=== PATIENT | male | born 1955 | race Caucasian/White ===

== ENCOUNTER 2019-05-10 10:08 | Inpatient (IN) | payer OTHER ==
[~2019-05-10] VITALS: Ht 175.3 cm; Wt 83.5 kg
[2019-05-10 12:30] VITALS: BP 146/67
--- NOTE | 2019-05-10 12:31 | HPEPDOC ---
School Speech Language Pathologist Note DATE OF ADMISSION: 05/10/19 SOURCE OF ADMISSION INFORMATION: Patient and [facility] records CHIEF COMPLAINT: stroke HISTORY OF PRESENT ILLNESS: 63M pmh HTN, DM who developed a left facial droop and altered mental status who presented to [facility] on 04/26/19 and admitted for stroke. MRI showed, Acute small infarcts within bilateral thalami, right midbrain, right occipital lobe and left cerebellum. These findings are likely related to embolic disease. CT angio head and neck revealed a right P1 occlusion with bilateral vertebral artery stenosis, outside the tPA window and not a candidate for thrombectomy. He was started on Asa and Plavix to be continued for 90 days, stop date 08/07/19, then to be followed by ASA only. He had severe dysphagia and had a PEG tube placed on 05/06/19 in addition to urinary retention for which he was seen by urology who recommended doxazosin and jane with outpatient follow-up. Repeat CTH on 05/07/19 showed No evidence of acute intracranial hemorrhage, extraaxial fluid or midline shiftRedemonstration of right occipital lobe infarctionOvoid 1 cm bilateral thalamic infarctions, stable. 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 ECHO on 04/28/19 showed LVEF 65-70% unable to comment on regional wall motionno interatrial shunt visualized by bubble study. EEG was also performed on 05/02/19 due to low arousal which was negative for epileptiform activity.Provigil was initiated then later discontinued due to increased agitation requiring Seroquel. He was evaluated by therapy, found to be well below his prior level of function and deemed medically appropriate for discharge to ARU on 05/10/19. REVIEW OF SYSTEMS: The following is a completed review of systems and has been reviewed. Review of systems otherwise unremarkable. PAIN: Patient self reports no pain EYES: +visual deficit EARS, NOSE, & THROAT:+dysphagia CARDIOVASCULAR: Denies chest pain or palpitations PULMONARY: Denies shortness of breath GASTROINTESTINAL: Denies constipation/diarrhea GENITOURINARY: +urinary retention MUSCULOSKELETAL: no joint pain/deformities NEUROLOGICAL:+stroke HEMATOLOGICAL: no easy bruising SKIN: PeG site PSYCHIATRIC: +confused All other review of systems found to be negative. PAST MEDICAL HISTORY: as per HIP PAST SURGICAL HISTORY: as per HPI ALLERGIES: Please see below. MEDICATIONS: Please see below. SOCIAL HISTORY: no ETOH, smoking, or illicit drugs DIET: NPO tube feeds PHYSICAL EXAMINATION: VITAL SIGNS: Please see below. GENERAL: Pleasant and cooperative. No acute distress. HEENT: PERRL. Extraocular movements impaired, eyes fixed inferiorly and to the right, unable to cross midline or gaze vertically, Clear conjunctiva CARDIOVASCULAR: Regular rate and rhythm. No murmurs, rubs, or gallops LUNGS: Clear to auscultation bilaterally. No wheezes. No rhonchi ABDOMEN: Soft, nontender, nondistended. Positive bowel sounds. Normal active bowel sounds +PEG NEUROLOGICAL: Alert and oriented to self only . 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 4/5 strength in left lower extremity. SKIN:no rash LABORATORY DATA: Please see below. A1C 9.8% IMAGING:Imaging documentation personally reviewed by record FUNCTIONAL STATUS: Premorbid: Independent with all activities of daily life as well as mobility On Admission: Min assist walking, Mod-Max stairs, Unable to do bed mobility, total dressing, toileting and eating GOALS: Supervision with RW household distances, stairs, functional transfers, toileting, eating, dressing, medical optimization, assess for DME needs ASSESSMENT:63-year-old M with past medical history of HTN and DM who presents status post stroke PLAN: 1. Rehab: PT strengthen, stretch, maintain ROM bilat LE, advance gait training OT strengthen, stretch, maintain ROM bilat UE, adapt therapies for visual deficits HEDGE FUND PRINCIPAL: advance diet when safe, cognitive evaluation and treat aphasia, NPO with PEG 2. 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 Cardiac: pmh HTN, c/u BP meds and adjust prn, medicine consulted to assist in management -will discuss possibility of in-house loop recorder placement with cardiology for possible cryptogenic stroke 4. Resp: encourage incentive spirometry, will order CXR for recent PEG placement and poor oral secretion management for possible aspiration PNA 5. Endo: pmh DM, cu ISS FS q6h 6. : urinary retention with Jane placed per [facility] urology, will consider voiding trial once with [place] cath within 48hr of admission -collect UA to r/o infection 7. DVT ppx: Lovenox and TEDs 8. GI ppx: Lansoprazole BID 9. Nutrition: PEG feeds, will obtain dietary consult 10. Skin: turn q2h and monitor for skin break down 11. Psych: episodes of agitation, trazodone ordered prn, insomnia c/u trazodone 25mg standing 12. Dispo: tbd POST ADMISSION PHYSICIAN EVALUATION: Medical and functional status: Description of medical status, medical assessment: As above. Rehabilitation diagnosis and current and prior cold morbid medical conditions as above. Risk of complications and plans to mitigate them as above. Description of functional status current status is as above. Prior status as above. Status compared to preadmission: There are no clinically significant differences between the patient's current status and the information described on the preadmission screening document. Treatment plan anticipated: Treatment plan is as described above. Required disciplines including physical therapy, occupational therapy, others as noted above. Intensity of services: 3 hours a day, 6 days a week. Special considerations: There are no specific special or safety considerations that would likely preclude immediate implementation of an intensive rehabilitation program or subsequently influence the plan of care. ATTESTATION: Considering all the information above, it is my best judgment that this patient requires intensive rehabilitation therapy as described above and an inpatient hospital environment due to the complexity of nursing, medical, and rehabilitation needs required by the patient. Furthermore, this patient can reasonably be expected to participate in an benefit from an inpatient rehabilitation stay with an interdisciplinary team approach to the delivery of rehabilitation care under the direction and supervision of rehabilitation physician. PROGNOSIS: Excellent ESTIMATED LENGTH OF STAY:28-32 days. PROJECTED DISCHARGE DESTINATION: Home with family support and any durable medical equipment required to increase functional safety and mobility TIME SPENT COUNSELING AND COORDINATING INITIAL CARE: Greater than 70 minutes. Vital Signs Vital Signs Date Time Temp Pulse Resp B/P (MAP) Pulse Ox O2 Delivery O2 Flow Rate FiO2 05/10/19 12:30 97.4 76 18 146/67 (93) 96 Home Medications Scheduled Aspirin (Aspirin) 81 Mg Tab.chew, 81 MG PO DAILY, (Reported) STARTED AT [facility] Atorvastatin Calcium (Lipitor) 80 Mg Tablet, 80 MG PO DAILY, (Reported) STARTED AT [facility] Carbamide Peroxide (Gly-Oxide) 15 Ml Solution, 5 DROP MT ACHS, (Reported) STARTED AT [facility] Clopidogrel Bisulfate (Clopidogrel) 75 Mg Tablet, 75 MG PO DAILY, (Reported) STARTED AT [facility] Doxazosin Mesylate (Doxazosin) 2 Mg Tablet, 2 MG PO DAILY, (Reported) STARTED AT [facility] Enoxaparin Sodium (Lovenox) 40 Mg/0.4 Ml Syringe, 40 MG SC DAILY, (Reported) STARTED AT [facility] Insulin Human Lispro (Humalog) 100 Unit/1 Ml Vial, 1 DOSE SC ACHS, (Reported) STARTED AT [facility] Lisinopril (Lisinopril) 5 Mg Tablet, 5 MG PO DAILY, (Reported) Melatonin (Melatonin) 5 Mg Tablet, 5 MG PO QHS, (Reported) Scheduled PRN Acetaminophen (Tylenol) 325 Mg Tablet, 650 MG PO QID PRN for PAIN, (Reported) Quetiapine Fumarate (Quetiapine Fumarate) 25 Mg Tablet, 25 MG PO Q8H PRN for AGITATION, (Reported) STARTED AT [facility] Allergies Coded Allergies: No Known Allergies (Unverified , 05/10/19) A-FIB/CHADSVASC A-FIB History Current/History of A-Fib/PAF?: No Current PO Anticoag Therapy: No SHARAN HOOVER MD May 10, 2019 12:31
[2019-05-10] MEDS ORDERED: GLUCAGON FOR INJ 1 MG VIAL (J1610) SC PRN (12:45)
[2019-05-10] MEDS ORDERED: traZODone 25MG PER 1/2 TABLET PO PRN (12:45)
[2019-05-10] MEDS ORDERED: GLUCOSE 4 GM CHEW TABLET PO PRN (12:45)
[2019-05-10] MEDS ORDERED: DEXTROSE 50% 50 ML SYRINGE IV PRN (12:45)
[2019-05-10] MEDS ORDERED: DOXA2TAB3 PO (13:08)
[2019-05-10] MEDS ORDERED: CLOP75TA2 PO (13:08)
[2019-05-10] MEDS ORDERED: QUET1TAB7 PO (13:08)
[2019-05-10] MEDS ORDERED: [UNRECOGNIZED DRUG - CODE] MT (13:08)
[2019-05-10] MEDS ORDERED: LISI-542 PO (13:08)
[2019-05-10] MEDS ORDERED: LIPI80TA PO (13:08)
[2019-05-10] MEDS ORDERED: INSUHUMDS SC (13:08)
[2019-05-10] MEDS ORDERED: ACET-907 PO (13:08)
[2019-05-10] MEDS ORDERED: LOVE1INJ SC (13:08)
[2019-05-10] MEDS ORDERED: ASPI81CH44 PO (13:08)
[2019-05-10] MEDS ORDERED: MELA5TAB7 PO (13:08)
[2019-05-10] MEDS: LANSOPRAZOLE SUSPENSION 30 MG/10 ML ORAL SYRINGE (FIRST-LANSOPRAZOLE) PEG SCH (16:27)
[2019-05-10] MEDS: POLYVINYL ALCOHOL OPHTH SOLN 15 ML(LIQUITEARS) OU SCH ×3 (16:59→20:39)
[2019-05-10] MEDS: HumaLOG INSULIN (NovoLOG) PER UNIT SC SCH (16:59)
--- NOTE | 2019-05-10 17:56 | CR ---
DATE OF CONSULTATION: 05/10/2019 REFERRING PHYSICIAN: Dr. Clemens REASON OR CONSULT: Management of chronic medial problems, hypertension, diabetes. HISTORY OF PRESENTING ILLNESS: This is a 63-year-old male with hypertension and diabetes who was transferred to [facility] after being treated for acute ischemic bilateral thalamic right occipital right cerebellar stroke at [facility]. 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 He called EMS after pulling over as he was driving erratically. CT of the brain in the emergency room was negative for acute hemorrhage, acute ischemic stroke. He was not a candidate for IV TPA due to the time of presentation and was transferred to [facility] for further workup. The patient had a STAT CT angio which showed a YP1 occlusion with bilateral vertebral artery stenosis and was not a candidate for mechanical thrombectomy. His admitting blood pressure was over 200 and glucose was over 85. He was admitted to the neurology stroke service and was started on aspirin and Plavix which was held on 05/02 for feeding tube placement on 05/06. He continued to have facial drooping and dysphagia with aspiration risk and patient was fed through a feeding tube. MRI of the brain showed acute right posterior cerebral infarct. MRA of the brain showed a 2.8 mm aneurysm of the left proximal supraclinoid internal carotid artery. Bubble study echo was done on 04/28/2019 with no interatrial shunting visualized. EF was 65 to 70 percent. EEG was abnormal consistent with encephalopathy with slow and disorganized background but no epileptiform activity was seen. He continued to have persistent dysarthria often disoriented according to the and at times not remembering who she is or who the family is. He continues to have left sided hemianopia. The patient was subsequently transferred to subacute rehabilitation. PAST MEDICAL HISTORY: Hypertension, diabetes. 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 PAST SURGICAL HISTORY: Hernia surgery, feeding tube placement. ALLERGIES: No known drug allergies. SOCIAL HISTORY: [employer] and is self employed. Social alcohol use. Quit smoking 10-15 years ago. Previously smoked a pack a day for about 10-years. FAMILY HISTORY: Father is alive in his 80's. He used to drink alcohol and smoke cigarettes. Mother in her late 80's with carotid artery stenosis. REVIEW OF SYSTEMS: Could not be obtained as patient has moderate dysarthria. PHYSICAL EXAMINATION: VITALS: Temperature 97.4, pulse 76, respiratory rate 18, blood pressure 146/67, 96% on room air. Generally the patient is awake, alert and oriented to himself only. He is oriented to date and time. He is following commands. He has purposeful movement. Patient is able to follow single with extraocular muscles. He continues to have some dysarthria. His speech is fluent. Sensory is intact bilaterally upper and lower extremities. There is no pronator drift. Bilateral motor function is 5/5 in the bilateral upper extremities and lower extremities. Gait was deferred. Lungs are clear to auscultation. No wheezes, rales or rhonchi. Heart S1, S2 sinus rhythm. No murmurs, rubs or gallops. Abdomen is soft and nontender and nondistended. Extremities no cyanosis, clubbing or pitting edema. The patient had a feeding tube, percutaneous endoscopic gastrostomy tube clean and dry. No erythema or tenderness. LABORATORY DATA: Pending. On 05/10/2019 lab data at [facility] white count 9, hemoglobin 12, hematocrit 36, platelet count 439, sodium 134, potassium 4, chloride 94, BUN 11, creatinine 0.51, glucose 192. A1c of 9.8. ASSESSMENT AND PLAN: This is a 63-year-old male with diabetes, hypertension, previous history of smoking quit about 10 years who presented to an [facility] 04/26/2019 with dysarthria, facial droop, altered mental status and was driving erotically. CT of the head was negative and patient was sent to [facility] and was found to have acute ischemic bilateral thalamic right occipital and right cerebellar stroke. The patient had a negative bubble study. He was found to have severe stenosis right proximal P2 segment with a hyperdense vessel sign at that level, severe stenosis left cavernous and supraclinoid ICA with 70% narrowing of the lumen and focal occlusion of left V4 segment severe stenosis due to atherosclerotic plaque. The patient was treated with aspirin and Plavix and discharged to acute rehabilitation unit at [facility] for PMR services. Presenting blood pressure at [facility] was 220 and goal was to get the blood pressure less than 130. He is currently in Lisinopril. ACUTE ISSUES: 1. CVA. Bilateral thalamic right occipital, right cerebellar secondary to bilateral vertebral basal intracranial and extracranial artery disease in the setting of diabetes, hypertension and prior history of smoking. Patient is continued on aspirin atorvastatin, Plavix. Plavix is to be continued for three months time. 2. Hypertension. Presenting blood pressure during his stroke symptom was 219 and currently stable with goal of less than 130/90. He is currently on Lisinopril 5 mg daily. 3. Acute encephalopathy secondary to CVA according to the the patient at times pulls on his feeding tube and Estrada catheter and requires a sitter. Sitter will be provided. Seroquel as needed every 8 hours. 4. Type 2 diabetes. He is currently on Lispro insulin sliding scale. A1c is elevated at 9.8. Depending on the finger sticks every 6 hours on the feeding tube as he is nothing by mouth status, may need to start on basal insulin, Levemir insulin once daily. 5. DVT prophylaxis. Currently on Lovenox subcu. MTDD
[2019-05-10] MEDS ORDERED: CARBAMIDE PEROXIDE 6.5% OTIC SOLN 15ML XX SCH (18:30)
[2019-05-10] MEDS ORDERED: GLY OXIDE SSP SCH (18:30)
--- NOTE | 2019-05-10 18:55 | REP ---
Bilateral lower extremity Duplex Doppler venous ultrasound: Real time compression and duplex Doppler interrogation of the bilateral lower extremity deep venous system is performed. Bilaterally, the common femoral, superficial femoral and popliteal veins are fully compressible with transducer pressure and demonstrate normal spontaneous and phasic flow, without evidence of deep venous thrombosis. Impression: No evidence of deep venous thrombosis of the bilateral lower extremity femoral popliteal venous system. Electronically Signed by Yash Velázquez MD 05/10/2019 06:46 P
--- NOTE | 2019-05-10 19:38 | REP ---
CHEST, SINGLE VIEW: Single view of the chest is performed. There appears to be infiltrate laterally in the left lung base. The right lung is clear. Cardiac silhouette is mildly prominent. There is calcification of the thoracic aorta. There are degenerative changes of the spine. IMPRESSION: Infiltrate lateral left base. Electronically Signed by Yash Velázquez MD 05/12/2019 04:36 P
[2019-05-10 20:00] VITALS: BP 168/80
[2019-05-10] MEDS: ACETAMINOPHEN 325 MG/10.15 ML UDC GT PRN (20:39)
[2019-05-10] MEDS ORDERED: LEVEMIR (INSULIN DETEMIR) 1 UNITS/0.01ML SC SCH (21:00)
[2019-05-10] MEDS ORDERED: traZODone 25MG PER 1/2 TABLET PO SCH (21:00)
[2019-05-10] MEDS ORDERED: HumaLOG INSULIN (NovoLOG) PER UNIT SC SCH (21:00)
[2019-05-11 05:52] VITALS: BP 143/68
[2019-05-11 06:17] LABS: BASO # 0.1 10^3/uL (0.0-0.2); BASO % 0.6 % (0.0-1.0); EOS # 0.3 10^3/uL (0.0-0.5); EOS % 2.5 % (0.0-3.0); HEMATOCRIT 35.9 % (42.0-52.0); HEMOGLOBIN 11.9 g/dl (13.5-17.5); LYMPH # 2.4 10^3/uL (1.5-5.0); LYMPH % 23.6 % (24.0-44.0); MEAN CORPUSCULAR HGB CONC 33.1 g/dl (32.0-36.5); MEAN CORPUSCULAR VOLUME 87.3 fl (80.0-96.0); MONO # 0.9 10^3/uL (0.0-0.8); MONO % 8.5 % (0.0-5.0); NEUTROPHILS # 6.4 10^3/uL (1.5-8.5); NEUTROPHILS % 64.2 % (36.0-66.0); PLATELET COUNT, AUTOMATED 481 10^3/uL (150-450); RED BLOOD COUNT 4.11 10^6/uL (4.30-6.10)
[2019-05-11 06:39] LABS: HEMOGLOBIN A1c 9.1 %
[2019-05-11 06:47] LABS: ALBUMIN 2.9 GM/DL (3.2-5.2); ALT/SGPT 41 U/L (12-78); BILIRUBIN,TOTAL 0.3 MG/DL (0.2-1.0); BLOOD UREA NITROGEN 13 MG/DL (7-18); CALCIUM LEVEL 8.9 MG/DL (8.8-10.2); CARBON DIOXIDE LEVEL 33 MEQ/L (21-32); CHLORIDE LEVEL 97 MEQ/L (98-107); GLOMERULAR FILTRATION RATE > 60.0 (>49); GLUCOSE, FASTING 272 MG/DL (70-100); POTASSIUM SERUM 3.9 MEQ/L (3.5-5.1); SODIUM LEVEL 135 MEQ/L (136-145)
[2019-05-11] MEDS ORDERED: MAGIC MOUTHWASH SUSPENSION BTL SSP SCH (07:30)
[2019-05-11] MEDS: HumaLOG INSULIN (NovoLOG) PER UNIT SC SCH ×3 (07:56→18:23)
[2019-05-11] MEDS: ENOXAPARIN 40 MG/0.4 ML SYRINGE (J1650) SC SCH (07:57)
[2019-05-11] MEDS: LANSOPRAZOLE SUSPENSION 30 MG/10 ML ORAL SYRINGE (FIRST-LANSOPRAZOLE) PEG SCH ×2 (07:57→20:54)
[2019-05-11] MEDS: ASPIRIN 81 MG CHEW TABLET PEG SCH (07:57)
[2019-05-11] MEDS: CLOPIDOGREL 75 MG TAB PO SCH (07:59)
[2019-05-11] MEDS: ATORVASTATIN 20 MG TAB GT SCH (07:59)
[2019-05-11] MEDS: POLYVINYL ALCOHOL OPHTH SOLN 15 ML(LIQUITEARS) OU SCH ×4 (08:00→21:01)
[2019-05-11] MEDS ORDERED: LISINOPRIL 5 MG TAB PO SCH (09:00)
[2019-05-11] MEDS ORDERED: DOXAZOSIN MESYLATE 1 MG TAB PO SCH (09:00)
[2019-05-11] MEDS ORDERED: traZODone 25MG PER 1/2 TABLET GT PRN (11:45)
--- NOTE | 2019-05-11 11:52 | IPNPDOC ---
PM&R Progress Note DATE OF SERVICE: May 11, 2019 Program Director [employer] Progress Note Subjective: Patient seen in the evening, was yael to say his 's name and follow commands. He appeared calm. REVIEW OF SYSTEMS: The following is a completed review of systems and has been reviewed. Review of systems otherwise unremarkable. PAIN: Patient self reports no pain EYES: +visual deficit EARS, NOSE, & THROAT:+dysphagia CARDIOVASCULAR: Denies chest pain or palpitations PULMONARY: Denies shortness of breath GASTROINTESTINAL: Denies constipation/diarrhea GENITOURINARY: +urinary retention MUSCULOSKELETAL: no joint pain/deformities NEUROLOGICAL:+stroke HEMATOLOGICAL: no easy bruising SKIN: PeG site PSYCHIATRIC: +confused All other review of systems found to be negative. PHYSICAL EXAMINATION: VITAL SIGNS: Please see below. GENERAL: Pleasant and cooperative. No acute distress. HEENT: PERRL. Extraocular movements impaired, eyes fixed inferiorly and to the right, unable to cross midline or gaze vertically, Clear conjunctiva CARDIOVASCULAR: Regular rate and rhythm. No murmurs, rubs, or gallops LUNGS: Clear to auscultation bilaterally. No wheezes. No rhonchi ABDOMEN: Soft, nontender, nondistended. Positive bowel sounds. Normal active bowel sounds +PEG NEUROLOGICAL: Alert and oriented to self only . 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 4/5 strength in left lower extremity. SKIN:no rash ASSESSMENT:63-year-old M with past medical history of HTN and DM who presents status post stroke PLAN: 1. Rehab: PT strengthen, stretch, maintain ROM bilat LE, advance gait training OT strengthen, stretch, maintain ROM bilat UE, adapt therapies for visual deficits RAG BOILER: advance diet when safe, cognitive evaluation and treat aphasia, NPO with PEG 2. 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 Cardiac: pmh HTN, c/u BP meds and adjust prn, medicine consulted to assist in management -will discuss possibility of in-house loop recorder placement with cardiology for possible cryptogenic stroke 4. Resp: encourage incentive spirometry, admission CXR +left lower lobe infiltrate, will start Levofloxacin, Duonebs and Guaifenesin- no leukocytosis at this point, will continue to monitor 5. Endo: pmh DM, cu ISS FS q6h 6. : urinary retention with Estrada placed per [facility] urology, will consider voiding trial once with [place] cath within 48hr of admission -collect UA to r/o infection 7. DVT ppx: Lovenox and TEDs, admission Dopplers negative 8. GI ppx: Lansoprazole BID 9. Nutrition: PEG feeds 10. Skin: turn q2h and monitor for skin break down 11. Psych: episodes of agitation, trazodone ordered prn, insomnia c/u trazodone 25mg standing -will also add Propranolol 10 mg TID to assist with agitation which may have a component of dysautonomia in setting of stroke 12. Dispo: tbd Allergies Coded Allergies: No Known Allergies (Unverified , 05/10/19) Vital Signs Vital Signs Date Time Temp Pulse Resp B/P (MAP) Pulse Ox O2 Delivery O2 Flow Rate FiO2 05/11/19 07:59 143/68 05/11/19 05:52 98.1 68 18 95 Laboratory Data CBC/BMP Laboratory Tests 05/11/19 05:54 Red Blood Count 4.11 L, Mean Corpuscular Volume 87.3, Mean Corpuscular Hemoglobin 29.0, Mean Corpuscular Hemoglobin Concent 33.1, Red Cell Distribution Width 11.3 L, Neutrophils (%) (Auto) 64.2, Lymphocytes (%) (Auto) 23.6 L, Monocytes (%) (Auto) 8.5 H, Eosinophils (%) (Auto) 2.5, Basophils (%) (Auto) 0.6, Neutrophils # (Auto) 6.4, Lymphocytes # (Auto) 2.4, Monocytes # (Auto) 0.9 H, Eosinophils # (Auto) 0.3, Basophils # (Auto) 0.1, Calcium Level 8.9, Aspartate Amino Transf (AST/SGOT) 20, Alanine Aminotransferase (ALT/SGPT) 41, Al kaline Phosphatase 93, Total Bilirubin 0.3, Total Protein 7.0, Albumin 2.9 L Labs 24H Laboratory Tests 2 05/10/19 16:47: Bedside Glucose (Misc Panel) 159H 05/10/19 20:28: Bedside Glucose (Misc Panel) 173H 05/11/19 05:54: Immature Granulocyte % (Auto) 0.6, White Blood Count 10.0, Red Blood Count 4.11L, Hemoglobin 11.9L, Hematocrit 35.9L, Mean Corpuscular Volume 87.3, Mean Corpuscular Hemoglobin 29.0, Mean Corpuscular Hemoglobin Concent 33.1, Red Cell Distribution Width 11.3L, Platelet Count 481H, Neutrophils (%) (Auto) 64.2, Lymphocytes (%) (Auto) 23.6L, Monocytes (%) (Auto) 8.5H, Eosinophils (%) (Auto) 2.5, Basophils (%) (Auto) 0.6, Neutrophils # (Auto) 6.4, Lymphocytes # (Auto) 2.4, Monocytes # (Auto) 0.9H, Eosinophils # (Auto) 0.3, Basophils # (Auto) 0.1, Nucleated Red Blood Cells % (auto) 0.0, Anion Gap 5L, Glomerular Filtration Rate > 60.0, Estimated Mean Plasma Glucose 214H, Hemoglobin A1c 9.1, Blood Urea Nitrogen 13, Creatinine 0.70, Sodium Level 135L, Potassium Level 3.9, Chloride Level 97L, Carbon Dioxide Level 33H, Calcium Level 8.9, Aspartate Amino Transf (AST/SGOT) 20, Alanine Aminotransferase (ALT/SGPT) 41, Alkaline Phosphatase 93, Total Bilirubin 0.3, Total Protein 7.0, Albumin 2.9L, Albumin/Globulin Ratio 0.71L Current Medications Current Medications Current Medications Medications (Trade) Dose Ordered Sig/Maricruz Route PRN Reason Start Time Stop Time Status Last Admin Dose Admin Acetaminophen (Tylenol Suspension) 650 mg Q4HP PRN GT PAIN OR FEVER 05/10/19 12:45 05/10/19 20:39 Albuterol/ Ipratropium (Duoneb (Ipr 0.5mg/Alb 2.5mg)) 3 ml RBID NEB 05/11/19 08:00 Artificial Tears (Akwa Tears) 2 drop QID OU 05/10/19 13:00 05/11/19 08:00 Aspirin (Aspirin Chewable) 81 mg DAILY PEG 05/11/19 09:00 05/11/19 07:57 Atorvastatin Calcium (Lipitor) 80 mg DAILY GT 05/11/19 09:00 05/11/19 07:59 Carbamide Peroxide (Debrox) 5 drop PCHS XX 05/10/19 18:30 05/14/19 18:29 Cancel Clopidogrel Bisulfate (PLAVix) 75 mg DAILY PO 05/11/19 09:00 05/11/19 07:59 Dextrose (Dextrose 50%) 25 ml ASDIRECTED PRN IV SEE LABEL COMMENTS 05/10/19 12:45 Doxazosin Mesylate (Cardura) 2 mg DAILY PO 05/11/19 09:00 05/11/19 07:58 Enoxaparin Sodium (Lovenox) 40 mg DAILY SC 05/11/19 09:00 05/11/19 07:57 Glucagon (Glucagon) 1 mg ASDIRECTED PRN SC SEE LABEL COMMENTS 05/10/19 12:45 Glucose (Glucose) 16 GM ASDIRECTED PRN PO SEE LABEL COMMENTS 05/10/19 12:45 Guaifenesin (Robitussin) 10 ml BID GT 05/11/19 09:00 Home Med (Med Rec Complete!) ASDIRECTED XX 05/10/19 13:30 05/10/19 13:30 DC Insulin Detemir (Levemir Insulin) 10 units QHS MN 05/10/19 21:00 Insulin Human Lispro (HumaLOG INSULIN) SEE PROTOCOL TABLE AC SC 05/10/19 17:30 05/11/19 07:56 Insulin Human Lispro (HumaLOG INSULIN) SEE PROTOCOL TABLE QHS MN 05/10/19 21:00 Lansoprazole (First-Lansoprazole Oral Suspension) 30 mg DAILY PEG 05/10/19 09:00 05/11/19 07:57 Levofloxacin (Levaquin) 750 mg DAILY@06 GT 05/11/19 10:30 05/17/19 06:01 Lidocaine/ Diphenhydr/Alum/ Mg/Simeth (Magic Mouthwash) 5ml AC SSP 05/11/19 07:30 05/11/19 07:54 Lisinopril (Prinivil) 5 mg DAILY PO 05/11/19 09:00 05/11/19 07:59 Patient Own Medication (Patient'S Own Med) PCHS MT 05/10/19 18:30 UNV Trazodone HCl (Desyrel) 25 mg Q6HP PRN PO AGITATION 05/10/19 12:45 Trazodone HCl (Desyrel) 25 mg QHS PO 05/10/19 21:00 05/10/19 20:39 SHARAN HOOVER MD May 11, 2019 11:52
[2019-05-11] MEDS: LevoFLOXacin 750 MG TABLET GT SCH (12:34)
[2019-05-11] MEDS: guaiFENesin SYRUP 200 MG/10 ML UDC GT SCH ×2 (12:34→20:53)
[2019-05-11 14:00] VITALS: BP 144/74
[2019-05-11] MEDS: IPRATROPIUM 0.5MG/ALBUTEROL 2.5MG INH SOL UD 3ML (DUONEB)(J7620) NEB SCH ×2 (14:01→19:31)
[2019-05-11 20:00] VITALS: BP 165/77
[2019-05-11] MEDS: FLUoxetine 20 MG CAP GT SCH (20:53)
[2019-05-11] MEDS ORDERED: traZODone 25MG PER 1/2 TABLET GT SCH (21:00)
[2019-05-11] MEDS: PROPRANOLOL 20 MG/5 ML PO SCH (21:06)
[2019-05-12] MEDS: LEVEMIR (INSULIN DETEMIR) 1 UNITS/0.01ML SC SCH
[2019-05-12] MEDS: HumaLOG INSULIN (NovoLOG) PER UNIT SC SCH ×3 (00:53→13:07)
[2019-05-12 04:00] VITALS: BP 176/80
[2019-05-12] MEDS: LevoFLOXacin 750 MG TABLET GT SCH (06:43)
[2019-05-12] MEDS: IPRATROPIUM 0.5MG/ALBUTEROL 2.5MG INH SOL UD 3ML (DUONEB)(J7620) NEB SCH (07:28)
[2019-05-12] MEDS ORDERED: LISINOPRIL 5 MG TAB GT SCH (09:00)
[2019-05-12] MEDS: LANSOPRAZOLE SUSPENSION 30 MG/10 ML ORAL SYRINGE (FIRST-LANSOPRAZOLE) PEG SCH ×2 (09:00→22:20)
[2019-05-12] MEDS ORDERED: LORazepam 2 MG/ML VIAL (J2060) IM PRN (09:15)
[2019-05-12] MEDS: ENOXAPARIN 40 MG/0.4 ML SYRINGE (J1650) SC SCH (09:29)
[2019-05-12] MEDS: PROPRANOLOL 20 MG/5 ML PO SCH ×2 (09:30→22:45)
[2019-05-12] MEDS: CLOPIDOGREL 75 MG TAB PO SCH (09:30)
[2019-05-12] MEDS: DOXAZOSIN MESYLATE 1 MG TAB GT SCH (09:30)
[2019-05-12] MEDS: ASPIRIN 81 MG CHEW TABLET PEG SCH (09:31)
[2019-05-12] MEDS: guaiFENesin SYRUP 200 MG/10 ML UDC GT SCH ×2 (09:31→22:19)
[2019-05-12] MEDS: POLYVINYL ALCOHOL OPHTH SOLN 15 ML(LIQUITEARS) OU SCH ×4 (09:31→22:26)
[2019-05-12] MEDS: ATORVASTATIN 20 MG TAB GT SCH (09:31)
--- NOTE | 2019-05-12 11:12 | IPNPDOC ---
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 REVIEW OF SYSTEMS: The following is a completed review of systems and has been reviewed. Review of systems otherwise unremarkable. PAIN: Patient self reports no pain EYES: +visual deficit EARS, NOSE, & THROAT:+dysphagia CARDIOVASCULAR: Denies chest pain or palpitations PULMONARY: Denies shortness of breath GASTROINTESTINAL: Denies constipation/diarrhea GENITOURINARY: +urinary retention MUSCULOSKELETAL: no joint pain/deformities NEUROLOGICAL:+stroke HEMATOLOGICAL: no easy bruising SKIN: PeG site PSYCHIATRIC: +confused All other review of systems found to be negative. PHYSICAL EXAMINATION: VITAL SIGNS: Please see below. GENERAL: Pleasant and cooperative. No acute distress. HEENT: PERRL. Extraocular movements impaired, eyes fixed inferiorly and to the right, unable to cross midline or gaze vertically, Clear conjunctiva CARDIOVASCULAR: Regular rate and rhythm. No murmurs, rubs, or gallops LUNGS: Clear to auscultation bilaterally. No wheezes. No rhonchi ABDOMEN: Soft, nontender, nondistended. Positive bowel sounds. Normal active bowel sounds +PEG NEUROLOGICAL: Alert and oriented to self only . 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 4/5 strength in left lower extremity. SKIN:no rash ASSESSMENT:63-year-old M with past medical history of HTN and DM who presents status post stroke PLAN: 1. 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 Cardiac: pmh HTN, c/u BP meds and adjust prn, medicine consulted to assist in management -will discuss possibility of in-house loop recorder placement with cardiology for possible cryptogenic stroke 4. Resp: encourage incentive spirometry, admission CXR +left lower lobe infiltrate, will start Levofloxacin, Duonebs and Guaifenesin- no leukocytosis at this point, will continue to monitor 5. Endo: pmh DM, cu ISS FS q6h 6. : urinary retention with Estrada placed per [facility] urology, will consider voiding trial once with [place] cath within 48hr of admission-plan to d/c catheter tomorrow -collect UA to r/o infection- UA negative 7. DVT ppx: Lovenox and TEDs, admission Dopplers negative 8. GI ppx: Lansoprazole BID 9. Nutrition: PEG feeds 10. Skin: turn q2h and monitor for skin break down 11. Psych: episodes of agitation, trazodone ordered prn, insomnia c/u trazodone 25mg qHS standing -will also add Propranolol 10 mg TID to assist with agitation which may have a component of dysautonomia in setting of stroke -may use Ativan IM prn agitation if trazodone does not work -avoid overstimulating and adjust environment prn 12. Dispo: tbd Allergies Coded Allergies: No Known Allergies (Unverified , 05/10/19) Vital Signs Vital Signs Date Time Temp Pulse Resp B/P (MAP) Pulse Ox O2 Delivery O2 Flow Rate FiO2 05/12/19 09:31 176/80 05/12/19 09:30 89 05/12/19 09:12 18 97 05/12/19 04:00 98.9 Laboratory Data Labs 24H Laboratory Tests 2 05/11/19 12:08: Bedside Glucose (Misc Panel) 155H 05/11/19 14:04: Urine Color YELLOW, Urine Appearance CLOUDYH, Urine pH 9.0, Urine Specific [place] 1.014, Urine Protein NEGATIVE, Urine Glucose (UA) NEGATIVE, Urine Ketones NEGATIVE, Urine Blood NEGATIVE, Urine Nitrite NEGATIVE, Urine Bilirubin NEGATIVE, Urine Urobilinogen 0.2, Urine Leukocyte Esterase NEGATIVE, Urine WBC (Auto) 0, Urine RBC (Auto) 0, Urine Hyaline Casts (Auto) 0, Urine Bacteria ( Auto) NEGATIVE, Urine Squamous Epithelial Cells 0, Urine Amorphous Sediment SMALLH, Urine Mucus (Auto) SMALL, Urine Sperm (Auto) 05/11/19 18:19: Bedside Glucose (Misc Panel) 134H 05/12/19 00:14: Bedside Glucose (Misc Panel) 162H 05/12/19 06:22: Bedside Glucose (Misc Panel) 174H Current Medications Current Medications Current Medications Medications (Trade) Dose Ordered Sig/Maricruz Route PRN Reason Start Time Stop Time Status Last Admin Dose Admin Acetaminophen (Tylenol Suspension) 650 mg Q4HP PRN GT PAIN OR FEVER 05/10/19 12:45 05/10/19 20:39 Albuterol/ Ipratropium (Duoneb (Ipr 0.5mg/Alb 2.5mg)) 3 ml RBID NEB 05/11/19 08:00 05/12/19 07:28 Artificial Tears (Akwa Tears) 2 drop QID OU 05/10/19 13:00 05/12/19 09:31 Aspirin (Aspirin Chewable) 81 mg DAILY PEG 05/11/19 09:00 05/12/19 09:31 Atorvastatin Calcium (Lipitor) 80 mg DAILY GT 05/11/19 09:00 05/12/19 09:31 Carbamide Peroxide (Debrox) 5 drop PCHS XX 05/10/19 18:30 05/14/19 18:29 Cancel Clopidogrel Bisulfate (PLAVix) 75 mg DAILY PO 05/11/19 09:00 05/12/19 09:30 Dextrose (Dextrose 50%) 25 ml ASDIRECTED PRN IV SEE LABEL COMMENTS 05/10/19 12:45 Doxazosin Mesylate (Cardura) 2 mg DAILY GT 05/12/19 09:00 05/12/19 09:30 Doxazosin Mesylate (Cardura) 2 mg DAILY PO 05/11/19 09:00 05/11/19 11:43 DC 05/11/19 07:58 Enoxaparin Sodium (Lovenox) 40 mg DAILY SC 05/11/19 09:00 05/12/19 09:29 Fluoxetine HCl (PROzac) 20 mg QHS GT 05/11/19 21:00 05/11/19 20:53 Glucagon (Glucagon) 1 mg ASDIRECTED PRN SC SEE LABEL COMMENTS 05/10/19 12:45 Glucose (Glucose) 16 GM ASDIRECTED PRN PO SEE LABEL COMMENTS 05/10/19 12:45 Guaifenesin (Robitussin) 10 ml BID GT 05/11/19 09:00 05/12/19 09:31 Home Med (Med Rec Complete!) ASDIRECTED XX 05/10/19 13:30 05/10/19 13:30 DC Insulin Detemir (Levemir Insulin) 5 units DAILY@0000 [place] 05/12/19 00:00 Insulin Detemir (Levemir Insulin) 10 units QHS [place] 05/10/19 21:00 05/11/19 11:56 DC Insulin Human Lispro (HumaLOG INSULIN) SEE PROTOCOL TABLE AC [place] 05/10/19 17:30 05/11/19 11:46 DC 05/11/19 07:56 Insulin Human Lispro (HumaLOG INSULIN) SEE PROTOCOL TABLE Q6H [place] 05/11/19 12:00 05/12/19 06:43 Insulin Human Lispro (HumaLOG INSULIN) SEE PROTOCOL TABLE QHS [place] 05/10/19 21:00 05/11/19 11:46 DC Lansoprazole (First-Lansoprazole Oral Suspension) 30 mg BID PEG 05/11/19 21:00 05/12/19 09:00 Lansoprazole (First-Lansoprazole Oral Suspension) 30 mg DAILY PEG 05/10/19 09:00 05/11/19 11:46 DC 05/11/19 07:57 Levofloxacin (Levaquin) 750 mg DAILY@06 GT 05/11/19 10:30 05/17/19 06:01 05/12/19 06:43 Lidocaine/ Diphenhydr/Alum/ Mg/Simeth (Magic Mouthwash) 5ml AC SSP 05/11/19 07:30 05/11/19 11:43 DC 05/11/19 07:54 Lisinopril (Prinivil) 5 mg DAILY GT 05/12/19 09:00 05/12/19 09:31 Lisinopril (Prinivil) 5 mg DAILY PO 05/11/19 09:00 05/11/19 11:43 DC 05/11/19 07:59 Lorazepam (Ativan) 1 mg Q6HP PRN IM AGITATION 05/12/19 09:15 Miscellaneous (Unresolved Patient Own Med Order) SEE LABEL COMMENTS DAILY XX 05/12/19 09:00 Patient Own Medication (Patient'S Own Med) PCHS MT 05/10/19 18:30 UNV Propranolol HCl (Inderal Liquid) 10 mg TID PO 05/11/19 21:00 05/12/19 09:30 Trazodone HCl (Desyrel) 25 mg Q6HP PRN GT AGITATION 05/11/19 11:45 05/11/19 18:36 Trazodone HCl (Desyrel) 25 mg Q6HP PRN PO AGITATION 05/10/19 12:45 05/11/19 11:43 DC Trazodone HCl (Desyrel) 25 mg QHS GT 05/11/19 21:00 05/12/19 09:07 DC 05/11/19 20:53 Trazodone HCl (Desyrel) 25 mg QHS PO 05/10/19 21:00 05/11/19 11:43 DC 05/10/19 20:39 Trazodone HCl (Desyrel) 50 mg QHS GT 05/12/19 21:00 SHARAN HOOVER MD May 12, 2019 11:12
[2019-05-12 14:00] VITALS: BP 96/52
--- NOTE | 2019-05-12 15:30 | REP ---
Acute abdominal series three views including PA chest and supine upright abdomen: PA chest: Comparison is 05/10/2019. On the comparison study there was an infiltrate in the left lateral base. This infiltrate has resolved. Lung morelos are clear. Cardiac size is normal. The lor, mediastinum, skeletal structures are unremarkable. There is no free subdiaphragmatic air. Impression: Negative PA chest. Abdomen, supine upright views: The bowel gas pattern is normal. There is tubing superimposed over the abdomen on the left, possibly a G tube. There are no calcifications. The skeletal and soft tissue structures otherwise are unremarkable except for a thin opaque linear marker superimposed over the inferior pelvis. Impression: Normal bowel gas pattern. Probable G tube. Thin linear marker superimposed over the inferior pelvis. Electronically Signed by Yash Hamilton MD 05/12/2019 03:21 P
--- NOTE | 2019-05-12 15:57 | IPNPDOC ---
Text Note Date of Service The patient was seen on 05/12/19. NOTE 18 F replacement gastrostomy tube placed at the bedside. I am able to flush and aspirate a small amount of the flush but not clearly bilious. Would study the placement of gastrostomy first with gastrograffin before using for feeding/meds. Order for fluoro gastrograffin study placed. If placement ok, can use the replacement tube. Recommend protect tube with abdominal binder. VS,Fishbone, I+O VS, Fishbone, I+O Vital Signs Date Time Temp Pulse Resp B/P (MAP) Pulse Ox O2 Delivery O2 Flow Rate FiO2 05/12/19 14:00 97.7 72 18 96/52 (67) 97 I&O- Last 24 Hours up to 6 AM 05/12/19 06:00 Intake Total 670 ml Output Total 1475 ml Balance -805 ml EREN ROSENBERG MD May 12, 2019 15:57
[2019-05-12] MEDS ORDERED: MORPHINE 10MG/0.5ML ORAL CONCENTRATE SOLUTION U/D SL PRN (16:00)
[2019-05-12 20:00] VITALS: BP 150/71
[2019-05-12] MEDS: D5W/0.45% SODIUM CHLORIDE 1,000 ML IV SCH (21:45)
[2019-05-12] MEDS: traZODone 50 MG TAB GT SCH (22:19)
[2019-05-12] MEDS: FLUoxetine 20 MG CAP GT SCH (22:19)
[2019-05-13] MEDS: LEVEMIR (INSULIN DETEMIR) 1 UNITS/0.01ML SC SCH
[2019-05-13] MEDS: HumaLOG INSULIN (NovoLOG) PER UNIT SC SCH ×5 (00:50→18:00)
[2019-05-13] MEDS: LevoFLOXacin 750 MG TABLET GT SCH (05:03)
[2019-05-13 06:00] VITALS: BP 140/65
[2019-05-13] MEDS: D5W/0.45% SODIUM CHLORIDE 1,000 ML IV SCH ×2 (08:05→17:52)
[2019-05-13] MEDS ORDERED: GASTROGRAFIN SOLUTION 30ML (Q9963) As Ordered ONE (08:16)
[2019-05-13] MEDS: POLYVINYL ALCOHOL OPHTH SOLN 15 ML(LIQUITEARS) OU SCH ×4 (09:00→23:01)
[2019-05-13] MEDS: DOXAZOSIN MESYLATE 1 MG TAB GT SCH (09:00)
[2019-05-13 10:17] LABS: BASO % 0.4 % (0.0-1.0); EOS # 0.1 10^3/uL (0.0-0.5); EOS % 1.3 % (0.0-3.0); HEMOGLOBIN 12.6 g/dl (13.5-17.5); LYMPH # 1.8 10^3/uL (1.5-5.0); LYMPH % 17.2 % (24.0-44.0); MEAN CORPUSCULAR HEMOGLOBIN 29.2 pg (27.0-33.0); MEAN CORPUSCULAR HGB CONC 33.2 g/dl (32.0-36.5); MEAN CORPUSCULAR VOLUME 88.2 fl (80.0-96.0); MONO % 9.4 % (0.0-5.0); NEUTROPHILS # 7.4 10^3/uL (1.5-8.5); NEUTROPHILS % 71.2 % (36.0-66.0); PLATELET COUNT, AUTOMATED 416 10^3/uL (150-450); RED BLOOD COUNT 4.31 10^6/uL (4.30-6.10); WHITE BLOOD COUNT 10.4 10^3/uL (4.0-10.0)
[2019-05-13 10:30] LABS: BLOOD UREA NITROGEN 12 MG/DL (7-18); CALCIUM LEVEL 8.5 MG/DL (8.8-10.2); CARBON DIOXIDE LEVEL 26 MEQ/L (21-32); CHLORIDE LEVEL 100 MEQ/L (98-107); CREATININE FOR GFR 0.62 MG/DL (0.70-1.30); GLOMERULAR FILTRATION RATE > 60.0 (>49); GLUCOSE, FASTING 156 MG/DL (70-100); POTASSIUM SERUM 4.1 MEQ/L (3.5-5.1); SODIUM LEVEL 136 MEQ/L (136-145)
[2019-05-13] MEDS: PROPRANOLOL 20 MG/5 ML PO SCH ×3 (11:46→23:01)
[2019-05-13 13:25] VITALS: BP 143/65
--- NOTE | 2019-05-13 13:34 | IPN ---
DATE: 05/13/2019 SUBJECTIVE: The patient denies any chills or fevers. He does have some increasing congestion. No shortness of breath. No nausea or vomiting. No diarrhea. No headaches or changes in vision. PHYSICAL EXAMINATION: VITAL SIGNS: Temperature 98.9, pulse 65, respiratory rate 18, blood pressure 140/65, 95% on room air. GENERAL: The patient is awake, alert, oriented to person. Answering questions appropriately. No respiratory distress. No use of accessory respiratory muscles. Anicteric. No jaundice. LUNGS: Clear to auscultation. No wheezing, rales or rhonchi. HEART: S1, S2. Sinus rhythm. No murmurs, rubs or gallops. ABDOMEN: Soft, nontender, nondistended. Positive bowel sounds times four quadrants. No rebound or guarding. Feeding tube in place. NEUROLOGIC: : Left facial drooping. Able to squeeze hands. Continues to have some aphasia and left facial field loss. Strength is 4 out of 5 in the left upper and lower extremities. 5/5 in right lower extremity. LABORATORY DATA: White count 10, hemoglobin 12, hematocrit 38, platelet count 416. Sodium 136, potassium 4.1, chloride 100, bicarbonate 26, BUN 12, creatinine 0.62, glucose of 156. HOSPITAL MEDICATIONS: - Lisinopril - trazodone - D5 normal saline - Roxanol - Ativan - Cardura - Levemir - Prozac - lansoprazole - propranolol - insulin sliding scale - trazodone - Levaquin - Lovenox - aspirin - Lipitor - Plavix - Robitussin - artificial tears - Tylenol suspension - hypoglycemic protocol ASSESSMENT AND PLAN: This is a 63-year-old male with hypertension and diabetes who was transferred to [facility] from [facility] where he presented with an acute ischemic bilateral thalamic, right occipital, right cerebellar stroke on 04/26/2019 when he was driving erratically. The patient had an admitting blood pressure of 200 and was started on aspirin and Plavix. Due to dysphagia, the patient underwent feeding tube placement on 05/06/2019. Bubble study echo showed no intraatrial shunting, ejection fraction of 65 to 70%. He continued to have persistent dysarthria and disorientation and left sided hemianopia and left sided hemiparesis. The patient is transferred to acute rehabilitation unit for further rehabilitation. Since he had been at rehabilitation, the patient had malfunctioning feeding tube. CURRENT ACTIVE ISSUES: 1. Feeding tube, which was replaced by general surgery, Dr. Neville, able to flush and aspirate but not clearly bilious. Gastrografin study was done to study the placement of the gastrostomy with fluoroscopy. Abdominal binding to protect the feeding tube from the patient grabbing this.IV fluids to be discontinued once tube feedings resumed. 2. CVA, bilateral thalamic, right occipital, right cerebellar secondary to bilateral vertebral, basal, intracranial and extracranial artery disease in the setting of prior history of smoking, diabetes and hypertension. The patient has exhibited significant confusion and has pulled his feeding tube, which is now being replaced by surgery if it is in the correct position. He is continued on aspirin, Plavix and Lipitor according to neurology for treatment of his stroke. 3. Hypertension. Currently on Lisinopril via the feeding tube. 4. Type 2 diabetes. Currently on Lispro insulin sliding scale. On fingersticks every 6 hours. Hypoglycemic protocol and Levemir insulin. 5. Deep vein thrombosis (DVT) prophylaxis is subcutaneous Lovenox. MTDD
[2019-05-13] MEDS ORDERED: ZOSYN 3.375 GM VIAL (J2543) As Ordered ONE (13:48)
[2019-05-13] MEDS ORDERED: BUPIVACAINE HCL 0.25% 30 ML VIAL As Ordered ONE (14:05)
[2019-05-13] MEDS ORDERED: LIDOCAINE 1% SDV INJ 30 ML VIAL As Ordered ONE (14:05)
--- NOTE | 2019-05-13 14:31 | IPNPDOC ---
Text Note Date of Service The patient was seen on 05/13/19. NOTE Patient had his PEG tube inadvertently pulled out yesterday. I came in and place it back through the original exit site an 18F gastrostomy tube after making suree that he did not have a free intraperitoneal air on abdominal xray. I had a gastrograffin study done today before using it to make sure that the tube was in the stomach and it turns out that this wasnt on the tube study. Patient on exam remain stable, mildly tender at the tube site but no gross peritoneal signs, no bleeding or drainage at the tube site. WBC today is 10.4 which is same as yesterday Impression: dislodged freshly placed feeding tube Plans: Patient will be brought to the OR for diagnostic laparoscopy. As I explained to his , the main concern at this time is whether the hole from the stomach is leaking contents in his abdomen and if it is it needs to be fixed. We will also place a new feeding tube either through the same stomach hole or through the different area. Consent obtained from the . Patient will be given zosyn. VS,Fishbone, I+O VS, Fishbone, I+O Laboratory Tests 05/13/19 09:38 Red Blood Count 4.31, Mean Corpuscular Volume 88.2, Mean Corpuscular Hemoglobin 29.2, Mean Corpuscular Hemoglobin Concent 33.2, Red Cell Distribution Width 11.5, Neutrophils (%) (Auto) 71.2 H, Lymphocytes (%) (Auto) 17.2 L, Monocytes (%) (Auto) 9.4 H, Eosinophils (%) (Auto) 1.3, Basophils (%) (Auto) 0.4, Neutrophils # (Auto) 7.4, Lymphocytes # (Auto) 1.8, Monocytes # (Auto) 1.0 H, Eosinophils # (Auto) 0.1, Basophils # (Auto) 0.0, Calcium Level 8.5 L Vital Signs Date Time Temp Pulse Resp B/P (MAP) Pulse Ox O2 Delivery O2 Flow Rate FiO2 05/13/19 13:25 97.9 65 20 143/65 (91) 95 I&O- Last 24 Hours up to 6 AM 05/13/19 06:00 Intake Total 1475 ml Output Total 2000 ml Balance -525 ml EREN ROSENBERG MD May 13, 2019 14:31
[2019-05-13] MEDS: ATORVASTATIN 20 MG TAB GT SCH (14:50)
[2019-05-13] MEDS: LISINOPRIL 20 MG TAB GT SCH (14:50)
[2019-05-13] MEDS: LANSOPRAZOLE SUSPENSION 30 MG/10 ML ORAL SYRINGE (FIRST-LANSOPRAZOLE) PEG SCH ×2 (14:51→22:00)
[2019-05-13] MEDS: guaiFENesin SYRUP 200 MG/10 ML UDC GT SCH ×2 (14:51→23:01)
[2019-05-13] MEDS: ASPIRIN 81 MG CHEW TABLET PEG SCH (14:51)
[2019-05-13] MEDS: ENOXAPARIN 40 MG/0.4 ML SYRINGE (J1650) SC SCH (14:52)
[2019-05-13] MEDS: CLOPIDOGREL 75 MG TAB PO SCH (14:52)
[2019-05-13] MEDS ORDERED: PIPERACILLIN/TAZOBACTAM SOD 3.375 GM in D5W MINI-BAG PLUS 50 ML IV ONE (15:30)
[2019-05-13 17:00] VITALS: BP 142/84
--- NOTE | 2019-05-13 17:29 | REP ---
FLUOROSCOPIC GUIDANCE FOR FEEDING TUBE CHECK The procedure was performed under the personal supervision of Dr. Velázquez. Approximately 15 ml of a 50 50 solution of Gastrografin and water was instilled into the feeding tube. Contrast appears to be intraperitoneal. There is no contrast seen in the stomach. Impression: Contrast appears to be intraperitoneal. There is no contrast seen in the stomach. Electronically Signed by JULIO CESAR Doyle 05/13/2019 09:45 A Electronically Signed by Yash Velázquez MD 05/13/2019 05:21 P
[2019-05-13 18:00] VITALS: BP 142/61
[2019-05-13 20:00] VITALS: BP 127/60
[2019-05-13 21:01] VITALS: BP 116/59
[2019-05-13] MEDS: traZODone 50 MG TAB GT SCH (23:00)
[2019-05-13] MEDS: FLUoxetine 20 MG CAP GT SCH (23:00)
[2019-05-14] MEDS: LEVEMIR (INSULIN DETEMIR) 1 UNITS/0.01ML SC SCH (00:26)
[2019-05-14] MEDS: HumaLOG INSULIN (NovoLOG) PER UNIT SC SCH ×4 (00:27→18:13)
[2019-05-14 01:02] VITALS: BP 116/60
[2019-05-14 04:00] VITALS: BP 112/54
[2019-05-14] MEDS: LevoFLOXacin 750 MG TABLET GT SCH (06:26)
[2019-05-14] MEDS: D5W/0.45% SODIUM CHLORIDE 1,000 ML IV SCH (06:30)
[2019-05-14 08:00] VITALS: BP 161/76
[2019-05-14] MEDS: POLYVINYL ALCOHOL OPHTH SOLN 15 ML(LIQUITEARS) OU SCH ×4 (09:00→20:29)
[2019-05-14 09:19] LABS: BASO % 0.1 % (0.0-1.0); EOS % 0.1 % (0.0-3.0); HEMATOCRIT 32.3 % (42.0-52.0); HEMOGLOBIN 10.9 g/dl (13.5-17.5); LYMPH # 1.4 10^3/uL (1.5-5.0); LYMPH % 14.8 % (24.0-44.0); MEAN CORPUSCULAR HEMOGLOBIN 30.1 pg (27.0-33.0); MEAN CORPUSCULAR HGB CONC 33.7 g/dl (32.0-36.5); MEAN CORPUSCULAR VOLUME 89.2 fl (80.0-96.0); MONO # 0.8 10^3/uL (0.0-0.8); MONO % 8.2 % (0.0-5.0); NEUTROPHILS # 7.3 10^3/uL (1.5-8.5); NEUTROPHILS % 76.2 % (36.0-66.0); PLATELET COUNT, AUTOMATED 438 10^3/uL (150-450); RED BLOOD COUNT 3.62 10^6/uL (4.30-6.10); WHITE BLOOD COUNT 9.6 10^3/uL (4.0-10.0)
[2019-05-14 09:39] LABS: BLOOD UREA NITROGEN 12 MG/DL (7-18); CALCIUM LEVEL 8.4 MG/DL (8.8-10.2); CARBON DIOXIDE LEVEL 27 MEQ/L (21-32); CHLORIDE LEVEL 102 MEQ/L (98-107); GLOMERULAR FILTRATION RATE > 60.0 (>49); GLUCOSE, FASTING 175 MG/DL (70-100); SODIUM LEVEL 137 MEQ/L (136-145)
[2019-05-14] MEDS: ASPIRIN 81 MG CHEW TABLET PEG SCH (09:44)
[2019-05-14] MEDS: ENOXAPARIN 40 MG/0.4 ML SYRINGE (J1650) SC SCH (09:44)
[2019-05-14] MEDS: guaiFENesin SYRUP 200 MG/10 ML UDC GT SCH ×2 (09:44→20:28)
[2019-05-14] MEDS: LANSOPRAZOLE SUSPENSION 30 MG/10 ML ORAL SYRINGE (FIRST-LANSOPRAZOLE) PEG SCH ×2 (09:44→20:28)
[2019-05-14] MEDS: PROPRANOLOL 20 MG/5 ML PO SCH ×3 (09:45→20:28)
[2019-05-14] MEDS: CLOPIDOGREL 75 MG TAB PO SCH (09:45)
[2019-05-14] MEDS: ATORVASTATIN 20 MG TAB GT SCH (09:45)
[2019-05-14] MEDS: DOXAZOSIN MESYLATE 1 MG TAB GT SCH (09:46)
[2019-05-14] MEDS: LISINOPRIL 20 MG TAB GT SCH (09:46)
[2019-05-14 12:00] VITALS: BP 100/57
[2019-05-14 14:00] VITALS: BP 138/63
--- NOTE | 2019-05-14 14:06 | ROOPDOC ---
[facility] Report Of Operation Report of Operation DATE OF PROCEDURE: 05/13/19 PREPROCEDURE DIAGNOSES: dislodged feeding tube (7 day old). POSTPROCEDURE DIAGNOSES: dislodged feeding tube. PROCEDURE: Diagnostic Laparoscopy, Uppe GI endoscopy, placement of new Percutaneous gastrostomy tube SURGEON: Shakir Neville MD DIRECTOR OUTPATIENT SERVICES: Jay Stephens MD ANESTHESIA: General Anesthesia. ESTIMATED BLOOD LOSS: Approximately 10 mL. COMPLICATIONS: none. PROCEDURE NOTE: The stomach fell away from the abdominal wall but no leakage occurred. This was brought back up in apposition to the abdominal wall with upper endoscopy insufflation. 2 t-fasteners placed to secure the stomach to the abdominal wall prior to replacing the gastrostomy tube at the same gastrotomy opening. DESCRIPTION OF PROCEDURE: Patient was given a dose of Zosyn 3.375 g IV preoperatively for possibility of a intra-abdominal leakage from the gastrostomy hole. Consent was obtained through a telephone conversation with his also his son was listing on the telephone conversation with us. He was brought to the operating room placed supine on the table. Compression boots were placed on both lower extremities for DVT prophylaxis. Gen. endotracheal anesthesia was started he has an indwelling Estrada catheter. The previously placed gastrostomy tube was removed at the bedside. His abdomen was widely prepped and draped in usual sterile fashion. We paused for a surgical timeout using both pre-incision safety checklist to verify correct patient, procedure site and additional clinical information prior to beginning the procedure I started the procedure by making an incision over the right upper quadrant area to accommodate a Veress needle. This was placed intra-abdominally confirmed dictating drop technique. CO2 insufflation started to pressure 15 mmHg. Using the same incision a 5 mm optical port was placed under direct vision of laparoscope. I used a 5 mm 30 laparoscope for the procedure. A second port was then placed just above the umbilicus under direct vision. The gastrotomy from the previously placed PEG tube was visualized. There is a small omental covering the area. There is no evidence of any leakage from this hole. There was no active bleeding. At this point I asked Dr. Cannon, and performed upper endoscopy. I lowered the intra-abdominal pressure to 10 mmHg to allow the stomach to expand close to the abdominal wall. He was placed in slight reverse Trendelenburg position. With transillumination the abdominal wall where the s tomach abuts is identified. I temporarily discontinued the laparoscopy and decompressed the abdomen. Under endoscopic guidance 2 T-fasteners were placed to center on the previous gastrotomy and secured to the abdominal wall. We opened up a 20 [place] push percutaneously placed endoscopy get. The location of the previous gastrotomy was identified with the needle directed from the abdominal wall. Guidewire was placed and retrieved endoscopically through the mouth. The 20 [place] gastrostomy tube was then placed in a modified Seldinger Seldinger technique and pulled out through the stomach and abdominal wall. This is a 3 cm. This was secured to the abdominal wall and assembled in place. Dr. Cannon came back in and visualized the bumper which was loose on the inside part of the stomach and no bleeding noted. There was a small amount of bleeding that I noted in the laparoscopic port. Thus a resume laparoscopy. The abdomen was insufflated to about 10 mmHg. There is a small bleeding at the omentum close to the stomach which was cauterized. The stomach is noted to be tented up towards the abdominal wall. Once hemostasis was achieved the abdomen was deflated, all ports removed. The 5 mm ports were closed with 4-0 Monocryl in subcuticular fashion Dermabond was then used for dressing. Betadine was placed at the gastrostomy exit site and a dry gauze dressing placed. The previous gastrostomy site up on the epigastric area was covered with dry gauze. Patient tolerated the procedure well was promptly extubated and brought to the recovery room in a stable condition. SHAKIR NEVILLE MD May 14, 2019 14:06
[2019-05-14 20:00] VITALS: BP 109/57
[2019-05-14] MEDS: FLUoxetine 20 MG CAP GT SCH (20:28)
[2019-05-14] MEDS: traZODone 50 MG TAB GT SCH (20:28)
[2019-05-15] MEDS: LEVEMIR (INSULIN DETEMIR) 1 UNITS/0.01ML SC SCH (00:46)
[2019-05-15] MEDS: HumaLOG INSULIN (NovoLOG) PER UNIT SC SCH ×4 (00:46→17:56)
[2019-05-15 04:00] VITALS: BP 141/65
[2019-05-15] MEDS: LevoFLOXacin 750 MG TABLET GT SCH (06:02)
--- NOTE | 2019-05-15 07:48 | IPNPDOC ---
Date Seen The patient was seen on 05/15/19. Progress Note SUBJECTIVE: Mitts on as pt tries to pull his jane and feeding tube. asleep,but awakened easily. able to answer to his name and says "I'm alright." denies sob, n/v,chills. PHYSICAL EXAMINATION: VITAL SIGNS: pls see below GENERAL: awakens to his name. mitts on both hands, No respiratory distress. No use of accessory respiratory muscles. Anicteric. No jaundice. LUNGS: Clear to auscultation. No wheezing, rales or rhonchi. HEART: S1, S2. Sinus rhythm. No murmurs, rubs or gallops. ABDOMEN: Soft, nontender, nondistended. Positive bowel sounds times four quadrants. No rebound or guarding. Feeding tube in place.jane NEUROLOGIC: : Left facial drooping. Able to squeeze hands. Continues to have some aphasia and left facial field loss. Strength is 4 out of 5 in the left upper and lower extremities. 5/5 in right lower extremity. LABORATORY DATA: HOSPITAL MEDICATIONS: - Lisinopril - trazodone - Roxanol - Ativan - Cardura - Levemir - Prozac - lansoprazole - propranolol - insulin sliding scale - trazodone - Levaquin - Lovenox - aspirin - Lipitor - Plavix - Robitussin - artificial tears - Tylenol suspension - hypoglycemic protocol ASSESSMENT AND PLAN: This is a 63-year-old male with hypertension and diabetes who was transferred to [facility] from [facility] where he presented with an acute ischemic bilateral thalamic, right occipital, right cerebellar stroke on 04/26/2019 when he was driving erratically. The patient had an admitting blood pressure of 200 and was started on aspirin and Plavix. Due to dysphagia, the patient underwent feeding tube placement on 05/06/2019. Bubble study echo showed no intraatrial shunting, ejection fraction of 65 to 70%. He continued to have persistent dysarthria and disorientation and left sided hemianopia and left sided hemiparesis. The patient is transferred to acute rehabilitation unit for further rehabilitation. Since he had been at rehabilitation, the patient had malfunctioning feeding tube. CURRENT ACTIVE ISSUES: 1. Feeding tube, which was replaced by general surgery, Dr. Neville, able to flush and aspirate but not clearly bilious. Gastrografin study was done to st udy the placement of the gastrostomy with fluoroscopy. Abdominal binding to protect the feeding tube from the patient grabbing this.IV fluids discontinued since tube feedings resumed. mitts to prevent pt from pulling feeding tube. 2. CVA, bilateral thalamic, right occipital, right cerebellar secondary to bilateral vertebral, basal, intracranial and extracranial artery disease in the setting of prior history of smoking, diabetes and hypertension. The patient has exhibited significant confusion and has pulled his feeding tube, which is now being replaced by surgery if it is in the correct position. He is continued on aspirin, Plavix and Lipitor according to neurology for treatment of his stroke. 3. Hypertension. Currently on Lisinopril via the feeding tube. 4. Type 2 diabetes. Currently on Lispro insulin sliding scale. On fingersticks every 6 hours. Hypoglycemic protocol and Levemir insulin. 5. Deep vein thrombosis (DVT) prophylaxis is subcutaneous Lovenox. 6. encephalopathy due to CVA, pt has mitts on due to attempts to pull on his foleyand feeding tube. VS, I&O, 24H, Fishbone Vital Signs/I&O Vital Signs Date Time Temp Pulse Resp B/P (MAP) Pulse Ox O2 Delivery O2 Flow Rate FiO2 05/15/19 04:00 99.1 67 18 141/65 (90) 94 I&O- Last 24 Hours up to 6 AM 05/15/19 06:00 Intake Total 1950 ml Output Total 1275 ml Balance 675 ml Laboratory Data 24H LABS Laboratory Tests 2 05/14/19 08:46: Immature Granulocyte % (Auto) 0.6, White Blood Count 9.6, Red Blood Count 3.62L, Hemoglobin 10.9L, Hematocrit 32.3L, Mean Corpuscular Volume 89.2, Mean Corpuscular Hemoglobin 30.1, Mean Corpuscular Hemoglobin Concent 33.7, Red Cell Distribution Width 11.5, Platelet Count 438, Neutrophils (%) (Auto) 76.2H, Lymphocytes (%) (Auto) 14.8L, Monocytes (%) (Auto) 8.2H, Eosinophils (%) (Auto) 0.1, Basophils (%) (Auto) 0.1, Neutrophils # (Auto) 7.3, Lymphocytes # (Auto) 1.4L, Monocytes # (Auto) 0.8, Eosinophils # (Auto) 0.0, Basophils # (Auto) 0.0, Nucleated Red Blood Cells % (auto) 0.0, Anion Gap 8, Glomerular Filtration Rate > 60.0, Blood Urea Nitrogen 12, Creatinine 0.60L, Sodium Level 137, Potassium Level 4.0, Chloride Level 102, Carbon Dioxide Level 27, Calcium Level 8.4L 05/14/19 12:03: Bedside Glucose (Misc Panel) 118H 05/14/19 17:28: Bedside Glucose (Misc Panel) 155H 05/15/19 00:31: Bedside Glucose (Misc Panel) 163H 05/15/19 05:48: Bedside Glucose (Misc Panel) 155H CBC/BMP Laboratory Tests 05/14/19 08:46 Red Blood Count 3.62 L, Mean Corpuscular Volume 89.2, Mean Corpuscular Hemoglobin 30.1, Mean Corpuscular Hemoglobin Concent 33.7, Red Cell Distribution Width 11.5, Neutrophils (%) (Auto) 76.2 H, Lymphocytes (%) (Auto) 14.8 L, Monocytes (%) (Auto) 8.2 H, Eosinophils (%) (Auto) 0.1, Basophils (%) (Auto) 0.1, Neutrophils # (Auto) 7.3, Lymphocytes # (Auto) 1.4 L, Monocytes # (Auto) 0.8, Eosinophils # (Auto) 0.0, Basophils # (Auto) 0.0, Calcium Level 8.4 L VIRI DECKER MD May 15, 2019 07:31
[2019-05-15] MEDS: guaiFENesin SYRUP 200 MG/10 ML UDC GT SCH ×2 (09:58→20:58)
[2019-05-15] MEDS: ENOXAPARIN 40 MG/0.4 ML SYRINGE (J1650) SC SCH (09:58)
[2019-05-15] MEDS: CLOPIDOGREL 75 MG TAB PO SCH (09:59)
[2019-05-15] MEDS: ASPIRIN 81 MG CHEW TABLET PEG SCH (09:59)
[2019-05-15] MEDS: PROPRANOLOL 20 MG/5 ML PO SCH ×3 (09:59→20:58)
[2019-05-15] MEDS: LANSOPRAZOLE SUSPENSION 30 MG/10 ML ORAL SYRINGE (FIRST-LANSOPRAZOLE) PEG SCH ×2 (09:59→20:58)
[2019-05-15] MEDS: ATORVASTATIN 20 MG TAB GT SCH (10:00)
[2019-05-15] MEDS: DOXAZOSIN MESYLATE 1 MG TAB GT SCH (10:00)
[2019-05-15] MEDS: LISINOPRIL 20 MG TAB GT SCH (10:01)
[2019-05-15] MEDS: POLYVINYL ALCOHOL OPHTH SOLN 15 ML(LIQUITEARS) OU SCH ×4 (10:01→20:59)
[2019-05-15] MEDS: ACETAMINOPHEN 325 MG/10.15 ML UDC GT PRN (10:03)
[2019-05-15 14:00] VITALS: BP 112/57
[2019-05-15] MEDS: GLY OXIDE SSP SCH ×2 (18:21→20:59)
[2019-05-15] MEDS: traZODone 50 MG TAB GT SCH (20:57)
[2019-05-15] MEDS: FLUoxetine 20 MG CAP GT SCH (20:57)
[2019-05-15 22:00] VITALS: BP 128/62
[2019-05-16] MEDS: LEVEMIR (INSULIN DETEMIR) 1 UNITS/0.01ML SC SCH (00:10)
[2019-05-16] MEDS: HumaLOG INSULIN (NovoLOG) PER UNIT SC SCH ×4 (00:11→17:20)
[2019-05-16] MEDS: LevoFLOXacin 750 MG TABLET GT SCH (05:54)
[2019-05-16 06:00] VITALS: BP 192/90
[2019-05-16] MEDS: LISINOPRIL 20 MG TAB GT SCH (06:04)
[2019-05-16] MEDS: PROPRANOLOL 20 MG/5 ML PO SCH ×3 (06:04→21:48)
[2019-05-16 06:49] VITALS: BP 190/82
[2019-05-16 06:51] LABS: HEMATOCRIT 35.4 % (42.0-52.0); HEMOGLOBIN 11.7 g/dl (13.5-17.5); MEAN CORPUSCULAR HEMOGLOBIN 29.8 pg (27.0-33.0); MEAN CORPUSCULAR HGB CONC 33.1 g/dl (32.0-36.5); MEAN CORPUSCULAR VOLUME 90.1 fl (80.0-96.0); PLATELET COUNT, AUTOMATED 441 10^3/uL (150-450); RED BLOOD COUNT 3.93 10^6/uL (4.30-6.10)
[2019-05-16] MEDS: GLY OXIDE SSP SCH ×4 (08:21→21:48)
[2019-05-16] MEDS: ATORVASTATIN 20 MG TAB GT SCH (08:21)
[2019-05-16] MEDS: CLOPIDOGREL 75 MG TAB PO SCH (08:22)
[2019-05-16] MEDS: ENOXAPARIN 40 MG/0.4 ML SYRINGE (J1650) SC SCH (08:22)
[2019-05-16] MEDS: POLYVINYL ALCOHOL OPHTH SOLN 15 ML(LIQUITEARS) OU SCH ×4 (08:22→21:49)
[2019-05-16] MEDS: DOXAZOSIN MESYLATE 1 MG TAB GT SCH (08:22)
[2019-05-16] MEDS: guaiFENesin SYRUP 200 MG/10 ML UDC GT SCH ×2 (08:22→21:46)
[2019-05-16] MEDS: LANSOPRAZOLE SUSPENSION 30 MG/10 ML ORAL SYRINGE (FIRST-LANSOPRAZOLE) PEG SCH ×2 (08:22→21:49)
[2019-05-16] MEDS: ASPIRIN 81 MG CHEW TABLET PEG SCH (08:22)
[2019-05-16] MEDS: **hydrALAZINE** 10 MG TAB PO SCH ×3 (09:00→21:00)
[2019-05-16 09:13] VITALS: BP 167/64
[2019-05-16 10:15] VITALS: BP 111/58
--- NOTE | 2019-05-16 10:34 | IPNPDOC ---
Text Note Date of Service The patient was seen on 05/16/19. NOTE Patient seen sitting up on the chair with the sitter at the bedside. Looks co mfortable. He answers questions appropriately. Denies any abdominal discomfort. Site of the gastrostomy tube examined looks to be clean without any drainage. Previous gastrostomy site appears to be healing accordingly. He is to percutaneous fasteners to keep the stomach adhered to the abdominal wall in case he pulse the gastrostomy tube again. Plan: will d/c fasteners at 10 days after placement (05/23/19) VS,Fishbone, I+O VS, Fishbone, I+O Laboratory Tests 05/16/19 06:23 Red Blood Count 3.93 L, Mean Corpuscular Volume 90.1, Mean Corpuscular Hemo globin 29.8, Mean Corpuscular Hemoglobin Concent 33.1, Red Cell Distribution Width 11.5 Vital Signs Date Time Temp Pulse Resp B/P (MAP) Pulse Ox O2 Delivery O2 Flow Rate FiO2 05/16/19 10:15 111/58 (75) 05/16/19 06:04 71 05/16/19 06:00 98.5 18 95 l I&O- Last 24 Hours up to 6 AM 05/16/19 05:59 Intake Total 1865 ml Output Total 1000 ml Balance 865 ml EREN ROSENBERG MD May 16, 2019 10:34
[2019-05-16 14:00] VITALS: BP 105/58
--- NOTE | 2019-05-16 14:24 | IPNPDOC ---
PM&R Progress Note DATE OF SERVICE: May 13, 2019 Director Bioinformatics Progress Note Subjective: Patient pulled PEG yesterday, surgery replaced it at bedside, patient appearing calm and able to follow commands. REVIEW OF SYSTEMS: The following is a completed review of systems and has been reviewed. Review of systems otherwise unremarkable. PAIN: Patient self reports no pain EYES: +visual deficit EARS, NOSE, & THROAT:+dysphagia CARDIOVASCULAR: Denies chest pain or palpitations PULMONARY: Denies shortness of breath GASTROINTESTINAL: Denies constipation/diarrhea GENITOURINARY: +urinary retention MUSCULOSKELETAL: no joint pain/deformities NEUROLOGICAL:+stroke HEMATOLOGICAL: no easy bruising SKIN: PeG site PSYCHIATRIC: +confused All other review of systems found to be negative. PHYSICAL EXAMINATION: VITAL SIGNS: Please see below. GENERAL: Pleasant and cooperative. No acute distress. HEENT: PERRL. Extraocular movements impaired, eyes fixed inferiorly and to the right, unable to cross midline or gaze vertically, Clear conjunctiva CARDIOVASCULAR: Regular rate and rhythm. No murmurs, rubs, or gallops LUNGS: Clear to auscultation bilaterally. No wheezes. No rhonchi ABDOMEN: Soft, nontender, nondistended. Positive bowel sounds. Normal active bowel sounds +PEG NEUROLOGICAL: Alert and oriented to self only . 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 4/5 strength in left lower extremity. SKIN:no rash ASSESSMENT:63-year-old M with past medical history of HTN and DM who presents status post stroke PLAN: 1. Rehab: PT strengthen, stretch, maintain ROM bilat LE, advance gait training OT strengthen, stretch, maintain ROM bilat UE, adapt therapies for visual deficits FIELD ASSESSOR: advance diet when safe, cognitive evaluation and treat aphasia, NPO with PEG 2. 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 Cardiac: pmh HTN, c/u BP meds and adjust prn, medicine consulted to assist in management -will discuss possibility of in-house loop recorder placement with cardiology for possible cryptogenic stroke 4. Resp: encourage incentive spirometry, admission CXR +left lower lobe infiltrate, c/u Levofloxacin, Duonebs and Guaifenesin- no leukocytosis at this point, will continue to monitor 5. Endo: pmh DM, cu ISS FS q6h 6. : urinary retention with Estrada placed per [facility] urology -collect UA to r/o infection- UA negative 7. DVT ppx: Lovenox and TEDs, admission Dopplers negative 8. GI ppx: Lansoprazole BID -patient pulled his PEG 05/12/19 and replaced at bedside by surgery, Gastrografin study today showed replacement PEG not in the stomach, patient to OR later today for endoscopic replacement, concern for possible intraperitoneal leakage, surgery following and managing, patient clinically stable 9. Nutrition: PEG feeds on hold 10. Skin: turn q2h and monitor for skin break down 11. Psych: episodes of agitation, trazodone ordered prn, insomnia c/u trazodone 25mg qHS standing -c/u Propranolol 10 mg TID to assist with agitation which may have a component of dysautonomia in setting of stroke -may use Ativan IM prn agitation if trazodone does not work -avoid overstimulating and adjust environment prn 12. Dispo: tbd Allergies Coded Allergies: No Known Allergies (Unverified , 05/10/19) Vital Signs Vital Signs Date Time Temp Pulse Resp B/P (MAP) Pulse Ox O2 Delivery O2 Flow Rate FiO2 05/16/19 10:15 111/58 (75) 05/16/19 06:04 71 05/16/19 06:00 98.5 18 95 Laboratory Data CBC/BMP Laboratory Tests 05/16/19 06:23 Red Blood Count 3.93 L, Mean Corpuscular Volume 90.1, Mean Corpuscular Hemoglobin 29.8, Mean Corpuscular Hemoglobin Concent 33.1, Red Cell Distribution Width 11.5 Labs 24H Laboratory Tests 2 05/15/19 17:51: Bedside Glucose (Misc Panel) 150H 05/16/19 00:04: Bedside Glucose (Misc Panel) 167H 05/16/19 05:48: Bedside Glucose (Misc Panel) 156H 05/16/19 06:23: Nucleated Red Blood Cells % (auto) 0.0 05/16/19 12:24: Bedside Glucose (Misc Panel) 143H Current Medications Current Medications Current Medications Medications (Trade) Dose Ordered Sig/Maricruz Route PRN Reason Start Time Stop Time Status Last Admin Dose Admin Acetaminophen (Tylenol Suspension) 650 mg Q4HP PRN GT PAIN OR FEVER 05/10/19 12:45 05/15/19 10:03 Albuterol/ Ipratropium (Duoneb (Ipr 0.5mg/Alb 2.5mg)) 3 ml RBID NEB 05/11/19 08:00 05/12/19 12:31 DC 05/12/19 07:28 Artificial Tears (Akwa Tears) 2 drop QID OU 05/10/19 13:00 05/16/19 08:22 Aspirin (Aspirin Chewable) 81 mg DAILY PEG 05/11/19 09:00 05/16/19 08:22 Atorvastatin Calcium (Lipitor) 80 mg DAILY GT 05/11/19 09:00 05/16/19 08:21 Carbamide Peroxide (Debrox) 5 drop PCHS XX 05/10/19 18:30 05/14/19 18:29 Cancel Clopidogrel Bisulfate (PLAVix) 75 mg DAILY PO 05/11/19 09:00 05/16/19 08:22 Dextrose (Dextrose 50%) 25 ml ASDIRECTED PRN IV SEE LABEL COMMENTS 05/10/19 12:45 Dextrose/Sodium Chloride 1,000 ml @ 75 mls/hr [id number] IV 05/12/19 18:45 05/14/19 13:16 DC 05/14/19 06:30 Doxazosin Mesylate (Cardura) 2 mg DAILY GT 05/12/19 09:00 05/16/19 08:22 Doxazosin Mesylate (Cardura) 2 mg DAILY PO 05/11/19 09:00 05/11/19 11:43 DC 05/11/19 07:58 Enoxaparin Sodium (Lovenox) 40 mg DAILY SC 05/11/19 09:00 05/16/19 08:22 Fluoxetine HCl (PROzac) 20 mg QHS GT 05/11/19 21:00 05/15/19 20:57 Glucagon (Glucagon) 1 mg ASDIRECTED PRN SC SEE LABEL COMMENTS 05/10/19 12:45 Glucose (Glucose) 16 GM ASDIRECTED PRN PO SEE LABEL COMMENTS 05/10/19 12:45 Guaifenesin (Robitussin) 10 ml BID GT 05/11/19 09:00 05/16/19 08:22 Home Med (Med Rec Complete!) ASDIRECTED XX 05/10/19 13:30 05/10/19 13:30 DC Hydralazine HCl (Apresoline) 20 mg TID PO 05/16/19 09:00 Insulin Detemir (Levemir Insulin) 5 units DAILY@0000 [place] 05/12/19 00:00 05/16/19 00:10 Insulin Detemir (Levemir Insulin) 10 units QHS [place] 05/10/19 21:00 05/11/19 11:56 DC Insulin Human Lispro (HumaLOG INSULIN) SEE PROTOCOL TABLE AC [place] 05/10/19 17:30 05/11/19 11:46 DC 05/11/19 07:56 Insulin Human Lispro (HumaLOG INSULIN) SEE PROTOCOL TABLE Q[facility] 05/11/19 12:00 05/16/19 12:28 Insulin Human Lispro (HumaLOG INSULIN) SEE PROTOCOL TABLE QHS [place] 05/10/19 21:00 05/11/19 11:46 DC Lansoprazole (First-Lansoprazole Oral Suspension) 30 mg BID PEG 05/11/19 21:00 05/16/19 08:22 Lansoprazole (First-Lansoprazole Oral Suspension) 30 mg DAILY PEG 05/10/19 09:00 05/11/19 11:46 DC 05/11/19 07:57 Levofloxacin (Levaquin) 750 mg DAILY@06 05/11/19 10:30 05/17/19 06:01 05/16/19 05:54 Lidocaine/ Diphenhydr/Alum/ Mg/Simeth (Magic Mouthwash) 5ml AC [facility] 05/11/19 07:30 05/11/19 11:43 DC 05/11/19 07:54 Lisinopril (Prinivil) 5 mg DAILY GT 05/12/19 09:00 05/12/19 11:05 DC 05/12/19 09:31 Lisinopril (Prinivil) 5 mg DAILY PO 05/11/19 09:00 05/11/19 11:43 DC 05/11/19 07:59 Lisinopril (Prinivil) 20 mg DAILY GT 05/13/19 09:00 05/16/19 06:04 Lorazepam (Ativan) 1 mg Q6HP PRN IM AGITATION 05/12/19 09:15 Miscellaneous (Unresolved Patient Own Med Order) SEE LABEL COMMENTS DAILY XX 05/12/19 09:00 05/15/19 14:52 DC Morphine Sulfate (Roxanol) 5 mg Q2HP PRN SL PAIN 05/12/19 16:00 05/12/19 16:23 Patient Own Medication (Patient'S Own Med) SWISH AND SPIT 5 DROPS... [facility] 05/10/19 18:30 05/15/19 18:17 DC Patient Own Medication (Patient'S Own Med) SWISH AND SPIT 5 DROPS... [facility] 05/15/19 18:30 05/16/19 12:46 Propranolol HCl (Inderal Liquid) 10 mg TID PO 05/11/19 21:00 05/16/19 06:04 Trazodone HCl (Desyrel) 25 mg Q6HP PRN GT AGITATION 05/11/19 11:45 05/11/19 18:36 Trazodone HCl (Desyrel) 25 mg Q6HP PRN PO AGITATION 05/10/19 12:45 05/11/19 11:43 DC Trazodone HCl (Desyrel) 25 mg QHS GT 05/11/19 21:00 05/12/19 09:07 DC 05/11/19 20:53 Trazodone HCl (Desyrel) 25 mg QHS PO 05/10/19 21:00 05/11/19 11:43 DC 05/10/19 20:39 Trazodone HCl (Desyrel) 50 mg QHS GT 05/12/19 21:00 05/15/19 20:57 SHARAN HOOVER MD May 16, 2019 14:24
--- NOTE | 2019-05-16 14:28 | IPNPDOC ---
PM&R Progress Note DATE OF SERVICE: May 16, 2019 Ball Shagger Progress Note Subjective: Patient seen this morning, reports no abdominal pain, able to follow commands and participate in therapy. REVIEW OF SYSTEMS: The following is a completed review of systems and has been reviewed. Review of systems otherwise unremarkable. PAIN: Patient self reports no pain EYES: +visual deficit EARS, NOSE, & THROAT:+dysphagia CARDIOVASCULAR: Denies chest pain or palpitations PULMONARY: Denies shortness of breath GASTROINTESTINAL: Denies constipation/diarrhea GENITOURINARY: +urinary retention MUSCULOSKELETAL: no joint pain/deformities NEUROLOGICAL:+stroke HEMATOLOGICAL: no easy bruising SKIN: PeG site PSYCHIATRIC: +confused All other review of systems found to be negative. PHYSICAL EXAMINATION: VITAL SIGNS: Please see below. GENERAL: Pleasant and cooperative. No acute distress. HEENT: PERRL. Extraocular movements impaired, eyes fixed inferiorly and to the right, able to cross midline, Clear conjunctiva CARDIOVASCULAR: Regular rate and rhythm. No murmurs, rubs, or gallops LUNGS: Clear to auscultation bilaterally. No wheezes. No rhonchi ABDOMEN: Soft, nontender, nondistended. Positive bowel sounds. Normal active bowel sounds +PEG NEUROLOGICAL: Alert and oriented to self only . 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 4/5 strength in left lower extremity. SKIN:no rash ASSESSMENT:63-year-old M with past medical history of HTN and DM who presents status post stroke PLAN: 1. Rehab: PT strengthen, stretch, maintain ROM bilat LE, advance gait training, ambulating with hand-held assist OT strengthen, stretch, maintain ROM bilat UE, adapt therapies for visual deficits CALCULATION REVIEWER: advance diet when safe, cognitive evaluation and treat aphasia, NPO with PEG 2. 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 Cardiac: pmh HTN, c/u BP meds and adjust prn, medicine consulted to assist in management -added hyrdralazine -will discuss possibility of in-house loop recorder placement with cardiology for possible cryptogenic stroke 4. Resp: encourage incentive spirometry, admission CXR +left lower lobe infiltra te, c/u Levofloxacin, Duonebs and Guaifenesin- no leukocytosis at this point, will continue to monitor 5. Endo: pmh DM, cu ISS FS q6h 6. : urinary retention with Estrada placed per [facility] urology, will d/c today and trial [place] catheter -collect UA to r/o infection- UA negative 7. DVT ppx: Lovenox and TEDs, admission Dopplers negative 8. GI ppx: Lansoprazole BID -patient pulled his PEG 05/12/19 and replaced at bedside by surgery, then repalced in OR on 05/13/19, mild leukocytosis today, abdomen soft, afebrile, will recheck cbc tomorrow, will continue to monitor for peritonitis 9. Nutrition: PEG 10. Skin: turn q2h and monitor for skin break down 11. Psych: episodes of agitation, trazodone ordered prn, insomnia c/u trazodone 25mg qHS standing -c/u Propranolol 10 mg TID to assist with agitation which may have a component of dysautonomia in setting of stroke -may use Ativan IM prn agitation if trazodone does not work -avoid overstimulating and adjust environment prn 12. Dispo: tbd Allergies Coded Allergies: No Known Allergies (Unverified , 05/10/19) Vital Signs Vital Signs Date Time Temp Pulse Resp B/P (MAP) Pulse Ox O2 Delivery O2 Flow Rate FiO2 05/16/19 10:15 111/58 (75) 05/16/19 06:04 71 05/16/19 06:00 98.5 18 95 Laboratory Data CBC/BMP Laboratory Tests 05/16/19 06:23 Red Blood Count 3.93 L, Mean Corpuscular Volume 90.1, Mean Corpuscular Hemoglobin 29.8, Mean Corpuscular Hemoglobin Concent 33.1, Red Cell Distribution Width 11.5 Labs 24H Laboratory Tests 2 05/15/19 17:51: Bedside Glucose (Misc Panel) 150H 05/16/19 00:04: Bedside Glucose (Misc Panel) 167H 05/16/19 05:48: Bedside Glucose (Misc Panel) 156H 05/16/19 06:23: Nucleated Red Blood Cells % (auto) 0.0 05/16/19 12:24: Bedside Glucose (Misc Panel) 143H Current Medications Current Medications Current Medications Medications (Trade) Dose Ordered Sig/Maricruz Route PRN Reason Start Time Stop Time Status Last Admin Dose Admin Acetaminophen (Tylenol Suspension) 650 mg Q4HP PRN GT PAIN OR FEVER 05/10/19 12:45 05/15/19 10:03 Albuterol/ Ipratropium (Duoneb (Ipr 0.5mg/Alb 2.5mg)) 3 ml RBID NEB 05/11/19 08:00 05/12/19 12:31 DC 05/12/19 07:28 Artificial Tears (Akwa Tears) 2 drop QID OU 05/10/19 13:00 05/16/19 08:22 Aspirin (Aspirin Chewable) 81 mg DAILY PEG 05/11/19 09:00 05/16/19 08:22 Atorvastatin Calcium (Lipitor) 80 mg DAILY GT 05/11/19 09:00 05/16/19 08:21 Carbamide Peroxide (Debrox) 5 drop PCHS XX 05/10/19 18:30 05/14/19 18:29 Cancel Clopidogrel Bisulfate (PLAVix) 75 mg DAILY PO 05/11/19 09:00 05/16/19 08:22 Dextrose (Dextrose 50%) 25 ml ASDIRECTED PRN IV SEE LABEL COMMENTS 05/10/19 12:45 Dextrose/Sodium Chloride 1,000 ml @ 75 mls/hr [id number] IV 05/12/19 18:45 05/14/19 13:16 DC 05/14/19 06:30 Doxazosin Mesylate (Cardura) 2 mg DAILY GT 05/12/19 09:00 05/16/19 08:22 Doxazosin Mesylate (Cardura) 2 mg DAILY PO 05/11/19 09:00 05/11/19 11:43 DC 05/11/19 07:58 Enoxaparin Sodium (Lovenox) 40 mg DAILY SC 05/11/19 09:00 05/16/19 08:22 Fluoxetine HCl (PROzac) 20 mg QHS GT 05/11/19 21:00 05/15/19 20:57 Glucagon (Glucagon) 1 mg ASDIRECTED PRN SC SEE LABEL COMMENTS 05/10/19 12:45 Glucose (Glucose) 16 GM ASDIRECTED PRN PO SEE LABEL COMMENTS 05/10/19 12:45 Guaifenesin (Robitussin) 10 ml BID GT 05/11/19 09:00 05/16/19 08:22 Home Med (Med Rec Complete!) ASDIRECTED XX 05/10/19 13:30 05/10/19 13:30 DC Hydralazine HCl (Apresoline) 20 mg TID PO 05/16/19 09:00 Insulin Detemir (Levemir Insulin) 5 units DAILY@0000 [place] 05/12/19 00:00 05/16/19 00:10 Insulin Detemir (Levemir Insulin) 10 units QHS [place] 05/10/19 21:00 05/11/19 11:56 DC Insulin Human Lispro (HumaLOG INSULIN) SEE PROTOCOL TABLE AC [place] 05/10/19 17:30 05/11/19 11:46 DC 05/11/19 07:56 Insulin Human Lispro (HumaLOG INSULIN) SEE PROTOCOL TABLE Q6[facility] 05/11/19 12:00 05/16/19 12:28 Insulin Human Lispro (HumaLOG [facility]ULIN) [facility] 05/10/[facility] 21:00 05/11/19 11:46 DC Lansoprazole (First-Lansoprazole Oral Suspension) 30 mg BID PEG 05/11/19 21:00 05/16/19 08:22 Lansoprazole (First-Lansoprazole Oral Suspension) 30 mg DAILY PEG 05/10/19 09:00 05/11/19 11:46 DC 05/11/19 07:57 Levofloxacin (Levaquin) 750 mg DAILY@06 05/11/19 10:30 05/17/19 06:01 05/16/19 05:54 Lidocaine/ Diphenhydr/Alum/ Mg/Simeth (Magic Mouthwash) 5ml AC [facility] 05/11/19 07:30 05/11/19 11:43 DC 05/11/19 07:54 Lisinopril (Prinivil) 5 mg DAILY GT 05/12/19 09:00 05/12/19 11:05 DC 05/12/19 09:31 Lisinopril (Prinivil) 5 mg DAILY PO 05/11/19 09:00 05/11/19 11:43 DC 05/11/19 07:59 Lisinopril (Prinivil) 20 mg DAILY GT 05/13/19 09:00 05/16/19 06:04 Lorazepam (Ativan) 1 mg Q6HP PRN IM AGITATION 05/12/19 09:15 Miscellaneous (Unresolved Patient Own Med Order) SEE LABEL COMMENTS DAILY XX 05/12/19 09:00 05/15/19 14:52 DC Morphine Sulfate (Roxanol) 5 mg Q2HP PRN SL PAIN 05/12/19 16:00 05/12/19 16:23 Patient Own Medication (Patient'S Own Med) SWISH AND SPIT 5 DROPS... [facility] 05/10/19 18:30 05/15/19 18:17 DC Patient Own Medication (Patient'S Own Med) SWISH AND SPIT 5 DROPS... [facility] 05/15/19 18:30 05/16/19 12:46 Propranolol HCl (Inderal Liquid) 10 mg TID PO 05/11/19 21:00 05/16/19 06:04 Trazodone HCl (Desyrel) 25 mg Q6HP PRN GT AGITATION 05/11/19 11:45 05/11/19 18:36 Trazodone HCl (Desyrel) 25 mg Q6HP PRN PO AGITATION 05/10/19 12:45 05/11/19 11:43 DC Trazodone HCl (Desyrel) 25 mg QHS GT 05/11/19 21:00 05/12/19 09:07 DC 05/11/19 20:53 Trazodone HCl (Desyrel) 25 mg QHS PO 05/10/19 21:00 05/11/19 11:43 DC 05/10/19 20:39 Trazodone HCl (Desyrel) 50 mg QHS GT 05/12/19 21:00 05/15/19 20:57 SHARAN HOOVER MD May 16, 2019 14:28
[2019-05-16 20:00] VITALS: BP 129/92
[2019-05-16] MEDS: traZODone 50 MG TAB GT SCH (21:46)
[2019-05-16] MEDS: FLUoxetine 20 MG CAP GT SCH (21:46)
[2019-05-16] MEDS: ACETAMINOPHEN 325 MG/10.15 ML UDC GT PRN (21:47)
[2019-05-17] MEDS: LEVEMIR (INSULIN DETEMIR) 1 UNITS/0.01ML SC SCH
[2019-05-17] MEDS: HumaLOG INSULIN (NovoLOG) PER UNIT SC SCH ×6 (00:13→21:00)
[2019-05-17 06:11] VITALS: BP 174/81
[2019-05-17] MEDS: LevoFLOXacin 750 MG TABLET GT SCH (06:23)
[2019-05-17 07:55] LABS: BASO % 0.5 % (0.0-1.0); EOS # 0.3 10^3/uL (0.0-0.5); HEMATOCRIT 33.3 % (42.0-52.0); HEMOGLOBIN 11.1 g/dl (13.5-17.5); LYMPH # 2.3 10^3/uL (1.5-5.0); LYMPH % 28.3 % (24.0-44.0); MEAN CORPUSCULAR HGB CONC 33.3 g/dl (32.0-36.5); MEAN CORPUSCULAR VOLUME 86.9 fl (80.0-96.0); MONO # 0.7 10^3/uL (0.0-0.8); MONO % 8.7 % (0.0-5.0); NEUTROPHILS # 4.8 10^3/uL (1.5-8.5); NEUTROPHILS % 57.9 % (36.0-66.0); PLATELET COUNT, AUTOMATED 469 10^3/uL (150-450); RED BLOOD COUNT 3.83 10^6/uL (4.30-6.10); WHITE BLOOD COUNT 8.2 10^3/uL (4.0-10.0)
[2019-05-17] MEDS: LANSOPRAZOLE SUSPENSION 30 MG/10 ML ORAL SYRINGE (FIRST-LANSOPRAZOLE) PEG SCH ×2 (09:41→21:57)
[2019-05-17] MEDS: CLOPIDOGREL 75 MG TAB PO SCH (09:42)
[2019-05-17] MEDS: ASPIRIN 81 MG CHEW TABLET PEG SCH (09:42)
[2019-05-17] MEDS: guaiFENesin SYRUP 200 MG/10 ML UDC GT SCH ×2 (09:42→21:56)
[2019-05-17] MEDS: ATORVASTATIN 20 MG TAB GT SCH (09:42)
[2019-05-17] MEDS: PROPRANOLOL 20 MG/5 ML PO SCH ×3 (09:42→21:58)
[2019-05-17] MEDS: ENOXAPARIN 40 MG/0.4 ML SYRINGE (J1650) SC SCH (09:42)
[2019-05-17] MEDS: LISINOPRIL 20 MG TAB GT SCH (09:43)
[2019-05-17] MEDS: **hydrALAZINE** 10 MG TAB PO SCH ×3 (09:43→21:57)
[2019-05-17] MEDS: DOXAZOSIN MESYLATE 1 MG TAB GT SCH (09:43)
[2019-05-17] MEDS: GLY OXIDE SSP SCH ×4 (09:44→21:58)
[2019-05-17] MEDS: POLYVINYL ALCOHOL OPHTH SOLN 15 ML(LIQUITEARS) OU SCH ×4 (09:44→21:59)
--- NOTE | 2019-05-17 09:51 | REP ---
COOKIE SWALLOW The procedure was performed under the direct supervision of Dr. Velázquez. The procedure was performed with Anita Hebert from speech pathology present. 5 ml aliquots of nectar, pudding, honey and crushed pill were administered. There is no evidence of penetration or aspiration. The detailed report of this examination will be provided by speech pathology. 1.7 minutes of fluoroscopy time was utilized for this procedure. Electronically Signed by JULIO CESAR Doyle 05/16/2019 03:54 P Electronically Signed by Yash Velázquez MD 05/17/2019 09:42 A
[2019-05-17] MEDS ORDERED: GLUCOSE 4 GM CHEW TABLET PO PRN (10:30)
[2019-05-17] MEDS ORDERED: DEXTROSE 50% 50 ML SYRINGE IV PRN (10:30)
[2019-05-17] MEDS ORDERED: GLUCAGON FOR INJ 1 MG VIAL (J1610) SC PRN (10:30)
[2019-05-17 14:00] VITALS: BP 122/60
[2019-05-17 20:00] VITALS: BP 126/64
[2019-05-17] MEDS: FLUoxetine 20 MG CAP GT SCH (21:56)
[2019-05-17] MEDS: traZODone 50 MG TAB GT SCH (21:57)
[2019-05-18] VITALS (7 sets, daily range): BP systolic 148–190; BP diastolic 68–94
[2019-05-18] MEDS: LISINOPRIL 20 MG TAB GT SCH (07:01)
[2019-05-18] MEDS: PROPRANOLOL 20 MG/5 ML PO SCH ×3 (07:01→21:18)
[2019-05-18] MEDS: HumaLOG INSULIN (NovoLOG) PER UNIT SC SCH ×4 (08:48→21:00)
[2019-05-18] MEDS: **hydrALAZINE** 10 MG TAB PO SCH ×3 (08:51→21:18)
[2019-05-18] MEDS: ATORVASTATIN 20 MG TAB GT SCH (08:51)
[2019-05-18] MEDS: guaiFENesin SYRUP 200 MG/10 ML UDC GT SCH ×2 (08:51→21:19)
[2019-05-18] MEDS: DOXAZOSIN MESYLATE 1 MG TAB GT SCH (08:51)
[2019-05-18] MEDS: CLOPIDOGREL 75 MG TAB PO SCH (08:51)
[2019-05-18] MEDS: LANSOPRAZOLE SUSPENSION 30 MG/10 ML ORAL SYRINGE (FIRST-LANSOPRAZOLE) PEG SCH ×2 (08:51→21:19)
[2019-05-18] MEDS: ASPIRIN 81 MG CHEW TABLET PEG SCH (08:51)
[2019-05-18] MEDS: GLY OXIDE SSP SCH ×4 (08:52→21:19)
[2019-05-18] MEDS: ENOXAPARIN 40 MG/0.4 ML SYRINGE (J1650) SC SCH (08:52)
[2019-05-18] MEDS: POLYVINYL ALCOHOL OPHTH SOLN 15 ML(LIQUITEARS) OU SCH ×4 (08:52→21:20)
[2019-05-18] MEDS ORDERED: TAMSULOSIN 0.4 MG CAP PO SCH (10:00)
--- NOTE | 2019-05-18 18:38 | IPNPDOC ---
PM&R Progress Note DATE OF SERVICE: May 17, 2019 [employer] Progress Note Subjective: Patient seen in his room stating he was happy he could eat and was feeling well overall. REVIEW OF SYSTEMS: The following is a completed review of systems and has been reviewed. Review of systems otherwise unremarkable. PAIN: Patient self reports no pain EYES: +visual deficit EARS, NOSE, & THROAT:+dysphagia CARDIOVASCULAR: Denies chest pain or palpitations PULMONARY: Denies shortness of breath GASTROINTESTINAL: Denies constipation/diarrhea GENITOURINARY: +urinary retention MUSCULOSKELETAL: no joint pain/deformities NEUROLOGICAL:+stroke HEMATOLOGICAL: no easy bruising SKIN: PeG site PSYCHIATRIC: +confused (improving) All other review of systems found to be negative. PHYSICAL EXAMINATION: VITAL SIGNS: Please see below. GENERAL: Pleasant and cooperative. No acute distress. HEENT: PERRL. Extraocular movements impaired, eyes fixed inferiorly and to the right, able to cross midline, Clear conjunctiva CARDIOVASCULAR: Regular rate and rhythm. No murmurs, rubs, or gallops LUNGS: Clear to auscultation bilaterally. No wheezes. No rhonchi ABDOMEN: Soft, nontender, nondistended. Positive bowel sounds. Normal active bowel sounds +PEG NEUROLOGICAL: Alert and oriented to self only . 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 4/5 strength in left lower extremity. SKIN:no rash ASSESSMENT:63-year-old M with past medical history of HTN and DM who presents status post stroke PLAN: 1. 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 Cardiac: pmh HTN, c/u BP meds and adjust prn, medicine consulted to assist in management -added hyrdralazine -will discuss possibility of in-house loop recorder placement with cardiology for possible cryptogenic stroke 4. Resp: encourage incentive spirometry, admission CXR +left lower lobe infiltrate, c/u Levofloxacin, Duonebs and Guaifenesin- no leukocytosis at this point, will continue to monitor 5. Endo: pmh DM, cu ISS FS q6h 6. : urinary retention with Estrada placed per [facility] urology, will d/c today and bladder scan -collect UA to r/o infection- UA negative 7. DVT ppx: Lovenox and TEDs, admission Dopplers negative 8. GI ppx: Lansoprazole BID -patient pulled his PEG 05/12/19 and replaced at bedside by surgery, then replaced in OR on 05/13/19, mild leukocytosis resolved, abdomen soft, afebrile, will continue to monitor for peritonitis 9. Nutrition: PEG in place, however diet advanced to po 10. Skin: turn q2h and monitor for skin break down 11. Psych: episodes of agitation, trazodone ordered prn, insomnia c/u trazodone 25mg qHS standing -c/u Propranolol 10 mg TID to assist with agitation which may have a component of dysautonomia in setting of stroke -may use Ativan IM prn agitation if trazodone does not work -avoid overstimulating and adjust environment prn 12. Dispo: 06/03/19 to home with 24-7 Allergies Coded Allergies: No Known Allergies (Unverified , 05/10/19) Vital Signs Vital Signs Date Time Temp Pulse Resp B/P (MAP) Pulse Ox O2 Delivery O2 Flow Rate FiO2 05/18/19 16:16 176/68 05/18/19 16:16 65 05/18/19 14:00 98.1 18 96 Laboratory Data Labs 24H Laboratory Tests 2 05/17/19 19:46: Bedside Glucose (Misc Panel) 184H 05/18/19 07:03: Bedside Glucose (Misc Panel) 149H 05/18/19 11:57: Bedside Glucose (Misc Panel) 220H 05/18/19 17:04: Bedside Glucose (Misc Panel) 159H Current Medications Current Medications Current Medications Medications (Trade) Dose Ordered Sig/Maricruz Route PRN Reason Start Time Stop Time Status Last Admin Dose Admin Acetaminophen (Tylenol Suspension) 650 mg Q4HP PRN GT PAIN OR FEVER 05/10/19 12:45 05/16/19 21:47 Albuterol/ Ipratropium (Duoneb (Ipr 0.5mg/Alb 2.5mg)) 3 ml RBID NEB 05/11/19 08:00 05/12/19 12:31 DC 05/12/19 07:28 Artificial Tears (Akwa Tears) 2 drop QID OU 05/10/19 13:00 05/18/19 16:17 Aspirin (Aspirin Chewable) 81 mg DAILY PEG 05/11/19 09:00 05/18/19 08:51 Atorvastatin Calcium (Lipitor) 80 mg DAILY GT 05/11/19 09:00 05/18/19 08:51 Carbamide Peroxide (Debrox) 5 drop PCHS XX 05/10/19 18:30 05/14/19 18:29 Cancel Clopidogrel Bisulfate (PLAVix) 75 mg DAILY PO 05/11/19 09:00 05/18/19 08:51 Dextrose (Dextrose 50%) 25 ml ASDIRECTED PRN IV SEE LABEL COMMENTS 05/10/19 12:45 05/18/19 12:25 DC Dextrose (Dextrose 50%) 25 ml ASDIRECTED PRN IV SEE LABEL COMMENTS 05/17/19 10:30 Dextrose/Sodium Chloride 1,000 ml @ 75 mls/hr [id number] IV 05/12/19 18:45 05/14/19 13:16 DC 05/14/19 06:30 Doxazosin Mesylate (Cardura) 2 mg DAILY GT 05/12/19 09:00 05/18/19 08:51 Doxazosin Mesylate (Cardura) 2 mg DAILY PO 05/11/19 09:00 05/11/19 11:43 DC 05/11/19 07:58 Enoxaparin Sodium (Lovenox) 40 mg DAILY SC 05/11/19 09:00 05/18/19 08:52 Fluoxetine HCl (PROzac) 20 mg QHS GT 05/11/19 21:00 05/17/19 21:56 Glucagon (Glucagon) 1 mg ASDIRECTED PRN SC SEE LABEL COMMENTS 05/10/19 12:45 05/18/19 12:25 DC Glucagon (Glucagon) 1 mg ASDIRECTED PRN SC SEE LABEL COMMENTS 05/17/19 10:30 Glucose (Glucose) 16 GM ASDIRECTED PRN PO SEE LABEL COMMENTS 05/10/19 12:45 05/18/19 12:25 DC Glucose (Glucose) 16 GM ASDIRECTED PRN PO SEE LABEL COMMENTS 05/17/19 10:30 Guaifenesin (Robitussin) 10 ml BID GT 05/11/19 09:00 05/18/19 08:51 Home Med (Med Rec Complete!) ASDIRECTED XX 05/10/19 13:30 05/10/19 13:30 DC Hydralazine HCl (Apresoline) 20 mg TID PO 05/16/19 09:00 05/18/19 16:30 DC 05/18/19 16:16 Hydralazine HCl (Apresoline) 40 mg TID PO 05/18/19 21:00 Insulin Detemir (Levemir Insulin) 5 units DAILY@0000 [place] 05/12/19 00:00 05/17/19 10:31 DC 05/16/19 00:10 Insulin Detemir (Levemir Insulin) 10 units [facility] 05/10/19 21:00 05/11/19 11:56 DC Insulin Human Lispro (HumaLOG INSULIN) SEE PROTOCOL TABLE AC [place] 05/10/19 17:30 05/11/19 11:46 DC 05/11/19 07:56 Insulin Human Lispro (HumaLOG INSULIN) SEE PROTOCOL TABLE AC [place] 05/17/19 07:30 05/18/19 17:32 Insulin Human Lispro (HumaLOG INSULIN) SEE PROTOCOL TABLE Q[facility] 05/11/19 12:00 05/17/19 10:31 DC 05/17/19 06:23 Insulin Human Lis[facility] (H[facility]LOG INSULIN) [facility] 21:00 05/11/19 11:46 DC Insulin Human Lispro (HumaLOG INSULIN) [facility] 05/17/[facility] 21:00 Lansoprazole (First-Lansoprazole Oral Suspension) 30 mg BID PEG 05/11/19 21:00 05/18/19 08:51 Lansoprazole (First-Lansoprazole Oral Suspension) 30 mg DAILY PEG 05/10/19 09:00 05/11/19 11:46 DC 05/11/19 07:57 Levofloxacin (Levaquin) 750 mg DAILY@06 GT 05/11/19 10:30 05/17/19 06:01 DC 05/17/19 06:23 Lidocaine/ Diphenhydr/Alum/ Mg/Simeth (Magic Mouthwash) 5ml AC SSP 05/11/19 07:30 05/11/19 11:43 DC 05/11/19 07:54 Lisinopril (Prinivil) 5 mg DAILY GT 05/12/19 09:00 05/12/19 11:05 DC 05/12/19 09:31 Lisinopril (Prinivil) 5 mg DAILY PO 05/11/19 09:00 05/11/19 11:43 DC 05/11/19 07:59 Lisinopril (Prinivil) 20 mg DAILY GT 05/13/19 09:00 05/18/19 07:01 Lorazepam (Ativan) 1 mg Q6HP PRN IM AGITATION 05/12/19 09:15 Miscellaneous (Unresolved Patient Own Med Order) SEE LABEL COMMENTS DAILY XX 05/12/19 09:00 05/15/19 14:52 DC Morphine Sulfate (Roxanol) 5 mg Q2HP PRN SL PAIN 05/12/19 16:00 05/18/19 11:04 DC 05/12/19 16:23 Patient Own Medication (Patient'S Own Med) SWISH AND SPIT 5 DROPS... [facility] SSP 05/10/19 18:30 05/15/19 18:17 DC Patient Own Medication (Patient'S Own Med) SWISH AND SPIT 5 DROPS... [facility] SSP 05/15/19 18:30 05/18/19 17:32 Propranolol HCl (Inderal Liquid) 10 mg TID PO 05/11/19 21:00 05/18/19 16:16 Tamsulosin HCl (Flomax) 0.4 mg BID PO 05/18/19 21:00 Tamsulosin HCl (Flomax) 0.4 mg DAILY PO 05/18/19 10:00 05/18/19 12:59 DC 05/18/19 10:20 Trazodone HCl (Desyrel) 25 mg Q6HP PRN GT AGITATION 05/11/19 11:45 05/11/19 18:36 Trazodone HCl (Desyrel) 25 mg Q6HP PRN PO AGITATION 05/10/19 12:45 05/11/19 11:43 DC Trazodone HCl (Desyrel) 25 mg QHS GT 05/11/19 21:00 05/12/19 09:07 DC 05/11/19 20:53 Trazodone HCl (Desyrel) 25 mg QHS PO 05/10/19 21:00 05/11/19 11:43 DC 05/10/19 20:39 Trazodone HCl (Desyrel) 50 mg QHS GT 05/12/19 21:00 05/17/19 21:57 SHARAN HOOVER MD May 18, 2019 18:38
--- NOTE | 2019-05-18 18:39 | IPNPDOC ---
PM&R Progress Note DATE OF SERVICE: May 18, 2019 [employer] Progress Note Subjective: Patient eating well and his vision is improving. He was able to propel himself down to the gym with a little help from his . He states he is feeling ok today, denies pain. REVIEW OF SYSTEMS: The following is a completed review of systems and has been reviewed. Review of systems otherwise unremarkable. PAIN: Patient self reports no pain EYES: +visual deficit EARS, NOSE, & THROAT:+dysphagia CARDIOVASCULAR: Denies chest pain or palpitations PULMONARY: Denies shortness of breath GASTROINTESTINAL: Denies constipation/diarrhea GENITOURINARY: +urinary retention MUSCULOSKELETAL: no joint pain/deformities NEUROLOGICAL:+stroke HEMATOLOGICAL: no easy bruising SKIN: PeG site PSYCHIATRIC: +confused (improving) All other review of systems found to be negative. PHYSICAL EXAMINATION: VITAL SIGNS: Please see below. GENERAL: Pleasant and cooperative. No acute distress. HEENT: PERRL. Extraocular movements impaired, eyes fixed inferiorly and to the right, able to cross midline, Clear conjunctiva CARDIOVASCULAR: Regular rate and rhythm. No murmurs, rubs, or gallops LUNGS: Clear to auscultation bilaterally. No wheezes. No rhonchi ABDOMEN: Soft, nontender, nondistended. Positive bowel sounds. Normal active bowel sounds +PEG NEUROLOGICAL: Alert and oriented to self only . 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 4/5 strength in left lower extremity. SKIN:no rash ASSESSMENT:63-year-old M with past medical history of HTN and DM who presents status post stroke PLAN: 1. 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 Cardiac: pmh HTN, c/u BP meds and adjust prn, medicine consulted to assist in management -added hyrdralazine -will discuss possibility of in-house loop recorder placement with cardiology for possible cryptogenic stroke 4. Resp: encourage incentive spirometry, admission CXR +left lower lobe infiltrate, c/u Levofloxacin, Duonebs and Guaifenesin- no leukocytosis at this point, will continue to monitor 5. Endo: pmh DM, cu ISS FS q6h 6. : urinary retention with Estrada placed per [facility] urology, will start Flomax for urinary retention and continue bladder scan with IC -collect UA to r/o infection- UA negative 7. DVT ppx: Lovenox and TEDs, admission Dopplers negative 8. GI ppx: Lansoprazole BID -patient pulled his PEG 05/12/19 and replaced at bedside by surgery, then replaced in OR on 05/13/19, mild leukocytosis resolved, abdomen soft, afebrile, will continue to monitor for peritonitis 9. Nutrition: PEG in place, however diet advanced to po 10. Skin: turn q2h and monitor for skin break down 11. Psych: episodes of agitation, trazodone ordered prn, insomnia c/u trazodone 25mg qHS standing -c/u Propranolol 10 mg TID to assist with agitation which may have a component of dysautonomia in setting of stroke -may use Ativan IM prn agitation if trazodone does not work -avoid overstimulating and adjust environment prn 12. Dispo: 06/03/19 to home with 24-7 Allergies Coded Allergies: No Known Allergies (Unverified , 05/10/19) Vital Signs Vital Signs Date Time Temp Pulse Resp B/P (MAP) Pulse Ox O2 Delivery O2 Flow Rate FiO2 05/18/19 16:16 176/68 05/18/19 16:16 65 05/18/19 14:00 98.1 18 96 Laboratory Data Labs 24H Laboratory Tests 2 05/17/19 19:46: Bedside Glucose (Misc Panel) 184H 05/18/19 07:03: Bedside Glucose (Misc Panel) 149H 05/18/19 11:57: Bedside Glucose (Misc Panel) 220H 05/18/19 17:04: Bedside Glucose (Misc Panel) 159H Current Medications Current Medications Current Medications Medications (Trade) Dose Ordered Sig/Maricruz Route PRN Reason Start Time Stop Time Status Last Admin Dose Admin Acetaminophen (Tylenol Suspension) 650 mg Q4HP PRN GT PAIN OR FEVER 05/10/19 12:45 05/16/19 21:47 Albuterol/ Ipratropium (Duoneb (Ipr 0.5mg/Alb 2.5mg)) 3 ml RBID NEB 05/11/19 08:00 05/12/19 12:31 DC 05/12/19 07:28 Artificial Tears (Akwa Tears) 2 drop QID OU 05/10/19 13:00 05/18/19 16:17 Aspirin (Aspirin Chewable) 81 mg DAILY PEG 05/11/19 09:00 05/18/19 08:51 Atorvastatin Calcium (Lipitor) 80 mg DAILY GT 05/11/19 09:00 05/18/19 08:51 Carbamide Peroxide (Debrox) 5 drop PCHS XX 05/10/19 18:30 05/14/19 18:29 Cancel Clopidogrel Bisulfate (PLAVix) 75 mg DAILY PO 05/11/19 09:00 05/18/19 08:51 Dextrose (Dextrose 50%) 25 ml ASDIRECTED PRN IV SEE LABEL COMMENTS 05/10/19 12:45 05/18/19 12:25 DC Dextrose (Dextrose 50%) 25 ml ASDIRECTED PRN IV SEE LABEL COMMENTS 05/17/19 10:30 Dextrose/Sodium Chloride 1,000 ml @ 75 mls/hr [id number] IV 05/12/19 18:45 05/14/19 13:16 DC 05/14/19 06:30 Doxazosin Mesylate (Cardura) 2 mg DAILY GT 05/12/19 09:00 05/18/19 08:51 Doxazosin Mesylate (Cardura) 2 mg DAILY PO 05/11/19 09:00 05/11/19 11:43 DC 05/11/19 07:58 Enoxaparin Sodium (Lovenox) 40 mg DAILY SC 05/11/19 09:00 05/18/19 08:52 Fluoxetine HCl (PROzac) 20 mg QHS GT 05/11/19 21:00 05/17/19 21:56 Glucagon (Glucagon) 1 mg ASDIRECTED PRN SC SEE LABEL COMMENTS 05/10/19 12:45 05/18/19 12:25 DC Glucagon (Glucagon) 1 mg ASDIRECTED PRN SC SEE LABEL COMMENTS 05/17/19 10:30 Glucose (Glucose) 16 GM ASDIRECTED PRN PO SEE LABEL COMMENTS 05/10/19 12:45 05/18/19 12:25 DC Glucose (Glucose) 16 GM ASDIRECTED PRN PO SEE LABEL COMMENTS 05/17/19 10:30 Guaifenesin (Robitussin) 10 ml BID GT 05/11/19 09:00 05/18/19 08:51 Home Med (Med Rec Complete!) ASDIRECTED XX 05/10/19 13:30 05/10/19 13:30 DC Hydralazine HCl (Apresoline) 20 mg TID PO 05/16/19 09:00 05/18/19 16:30 DC 05/18/19 16:16 Hydralazine HCl (Apresoline) 40 mg TID PO 05/18/19 21:00 Insulin Detemir (Levemir Insulin) 5 units DAILY@0000 [place] 05/12/19 00:00 05/17/19 10:31 DC 05/16/19 00:10 Insulin [facility]emir ([facility]) [facility] 05/10/19 21:00 05/11/19 11:56 DC Insulin Human Lispro (HumaLOG INSULIN) SEE PROTOCOL TABLE AC [place] 05/10/19 17:30 05/11/19 11:46 DC 05/11/19 07:56 Insulin Human Lispro (HumaLOG INSULIN) SEE PROTOCOL TABLE AC ND 05/17/19 07:30 05/18/19 17:32 Insulin Human Lispro (HumaLOG INSULIN) [facility]OTOCOL [facility] Q6[facility] 05/11/19 12:00 05/17/19 10:31 DC 05/17/19 06:23 Insulin Human Lispro (HumaLOG INSULIN) SEE PROTOCOL TABLE [facility] 05/10/19 21:00 05/11/19 11:46 DC Insulin Human Lispro (HumaLOG INSULIN) SEE PROTOCOL TABLE [facility] 05/17/19 21:00 Lansoprazole (First-Lansoprazole Oral Suspension) 30 mg BID PEG 05/11/19 21:00 05/18/19 08:51 Lansoprazole (First-Lansoprazole Oral Suspension) 30 mg DAILY PEG 05/10/19 09:00 05/11/19 11:46 DC 05/11/19 07:57 Levofloxacin (Levaquin) 750 mg DAILY@06 GT 05/11/19 10:30 05/17/19 06:01 DC 05/17/19 06:23 Lidocaine/ Diphenhydr/Alum/ Mg/Simeth (Magic Mouthwash) 5ml AC SSP 05/11/19 07:30 05/11/19 11:43 DC 05/11/19 07:54 Lisinopril (Prinivil) 5 mg DAILY GT 05/12/19 09:00 05/12/19 11:05 DC 05/12/19 09:31 Lisinopril (Prinivil) 5 mg DAILY PO 05/11/19 09:00 05/11/19 11:43 DC 05/11/19 07:59 Lisinopril (Prinivil) 20 mg DAILY GT 05/13/19 09:00 05/18/19 07:01 Lorazepam (Ativan) 1 mg Q6HP PRN IM AGITATION 05/12/19 09:15 Miscellaneous (Unresolved Patient Own Med Order) SEE LABEL COMMENTS DAILY XX 05/12/19 09:00 05/15/19 14:52 DC Morphine Sulfate (Roxanol) 5 mg Q2HP PRN SL PAIN 05/12/19 16:00 05/18/19 11:04 DC 05/12/19 16:23 Patient Own Medication (Patient'S Own Med) SWISH AND SPIT 5 DROPS... [facility] SSP 05/10/19 18:30 05/15/19 18:17 DC Patient Own Medication (Patient'S Own Med) SWISH AND SPIT 5 DROPS... [facility] SSP 05/15/19 18:30 05/18/19 17:32 Propranolol HCl (Inderal Liquid) 10 mg TID PO 05/11/19 21:00 05/18/19 16:16 Tamsulosin HCl (Flomax) 0.4 mg BID PO 05/18/19 21:00 Tamsulosin HCl (Flomax) 0.4 mg DAILY PO 05/18/19 10:00 05/18/19 12:59 DC 05/18/19 10:20 Trazodone HCl (Desyrel) 25 mg Q6HP PRN GT AGITATION 05/11/19 11:45 05/11/19 18:36 Trazodone HCl (Desyrel) 25 mg Q6HP PRN PO AGITATION 05/10/19 12:45 05/11/19 11:43 DC Trazodone HCl (Desyrel) 25 mg QHS GT 05/11/19 21:00 05/12/19 09:07 DC 05/11/19 20:53 Trazodone HCl (Desyrel) 25 mg QHS PO 05/10/19 21:00 05/11/19 11:43 DC 05/10/19 20:39 Trazodone HCl (Desyrel) 50 mg QHS GT 05/12/19 21:00 05/17/19 21:57 SHARAN HOOVER MD May 18, 2019 18:39
[2019-05-18] MEDS: traZODone 50 MG TAB GT SCH (21:18)
[2019-05-18] MEDS: FLUoxetine 20 MG CAP GT SCH (21:18)
[2019-05-18] MEDS: TAMSULOSIN 0.4 MG CAP PO SCH (21:18)
--- NOTE | 2019-05-18 22:01 | IPNPDOC ---
Text Note Date of Service The patient was seen on 05/18/19. NOTE SUBJECTIVE: Mitts on as pt tries to pull his jane and feeding tube. asleep, but awakened easily. able to answer to his name and says "I'm alright." denies sob, n/v,chills. PHYSICAL EXAMINATION: VITAL SIGNS: pls see below GENERAL: awakens to his name. mitts on both hands, No respiratory distress. No use of accessory respiratory muscles. HEENT: Anicteric eyes, moist mucous membranes LUNGS: Clear to auscultation. No wheezing, rales or rhonchi. HEART: S1, S2 normal , regular No murmurs, rubs or gallops. ABDOMEN: Soft, nontender, nondistended. Positive bowel sounds times four quadrants. No rebound or guarding. Feeding tube in place.jane NEUROLOGIC: : Left facial drooping. Able to squeeze hands. Continues to have some aphasia and left facial field loss. Strength is 4 out of 5 in the left upper and lower extremities. 5/5 in right lower extremity. LABORATORY DATA: As below reviewed. ASSESSMENT AND PLAN: This is a 63-year-old male with hypertension and diabetes who was transferred to [facility] from [facility] where he presented with an acute ischemic bilateral thalamic, right occipital, right cerebellar stroke on 04/26/2019 when he was driving erratically. Due to dysphagia, the patient underwent feeding tube placement on 05/06/2019. Bubble study echo showed no intraatrial shunting, ejection fraction of 65 to 70%. He continued to have persistent dysarthria and disorientation and left sided hemianopia and left sided hemiparesis. The patient is transferred to acute rehabilitation unit for further rehabilitation. Since he had been at rehabilitation, the patient had malfunctioning feeding tube which was replaced here by general surgery. S/P Acute CVA with residual left hemiparesis and hemianopia, dysarthria, dysphag ia. in vertebrobasillar distribution thought to be embolic Bubble study negtive thoughts about loop recorder placement. bilateral thalamic, right occipital, right cerebellar secondary to bilateral vertebral, basal, intracranial and extracranial artery disease in the setting of prior history of smoking, diabetes and hypertension. The patient has exhibited significant confusion and has pulled his feeding tube, which is now being replaced by surgery if it is in the correct position. He is continued on aspirin, Plavix and Lipitor according to neurology for treatment of his stroke. Hypertension. uncontrolled. Currently on Lisinopril propralol and hydralazine, doxazocin hydralazine dose was increased. Type 2 diabetes. Currently on Lispro insulin sliding scale. On fingersticks every 6 hours. Hypoglycemic protocol and Levemir insulin. Deep vein thrombosis (DVT) prophylaxis is subcutaneous Lovenox. Encephalopathy due to CVA, pt has mitts on due to attempts to pull on his jane and feeding tube. Has episodes of agitation, trazodone ordered prn, insomnia on trazodone. Propranolol for agitation which may have a component of dysautonomia in setting of stroke Acute urinary retension with Jane in LAURA started on flomax bid. DVT prophylaxis in place. VS,Fishbone, I+O VS, Fishbone, I+O Vital Signs Date Time Temp Pulse Resp B/P (MAP) Pulse Ox O2 Delivery O2 Flow Rate FiO2 05/18/19 21:18 190/92 05/18/19 21:18 98 05/18/19 20:00 97.4 18 97 I&O- Last 24 Hours up to 6 AM 05/18/19 05:59 Intake Total 1460 ml Output Total 2910 ml Balance -1450 ml GUME CHATTERJEE MD May 18, 2019 22:01
[2019-05-19 04:00] VITALS: BP 168/68
[2019-05-19] MEDS: LISINOPRIL 20 MG TAB GT SCH (06:00)
[2019-05-19] MEDS: PROPRANOLOL 20 MG/5 ML PO SCH ×3 (06:01→21:12)
[2019-05-19 07:40] LABS: HEMATOCRIT 32.5 % (42.0-52.0); HEMOGLOBIN 10.8 g/dl (13.5-17.5); MEAN CORPUSCULAR HEMOGLOBIN 29.4 pg (27.0-33.0); MEAN CORPUSCULAR HGB CONC 33.2 g/dl (32.0-36.5); MEAN CORPUSCULAR VOLUME 88.6 fl (80.0-96.0); PLATELET COUNT, AUTOMATED 427 10^3/uL (150-450); RED BLOOD COUNT 3.67 10^6/uL (4.30-6.10); WHITE BLOOD COUNT 9.3 10^3/uL (4.0-10.0)
[2019-05-19] MEDS: guaiFENesin SYRUP 200 MG/10 ML UDC GT SCH ×2 (08:28→21:11)
[2019-05-19] MEDS: LANSOPRAZOLE SUSPENSION 30 MG/10 ML ORAL SYRINGE (FIRST-LANSOPRAZOLE) PEG SCH ×2 (08:28→21:12)
[2019-05-19] MEDS: ENOXAPARIN 40 MG/0.4 ML SYRINGE (J1650) SC SCH (08:29)
[2019-05-19] MEDS: HumaLOG INSULIN (NovoLOG) PER UNIT SC SCH ×4 (08:29→21:00)
[2019-05-19] MEDS: **hydrALAZINE** 50 MG TAB PO SCH ×2 (08:29→16:00)
[2019-05-19] MEDS: ASPIRIN 81 MG CHEW TABLET PEG SCH (08:29)
[2019-05-19] MEDS: CLOPIDOGREL 75 MG TAB PO SCH (08:30)
[2019-05-19] MEDS: DOXAZOSIN MESYLATE 1 MG TAB GT SCH (08:30)
[2019-05-19] MEDS: TAMSULOSIN 0.4 MG CAP PO SCH ×2 (08:30→21:11)
[2019-05-19] MEDS: ATORVASTATIN 20 MG TAB GT SCH (08:30)
[2019-05-19] MEDS: GLY OXIDE SSP SCH ×4 (08:31→21:12)
[2019-05-19] MEDS: POLYVINYL ALCOHOL OPHTH SOLN 15 ML(LIQUITEARS) OU SCH ×4 (08:31→21:13)
[2019-05-19] MEDS: **hydrALAZINE** 10 MG TAB PO SCH ×3 (09:00→21:41)
[2019-05-19 14:00] VITALS: BP 102/53
[2019-05-19 20:00] VITALS: BP_SYST 140; BP_SYST 142; BP_DIAS 62; BP_DIAS 68
[2019-05-19] MEDS: traZODone 50 MG TAB GT SCH (21:11)
[2019-05-19] MEDS: FLUoxetine 20 MG CAP GT SCH (21:11)
[2019-05-20 06:00] VITALS: BP 184/80
[2019-05-20] MEDS: ENOXAPARIN 40 MG/0.4 ML SYRINGE (J1650) SC SCH (08:52)
[2019-05-20] MEDS: LANSOPRAZOLE SUSPENSION 30 MG/10 ML ORAL SYRINGE (FIRST-LANSOPRAZOLE) PEG SCH ×2 (08:52→21:09)
[2019-05-20] MEDS: PROPRANOLOL 20 MG/5 ML PO SCH (08:52)
[2019-05-20] MEDS: ASPIRIN 81 MG CHEW TABLET PEG SCH (08:53)
[2019-05-20] MEDS: DOXAZOSIN MESYLATE 1 MG TAB GT SCH (08:53)
[2019-05-20] MEDS: guaiFENesin SYRUP 200 MG/10 ML UDC GT SCH ×2 (08:54→21:09)
[2019-05-20] MEDS: ATORVASTATIN 20 MG TAB GT SCH (08:54)
[2019-05-20] MEDS: LISINOPRIL 20 MG TAB GT SCH (08:54)
[2019-05-20] MEDS: TAMSULOSIN 0.4 MG CAP PO SCH ×2 (08:54→21:09)
[2019-05-20] MEDS: **hydrALAZINE** 10 MG TAB PO SCH ×3 (08:54→21:09)
[2019-05-20] MEDS: CLOPIDOGREL 75 MG TAB PO SCH (08:54)
[2019-05-20] MEDS: HumaLOG INSULIN (NovoLOG) PER UNIT SC SCH ×4 (08:55→21:00)
[2019-05-20] MEDS: POLYVINYL ALCOHOL OPHTH SOLN 15 ML(LIQUITEARS) OU SCH ×4 (08:55→21:10)
[2019-05-20] MEDS: GLY OXIDE SSP SCH ×4 (08:55→21:19)
--- NOTE | 2019-05-20 12:50 | IPNPDOC ---
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 Later in therapy his blood pressure was lower than usual sBP 90-100 and he said he felt a little dizzy. Later he was seen in his room eating his meal comfortabl y. REVIEW OF SYSTEMS: The following is a completed review of systems and has been reviewed. Review of systems otherwise unremarkable. PAIN: Patient self reports no pain EYES: +visual deficit EARS, NOSE, & THROAT:+dysphagia CARDIOVASCULAR: Denies chest pain or palpitations PULMONARY: Denies shortness of breath GASTROINTESTINAL: Denies constipation/diarrhea GENITOURINARY: +urinary retention (gradually improving) MUSCULOSKELETAL: no joint pain/deformities NEUROLOGICAL:+stroke HEMATOLOGICAL: no easy bruising SKIN: PeG site PSYCHIATRIC: +confused (improving) All other review of systems found to be negative. PHYSICAL EXAMINATION: VITAL SIGNS: Please see below. GENERAL: Pleasant and cooperative. No acute distress. HEENT: PERRL. Extraocular movements impaired, eyes fixed inferiorly and to the right, able to cross midline, Clear conjunctiva CARDIOVASCULAR: Regular rate and rhythm. No murmurs, rubs, or gallops LUNGS: Clear to auscultation bilaterally. No wheezes. No rhonchi ABDOMEN: Soft, nontender, nondistended. Positive bowel sounds. Normal active bowel sounds +PEG NEUROLOGICAL: Alert and oriented to self only . 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 4/5 strength in left lower extremity. SKIN:no rash ASSESSMENT:63-year-old M with past medical history of HTN and DM who presents status post stroke PLAN: 1. 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 Cardiac: pmh HTN, c/u BP meds and adjust prn, medicine consulted to assist in management -c/u hyrdralazine 40mg TID with hold parameters, had increased lisinopril yesterday to 20mg daily, will return to 10mg and change Flomax to just qHS to avoid drops in BPS -will discuss possibility of in-house loop recorder placement with cardiology for possible cryptogenic stroke 4. Resp: encourage incentive spirometry, admission CXR +left lower lobe infiltrate, s/p Levofloxacin, Duonebs and Guaifenesin- no leukocytosis at this point, will continue to monitor 5. Endo: pmh DM, cu ISS FS q6h 6. : urinary retention with Jane placed per [facility] urology, jane removed, c/u Flomax for urinary retention (changed to qHS) and continue bladder scan with IC -collect UA to r/o infection- UA negative no Cx reflex 7. DVT ppx: Lovenox and TEDs, admission Dopplers negative 8. GI ppx: Lansoprazole BID -patient pulled his PEG 05/12/19 and replaced at bedside by surgery, then rep laced in OR on 05/13/19, mild leukocytosis resolved, abdomen soft, afebrile, will continue to monitor for peritonitis-stable 9. Nutrition: PEG in place, however diet advanced to po, eating well 10. Skin: turn q2h and monitor for skin break down 11. Psych: episodes of agitation, trazodone ordered prn, insomnia c/u trazodone 25mg qHS standing -c/u Propranolol 10 mg TID to assist with agitation which may have a component of dysautonomia in setting of stroke -may use Ativan IM prn agitation if trazodone does not work -avoid overstimulating and adjust environment prn 12. Dispo: 06/03/19 to home with 24-7 Allergies Coded Allergies: No Known Allergies (Unverified , 05/10/19) Vital Signs Vital Signs Date Time Temp Pulse Resp B/P (MAP) Pulse Ox O2 Delivery O2 Flow Rate FiO2 9/27/19 08:54 176/81 05/20/19 08:52 64 05/20/19 06:00 97.6 16 97 Laboratory Data Labs 24H Laboratory Tests 2 05/19/19 17:20: Bedside Glucose (Misc Panel) 154H 05/19/19 20:36: Bedside Glucose (Misc Panel) 161H 05/20/19 07:16: Bedside Glucose (Misc Panel) 160H 05/20/19 11:23: Bedside Glucose (Misc Panel) 184H Current Medications Current Medications Current Medications Medications (Trade) Dose Ordered Sig/Maricruz Route PRN Reason Start Time Stop Time Status Last Admin Dose Admin Acetaminophen (Tylenol Suspension) 650 mg Q4HP PRN GT PAIN OR FEVER 05/10/19 12:45 05/16/19 21:47 Albuterol/ Ipratropium (Duoneb (Ipr 0.5mg/Alb 2.5mg)) 3 ml RBID NEB 05/11/19 08:00 05/12/19 12:31 DC 05/12/19 07:28 Artificial Tears (Akwa Tears) 2 drop QID OU 05/10/19 13:00 05/20/19 08:55 Aspirin (Aspirin Chewable) 81 mg DAILY PEG 05/11/19 09:00 05/20/19 08:53 Atorvastatin Calcium (Lipitor) 80 mg DAILY GT 05/11/19 09:00 05/20/19 08:54 Carbamide Peroxide (Debrox) 5 drop PCHS XX 05/10/19 18:30 05/14/19 18:29 Cancel Clopidogrel Bisulfate (PLAVix) 75 mg DAILY PO 05/11/19 09:00 05/20/19 08:54 Dextrose (Dextrose 50%) 25 ml ASDIRECTED PRN IV SEE LABEL COMMENTS 05/10/19 12:45 05/18/19 12:25 DC Dextrose (Dextrose 50%) 25 ml ASDIRECTED PRN IV SEE LABEL COMMENTS 05/17/19 10:30 Dextrose/Sodium Chloride 1,000 ml @ 75 mls/hr [id number] IV 05/12/19 18:45 05/14/19 13:16 DC 05/14/19 06:30 Doxazosin Mesylate (Cardura) 2 mg DAILY GT 05/12/19 09:00 05/20/19 08:53 Doxazosin Mesylate (Cardura) 2 mg DAILY PO 05/11/19 09:00 05/11/19 11:43 DC 05/11/19 07:58 Enoxaparin Sodium (Lovenox) 40 mg DAILY SC 05/11/19 09:00 05/20/19 08:52 Fluoxetine HCl (PROzac) 20 mg QHS GT 05/11/19 21:00 05/19/19 21:11 Glucagon (Glucagon) 1 mg ASDIRECTED PRN SC SEE LABEL COMMENTS 05/10/19 12:45 05/18/19 12:25 DC Glucagon (Glucagon) 1 mg ASDIRECTED PRN SC SEE LABEL COMMENTS 05/17/19 10:30 Glucose (Glucose) 16 GM ASDIRECTED PRN PO SEE LABEL COMMENTS 05/10/19 12:45 05/18/19 12:25 DC Glucose (Glucose) 16 GM ASDIRECTED PRN PO SEE LABEL COMMENTS 05/17/19 10:30 Guaifenesin (Robitussin) 10 ml BID GT 05/11/19 09:00 05/20/19 08:54 Home Med (Med Rec Complete!) ASDIRECTED XX 05/10/19 13:30 05/10/19 13:30 DC Hydralazine HCl (Apresoline) 20 mg TID PO 05/16/19 09:00 05/18/19 16:30 DC 05/18/19 16:16 Hydralazine HCl (Apresoline) 40 mg TID PO 05/18/19 21:00 05/20/19 08:54 Hydralazine HCl (Apresoline) 50 mg TID PO 05/19/19 09:00 05/19/19 17:00 DC 05/19/19 08:29 Insulin Detemir (Levemir Insulin) 5 units DAILY@0000 [place] 05/12/19 00:00 05/17/19 10:31 DC 05/16/19 00:10 Insulin Detemir (Levemir Insulin) 10 units QHS SC 05/10/19 21:00 05/11/19 11:56 DC Insulin Human Lispro (HumaLOG INSULIN) SEE PROTOCOL TABLE AC SC 05/10/19 17:30 05/11/19 11:46 DC 05/11/19 07:56 Insulin Human Lispro (HumaLOG INSULIN) SEE PROTOCOL TABLE AC [place] 05/17/19 07:30 05/20/19 12:26 Insulin Human Lispro (HumaLOG INSULIN) SEE PROTOCOL TABLE Q6H [place] 05/11/19 12:00 05/17/19 10:31 DC 05/17/19 06:23 Insulin Human Lispro (HumaLOG INSULIN) SEE PROTOCOL TABLE QHS [place] 05/10/19 21:00 05/11/19 11:46 DC Insulin Human Lispro (HumaLOG INSULIN) SEE PROTOCOL TABLE QHS [place] 05/17/19 21:00 Lansoprazole (First-Lansoprazole Oral Suspension) 30 mg BID PEG 05/11/19 21:00 05/20/19 08:52 Lansoprazole (First-Lansoprazole Oral Suspension) 30 mg DAILY PEG 05/10/19 09:00 05/11/19 11:46 DC 05/11/19 07:57 Levofloxacin (Levaquin) 750 mg DAILY@06 GT 05/11/19 10:30 05/17/19 06:01 DC 05/17/19 06:23 Lidocaine/ Diphenhydr/Alum/ Mg/Simeth (Magic Mouthwash) 5ml AC SSP 05/11/19 07:30 05/11/19 11:43 DC 05/11/19 07:54 Lisinopril (Prinivil) 5 mg DAILY GT 05/12/19 09:00 05/12/19 11:05 DC 05/12/19 09:31 Lisinopril (Prinivil) 5 mg DAILY PO 05/11/19 09:00 05/11/19 11:43 DC 05/11/19 07:59 Lisinopril (Prinivil) 10 mg DAILY GT 05/21/19 09:00 Lisinopril (Prinivil) 20 mg DAILY GT 05/13/19 09:00 05/20/19 10:38 DC 05/20/19 08:54 Lorazepam (Ativan) 1 mg Q6HP PRN IM AGITATION 05/12/19 09:15 Miscellaneous (Unresolved Patient Own Med Order) SEE LABEL COMMENTS DAILY XX 05/12/19 09:00 05/15/19 14:52 DC Morphine Sulfate (Roxanol) 5 mg Q2HP PRN SL PAIN 05/12/19 16:00 05/18/19 11:04 DC 05/12/19 16:23 Patient Own Medication (Patient'S Own Med) SWISH AND SPIT 5 DROPS... [facility] 05/10/19 18:30 05/15/19 18:17 DC Patient Own Medication (Patient'S Own Med) SWISH AND SPIT 5 DROPS... [facility] 05/15/19 18:30 05/20/19 08:55 Propranolol HCl (Inderal Liquid) 10 mg TID PO 05/11/19 21:00 05/20/19 10:38 DC 05/20/19 08:52 Tamsulosin HCl (Flomax) 0.4 mg BID PO 05/18/19 21:00 05/20/19 10:38 DC 05/20/19 08:54 Tamsulosin HCl (Flomax) 0.4 mg DAILY PO 05/18/19 10:00 05/18/19 12:59 DC 05/18/19 10:20 Tamsulosin HCl (Flomax) 0.4 mg QHS PO 05/20/19 21:00 Trazodone HCl (Desyrel) 25 mg Q6HP PRN GT AGITATION 05/11/19 11:45 05/11/19 18:36 Trazodone HCl (Desyrel) 25 mg Q6HP PRN PO AGITATION 05/10/19 12:45 05/11/19 11:43 DC Trazodone HCl (Desyrel) 25 mg QHS GT 05/11/19 21:00 05/12/19 09:07 DC 05/11/19 20:53 Trazodone HCl (Desyrel) 25 mg QHS PO 05/10/19 21:00 05/11/19 11:43 DC 05/10/19 20:39 Trazodone HCl (Desyrel) 50 mg QHS GT 05/12/19 21:00 05/19/19 21:11 SHARAN HOOVER MD May 20, 2019 12:50
--- NOTE | 2019-05-20 12:50 | IPNPDOC ---
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 He denies having any pain. REVIEW OF SYSTEMS: The following is a completed review of systems and has been reviewed. Review of systems otherwise unremarkable. PAIN: Patient self reports no pain EYES: +visual deficit EARS, NOSE, & THROAT:+dysphagia CARDIOVASCULAR: Denies chest pain or palpitations PULMONARY: Denies shortness of breath GASTROINTESTINAL: Denies constipation/diarrhea GENITOURINARY: +urinary retention (gradually improving) MUSCULOSKELETAL: no joint pain/deformities NEUROLOGICAL:+stroke HEMATOLOGICAL: no easy bruising SKIN: PeG site PSYCHIATRIC: +confused (improving) All other review of systems found to be negative. PHYSICAL EXAMINATION: VITAL SIGNS: Please see below. GENERAL: Pleasant and cooperative. No acute distress. HEENT: PERRL. Extraocular movements impaired, eyes fixed inferiorly and to the right, able to cross midline, Clear conjunctiva CARDIOVASCULAR: Regular rate and rhythm. No murmurs, rubs, or gallops LUNGS: Clear to auscultation bilaterally. No wheezes. No rhonchi ABDOMEN: Soft, nontender, nondistended. Positive bowel sounds. Normal active bowel sounds +PEG NEUROLOGICAL: Alert and oriented to self only . 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 4/5 strength in left lower extremity. SKIN:no rash ASSESSMENT:63-year-old M with past medical history of HTN and DM who presents status post stroke PLAN: 1. 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 Cardiac: pmh HTN, c/u BP meds and adjust prn, medicine consulted to assist in management -c/u hyrdralazine will increase from 20 mg to 40mg TID with hold parameters -will discuss possibility of in-house loop recorder placement with cardiology for possible cryptogenic stroke 4. Resp: encourage incentive spirometry, admission CXR +left lower lobe infiltra te, s/p Levofloxacin, Duonebs and Guaifenesin- no leukocytosis at this point, will continue to monitor 5. Endo: pmh DM, cu ISS FS q6h 6. : urinary retention with Jane placed per [facility] urology, jane removed, c/u Flomax for urinary retention and continue bladder scan with IC -collect UA to r/o infection- UA negative no Cx reflex 7. DVT ppx: Lovenox and TEDs, admission Dopplers negative 8. GI ppx: Lansoprazole BID -patient pulled his PEG 05/12/19 and replaced at bedside by surgery, then replaced in OR on 05/13/19, mild leukocytosis resolved, abdomen soft, afebrile, will continue to monitor for peritonitis-stable 9. Nutrition: PEG in place, however diet advanced to po, eating well 10. Skin: turn q2h and monitor for skin break down 11. Psych: episodes of agitation, trazodone ordered prn, insomnia c/u trazodone 25mg qHS standing -c/u Propranolol 10 mg TID to assist with agitation which may have a component of dysautonomia in setting of stroke -may use Ativan IM prn agitation if trazodone does not work -avoid overstimulating and adjust environment prn 12. Dispo: 06/03/19 to home with 24-7 Allergies Coded Allergies: No Known Allergies (Unverified , 05/10/19) Vital Signs Vital Signs Date Time Temp Pulse Resp B/P (MAP) Pulse Ox O2 Delivery O2 Flow Rate FiO2 05/20/19 08:54 176/81 05/20/19 08:52 64 05/20/19 06:00 97.6 16 97 Laboratory Data Labs 24H Laboratory Tests 2 05/19/19 17:20: Bedside Glucose (Misc Panel) 154H 05/19/19 20:36: Bedside Glucose (Misc Panel) 161H 05/20/19 07:16: Bedside Glucose (Misc Panel) 160H 05/20/19 11:23: Bedside Glucose (Misc Panel) 184H Current Medications Current Medications Current Medications Medications (Trade) Dose Ordered Sig/Maricruz Route PRN Reason Start Time Stop Time Status Last Admin Dose Admin Acetaminophen (Tylenol Suspension) 650 mg Q4HP PRN GT PAIN OR FEVER 05/10/19 12:45 05/16/19 21:47 Albuterol/ Ipratropium (Duoneb (Ipr 0.5mg/Alb 2.5mg)) 3 ml RBID NEB 05/11/19 08:00 05/12/19 12:31 DC 05/12/19 07:28 Artificial Tears (Akwa Tears) 2 drop QID OU 05/10/19 13:00 05/20/19 08:55 Aspirin (Aspirin Chewable) 81 mg DAILY PEG 05/11/19 09:00 05/20/19 08:53 Atorvastatin Calcium (Lipitor) 80 mg DAILY GT 05/11/19 09:00 05/20/19 08:54 Carbamide Peroxide (Debrox) 5 drop PCHS XX 05/10/19 18:30 05/14/19 18:29 Cancel Clopidogrel Bisulfate (PLAVix) 75 mg DAILY PO 05/11/19 09:00 05/20/19 08:54 Dextrose (Dextrose 50%) 25 ml ASDIRECTED PRN IV SEE LABEL COMMENTS 05/10/19 12:45 05/18/19 12:25 DC Dextrose (Dextrose 50%) 25 ml ASDIRECTED PRN IV SEE LABEL COMMENTS 05/17/19 10:30 Dextrose/Sodium Chloride 1,000 ml @ 75 mls/hr [id number] IV 05/12/19 18:45 05/14/19 13:16 DC 05/14/19 06:30 Doxazosin Mesylate (Cardura) 2 mg DAILY GT 05/12/19 09:00 05/20/19 08:53 Doxazosin Mesylate (Cardura) 2 mg DAILY PO 05/11/19 09:00 05/11/19 11:43 DC 05/11/19 07:58 Enoxaparin Sodium (Lovenox) 40 mg DAILY SC 05/11/19 09:00 05/20/19 08:52 Fluoxetine HCl (PROzac) 20 mg QHS GT 05/11/19 21:00 05/19/19 21:11 Glucagon (Glucagon) 1 mg ASDIRECTED PRN SC SEE LABEL COMMENTS 05/10/19 12:45 05/18/19 12:25 DC Glucagon (Glucagon) 1 mg ASDIRECTED PRN SC SEE LABEL COMMENTS 05/17/19 10:30 Glucose (Glucose) 16 GM ASDIRECTED PRN PO SEE LABEL COMMENTS 05/10/19 12:45 05/18/19 12:25 DC Glucose (Glucose) 16 GM ASDIRECTED PRN PO SEE LABEL COMMENTS 05/17/19 10:30 Guaifenesin (Robitussin) 10 ml BID GT 05/11/19 09:00 05/20/19 08:54 Home Med (Med Rec Complete!) ASDIRECTED XX 05/10/19 13:30 05/10/19 13:30 DC Hydralazine HCl (Apresoline) 20 mg TID PO 05/16/19 09:00 05/18/19 16:30 DC 05/18/19 16:16 Hydralazine HCl (Apresoline) 40 mg TID PO 05/18/19 21:00 05/20/19 08:54 Hydralazine HCl (Apresoline) 50 mg TID PO 05/19/19 09:00 05/19/19 17:00 DC 05/19/19 08:29 Insulin Detemir (Levemir Insulin) 5 units DAILY@0000 [place] 05/12/19 00:00 05/17/19 10:31 DC 05/16/19 00:10 Insulin Detemir (Levemir Insulin) 10 units QHS [place] 05/10/19 21:00 05/11/19 11:56 DC Insulin Human Lispro (HumaLOG INSULIN) SEE PROTOCOL TABLE AC [place] 05/10/19 17:30 05/11/19 11:46 DC 05/11/19 07:56 Insulin Human Lispro (HumaLOG INSULIN) SEE PROTOCOL TABLE AC [place] 05/17/19 07:30 05/20/19 12:26 Insulin Human Lispro (HumaLOG INSULIN) SEE PROTOCOL TABLE Q6H [place] 05/11/19 12:00 05/17/19 10:31 DC 05/17/19 06:23 Insulin Human Lispro (H[facility]LOG INSULIN) [facility] 05/10/19 21:00 05/11/19 11:46 DC Insulin Human Lispro (HumaLOG INSULIN) [facility]OTOCOL [facility] 05/17/19 21:00 Lansoprazole (First-Lansoprazole Oral Suspension) 30 mg BID PEG 05/11/19 21:00 05/20/19 08:52 Lansoprazole (First-Lansoprazole Oral Suspension) 30 mg DAILY PEG 05/10/19 09:00 05/11/19 11:46 DC 05/11/19 07:57 Levofloxacin (Levaquin) 750 mg DAILY@06 GT 05/11/19 10:30 05/17/19 06:01 DC 05/17/19 06:23 Lidocaine/ Diphenhydr/Alum/ Mg/Simeth (Magic Mouthwash) 5ml AC SSP 05/11/19 07:30 05/11/19 11:43 DC 05/11/19 07:54 Lisinopril (Prinivil) 5 mg DAILY GT 05/12/19 09:00 05/12/19 11:05 DC 05/12/19 09:31 Lisinopril (Prinivil) 5 mg DAILY PO 05/11/19 09:00 05/11/19 11:43 DC 05/11/19 07:59 Lisinopril (Prinivil) 10 mg DAILY GT 05/21/19 09:00 Lisinopril (Prinivil) 20 mg DAILY GT 05/13/19 09:00 05/20/19 10:38 DC 05/20/19 08:54 Lorazepam (Ativan) 1 mg Q6HP PRN IM AGITATION 05/12/19 09:15 Miscellaneous (Unresolved Patient Own Med Order) SEE LABEL COMMENTS DAILY XX 05/12/19 09:00 05/15/19 14:52 DC Morphine Sulfate (Roxanol) 5 mg Q2HP PRN SL PAIN 05/12/19 16:00 05/18/19 11:04 DC 05/12/19 16:23 Patient Own Medication (Patient'S Own Med) SWISH AND SPIT 5 DROPS... [facility] 05/10/19 18:30 05/15/19 18:17 DC Patient Own Medication (Patient'S Own Med) SWISH AND SPIT 5 DROPS... [facility] 05/15/19 18:30 05/20/19 08:55 Propranolol HCl (Inderal Liquid) 10 mg TID PO 05/11/19 21:00 05/20/19 10:38 DC 05/20/19 08:52 Tamsulosin HCl (Flomax) 0.4 mg BID PO 05/18/19 21:00 05/20/19 10:38 DC 05/20/19 08:54 Tamsulosin HCl (Flomax) 0.4 mg DAILY PO 05/18/19 10:00 05/18/19 12:59 DC 05/18/19 10:20 Tamsulosin HCl (Flomax) 0.4 mg QHS PO 05/20/19 21:00 Trazodone HCl (Desyrel) 25 mg Q6HP PRN GT AGITATION 05/11/19 11:45 05/11/19 18:36 Trazodone HCl (Desyrel) 25 mg Q6HP PRN PO AGITATION 05/10/19 12:45 05/11/19 11:43 DC Trazodone HCl (Desyrel) 25 mg QHS GT 05/11/19 21:00 05/12/19 09:07 DC 05/11/19 20:53 Trazodone HCl (Desyrel) 25 mg QHS PO 05/10/19 21:00 05/11/19 11:43 DC 05/10/19 20:39 Trazodone HCl (Desyrel) 50 mg QHS GT 05/12/19 21:00 05/19/19 21:11 SHARAN HOOVER MD May 20, 2019 12:50
[2019-05-20 14:00] VITALS: BP 98/55
[2019-05-20 21:01] VITALS: BP 202/94
[2019-05-20] MEDS: FLUoxetine 20 MG CAP GT SCH (21:09)
[2019-05-20] MEDS: traZODone 50 MG TAB GT SCH (21:09)
[2019-05-20 22:20] VITALS: BP 210/90
[2019-05-20 23:05] VITALS: BP 202/86
[2019-05-20] MEDS ORDERED: **hydrALAZINE** 10 MG TAB PO ONE (23:15)
[2019-05-21] VITALS (10 sets, daily range): BP systolic 105–226; BP diastolic 54–86
[2019-05-21] MEDS ORDERED: LISINOPRIL 10 MG TAB PO ONE (01:00)
[2019-05-21] MEDS: ACETAMINOPHEN 325 MG/10.15 ML UDC GT PRN (02:31)
[2019-05-21] MEDS ORDERED: **hydrALAZINE HCL** 25 MG TAB PO ONE (02:45)
[2019-05-21] MEDS: **hydrALAZINE** 10 MG TAB PO SCH ×3 (09:00→20:59)
[2019-05-21] MEDS: LANSOPRAZOLE SUSPENSION 30 MG/10 ML ORAL SYRINGE (FIRST-LANSOPRAZOLE) PEG SCH ×2 (09:08→21:00)
[2019-05-21] MEDS: LISINOPRIL 10 MG TAB GT SCH (09:09)
[2019-05-21] MEDS: DOXAZOSIN MESYLATE 1 MG TAB GT SCH (09:09)
[2019-05-21] MEDS: HumaLOG INSULIN (NovoLOG) PER UNIT SC SCH ×4 (09:09→21:00)
[2019-05-21] MEDS: ENOXAPARIN 40 MG/0.4 ML SYRINGE (J1650) SC SCH (09:09)
[2019-05-21] MEDS: ATORVASTATIN 20 MG TAB GT SCH (09:09)
[2019-05-21] MEDS: ASPIRIN 81 MG CHEW TABLET PEG SCH (09:09)
[2019-05-21] MEDS: CLOPIDOGREL 75 MG TAB PO SCH (09:09)
[2019-05-21] MEDS: POLYVINYL ALCOHOL OPHTH SOLN 15 ML(LIQUITEARS) OU SCH ×4 (09:10→21:03)
[2019-05-21] MEDS: guaiFENesin SYRUP 200 MG/10 ML UDC GT SCH ×2 (09:10→21:00)
[2019-05-21] MEDS: GLY OXIDE SSP SCH ×4 (09:10→21:03)
[2019-05-21] MEDS: TAMSULOSIN 0.4 MG CAP PO SCH (20:59)
[2019-05-21] MEDS: FLUoxetine 20 MG CAP GT SCH (20:59)
[2019-05-21] MEDS: traZODone 50 MG TAB GT SCH (21:00)
[2019-05-22] VITALS (7 sets, daily range): BP systolic 117–190; BP diastolic 59–91
[2019-05-22] MEDS: ACETAMINOPHEN 325 MG/10.15 ML UDC GT PRN (00:13)
--- NOTE | 2019-05-22 00:29 | REPVR ---
PROCEDURE INFORMATION: Exam: CT Head Without Contrast Exam date and time: 05/21/2019 12:00 AM Clinical history: 64 years old, male; Injury or trauma; Fall; Initial encounter; Blunt trauma (contusions or hematomas); Consciousness not specified; Additional info: Fall from hosp bed TECHNIQUE: Imaging protocol: Computed tomography of the head without contrast. Radiation optimization: All CT scans at this facility use at least one of these dose optimization techniques: automated exposure control; mA and/or kV adjustment per patient size (includes targeted exams where dose is matched to clinical indication); or iterative reconstruction. COMPARISON: No relevant prior studies available. FINDINGS: Brain: There are acute-subacute infarcts involving the bilateral thalami and right [employer] territory involving the medial temporal lobe extending into the right occipital lobe. Small foci of parenchymal hemorrhage are noted within the right [employer] infarct. No midline shift, mass effect or herniation. No extra-axial hemorrhage is seen. Ventricles: Normal. No ventriculomegaly. Bones/joints: Unremarkable. No acute fracture. Sinuses: Visualized sinuses are unremarkable. No fluid levels. Mastoid air cells: Visualized mastoid air cells are well aerated. Soft tissues: Unremarkable. IMPRESSION: 1. Acute-subacute infarcts involving the bilateral thalami and right [employer] territory. Small foci of hemorrhage within the right [employer] infarct. 2. No midline shift or herniation. Electronically signed by: Rikki Canales On 05/22/2019 00:28:12 AM
[2019-05-22] MEDS: **hydrALAZINE** 10 MG TAB PO SCH ×3 (09:00→18:33)
[2019-05-22] MEDS: ENOXAPARIN 40 MG/0.4 ML SYRINGE (J1650) SC SCH (09:11)
[2019-05-22] MEDS: POLYVINYL ALCOHOL OPHTH SOLN 15 ML(LIQUITEARS) OU SCH ×4 (09:11→21:17)
[2019-05-22] MEDS: HumaLOG INSULIN (NovoLOG) PER UNIT SC SCH ×4 (09:11→19:55)
[2019-05-22] MEDS: LISINOPRIL 10 MG TAB GT SCH (09:12)
[2019-05-22] MEDS: LANSOPRAZOLE SUSPENSION 30 MG/10 ML ORAL SYRINGE (FIRST-LANSOPRAZOLE) PEG SCH ×2 (09:12→21:16)
[2019-05-22] MEDS: GLY OXIDE SSP SCH ×4 (09:12→21:17)
[2019-05-22] MEDS: ASPIRIN 81 MG CHEW TABLET PEG SCH (09:12)
[2019-05-22] MEDS: guaiFENesin SYRUP 200 MG/10 ML UDC GT SCH ×2 (09:12→21:15)
[2019-05-22] MEDS: DOXAZOSIN MESYLATE 1 MG TAB GT SCH (09:12)
[2019-05-22] MEDS: ATORVASTATIN 20 MG TAB GT SCH (09:12)
[2019-05-22] MEDS: CLOPIDOGREL 75 MG TAB PO SCH (09:13)
--- NOTE | 2019-05-22 10:15 | IPNPDOC ---
Text Note Date of Service The patient was seen on 05/22/19. NOTE SUBJECTIVE: Pateint sleeping but easily woke up on calling his name however refused to open his eyes, He followed all commands showed me his tongue, squeezed my fingers, denied any discomfort. Did not offer any complaints. Chart review shows that his blood pressure is having wide fluctuations. BPs are elevated mosly in the evenings. As per nurses patient becomes antsy and irritable in the evenings and sleepy in the mornings. No fever or chills, no nausea or vomiting or diarrhea. Bp well controlled this morning. PHYSICAL EXAMINATION: VITAL SIGNS: pls see below GENERAL: awakens to his name. Follows commands. sleeping without any distress. HEENT: Anicteric eyes, moist mucous membranes LUNGS: Clear to auscultation. No wheezing, rales or rhonchi. HEART: S1, S2 normal , regular No murmurs, rubs or gallops. ABDOMEN: Soft, nontender, nondistended. Positive bowel sounds times four quadr ants. No rebound or guarding. Feeding tube in place.jane NEUROLOGIC: : Left facial drooping. Able to squeeze hands. Continues to have some aphasia and left facial field loss. Strength is 4 out of 5 in the left upper and lower extremities. 5/5 in right lower extremity. LABORATORY DATA: As below reviewed. ASSESSMENT AND PLAN: This is a 63-year-old male with hypertension and diabetes who was transferred to [facility] from [facility] where he presented with an acute ischemic bilateral thalamic, right occipital, right cerebellar stroke on 04/26/2019 when he was driving erratically. Due to dysphagia, the patient underwent feeding tube placement on 05/06/2019. Bubble study echo showed no intraatrial shunting, ejection fraction of 65 to 70%. He continued to have persistent dysarthria and disorientation and left sided hemianopia and left sided hemiparesis. The patient is transferred to acute rehabilitation unit for further rehabilitation. [facility], the patient had malfunctioning feeding tube which was replaced here by general surgery. S/P Acute CVA with residual left hemiparesis and hemianopia, dysarthria, dysphagia. in vertebrobasillar distribution thought to be embolic Bubble study negative thoughts about loop recorder placement. bilateral thalamic, right occipital, right cerebellar secondary to bilateral vertebral, basal, intracranial and extracranial artery disease in the setting of prior history of smoking, diabetes and hypertension. The patient has exhibited significant confusion and has pulled his feeding tube, which is now being replaced by surgery if it is in the correct position. He is continued on aspirin, Plavix and Lipitor according to neurology for treatment of his stroke. Hypertension. fluctuating probably related to his sun downing , some agitation in the evenings. Currently on Lisinopril propralol and hydralazine, doxazocin Type 2 diabetes. Currently on Lispro insulin sliding scale. Hypoglycemic protocol and Levemir insulin. Encephalopathy due to CVA improving but still gets irritable in the evenings Has feeding tube. For insomnia on trazodone. Propranolol for agitation which may have a component of dysautonomia in setting of stroke Acute urinary retension with Jane in LAURA started on flomax bid. DVT prophylaxis in place. VS,Fishbone, I+O VS, Fishbone, I+O Vital Signs Date Time Temp Pulse Resp B/P (MAP) Pulse Ox O2 Delivery O2 Flow Rate FiO2 05/22/19 09:12 117/61 05/22/19 08:50 98.4 81 18 97 I&O- Last 24 Hours up to 6 AM 05/22/19 06:00 Intake Total 1110 ml Output Total 1850 ml Balance -740 ml GUME CHATTERJEE MD May 22, 2019 10:15
[2019-05-22 11:56] LABS: HEMATOCRIT 37.1 % (42.0-52.0); HEMOGLOBIN 12.3 g/dl (13.5-17.5); MEAN CORPUSCULAR HEMOGLOBIN 30.1 pg (27.0-33.0); MEAN CORPUSCULAR HGB CONC 33.2 g/dl (32.0-36.5); MEAN CORPUSCULAR VOLUME 90.9 fl (80.0-96.0); PLATELET COUNT, AUTOMATED 428 10^3/uL (150-450); RED BLOOD COUNT 4.08 10^6/uL (4.30-6.10); WHITE BLOOD COUNT 7.8 10^3/uL (4.0-10.0)
[2019-05-22] MEDS: FLUoxetine 20 MG CAP GT SCH (21:14)
[2019-05-22] MEDS: TAMSULOSIN 0.4 MG CAP PO SCH (21:14)
[2019-05-22] MEDS: traZODone 50 MG TAB GT SCH (21:15)
[2019-05-23 06:00] VITALS: BP 172/80
[2019-05-23 06:56] LABS: BASO # 0.1 10^3/uL (0.0-0.2); BASO % 0.6 % (0.0-1.0); EOS # 0.2 10^3/uL (0.0-0.5); EOS % 2.7 % (0.0-3.0); HEMATOCRIT 36.8 % (42.0-52.0); HEMOGLOBIN 12.2 g/dl (13.5-17.5); LYMPH # 2.3 10^3/uL (1.5-5.0); LYMPH % 25.8 % (24.0-44.0); MEAN CORPUSCULAR HEMOGLOBIN 30.1 pg (27.0-33.0); MEAN CORPUSCULAR HGB CONC 33.2 g/dl (32.0-36.5); MEAN CORPUSCULAR VOLUME 90.9 fl (80.0-96.0); MONO # 0.7 10^3/uL (0.0-0.8); MONO % 7.9 % (0.0-5.0); NEUTROPHILS # 5.6 10^3/uL (1.5-8.5); NEUTROPHILS % 62.7 % (36.0-66.0); PLATELET COUNT, AUTOMATED 414 10^3/uL (150-450); RED BLOOD COUNT 4.05 10^6/uL (4.30-6.10); WHITE BLOOD COUNT 8.9 10^3/uL (4.0-10.0)
[2019-05-23 07:22] LABS: BLOOD UREA NITROGEN 8 MG/DL (7-18); CALCIUM LEVEL 9.2 MG/DL (8.8-10.2); CARBON DIOXIDE LEVEL 32 MEQ/L (21-32); CHLORIDE LEVEL 104 MEQ/L (98-107); CREATININE FOR GFR 0.62 MG/DL (0.70-1.30); GLOMERULAR FILTRATION RATE > 60.0 (>49); GLUCOSE, FASTING 144 MG/DL (70-100); POTASSIUM SERUM 4.3 MEQ/L (3.5-5.1); SODIUM LEVEL 141 MEQ/L (136-145)
[2019-05-23] MEDS: guaiFENesin SYRUP 200 MG/10 ML UDC GT SCH ×2 (07:58→21:05)
[2019-05-23] MEDS: ASPIRIN 81 MG CHEW TABLET PEG SCH (07:59)
[2019-05-23] MEDS: DOXAZOSIN MESYLATE 1 MG TAB GT SCH (07:59)
[2019-05-23] MEDS: LANSOPRAZOLE SUSPENSION 30 MG/10 ML ORAL SYRINGE (FIRST-LANSOPRAZOLE) PEG SCH ×2 (07:59→21:06)
[2019-05-23] MEDS: ENOXAPARIN 40 MG/0.4 ML SYRINGE (J1650) SC SCH (08:03)
[2019-05-23] MEDS: ATORVASTATIN 20 MG TAB GT SCH (08:03)
[2019-05-23] MEDS: **hydrALAZINE** 10 MG TAB PO SCH ×4 (08:04→21:05)
[2019-05-23] MEDS: LISINOPRIL 10 MG TAB GT SCH (08:04)
[2019-05-23] MEDS: GLY OXIDE SSP SCH ×4 (08:05→21:16)
[2019-05-23] MEDS: HumaLOG INSULIN (NovoLOG) PER UNIT SC SCH ×4 (08:05→21:00)
[2019-05-23] MEDS: POLYVINYL ALCOHOL OPHTH SOLN 15 ML(LIQUITEARS) OU SCH ×4 (08:07→21:06)
[2019-05-23] MEDS: CLOPIDOGREL 75 MG TAB PO SCH (09:45)
[2019-05-23] MEDS ORDERED: BUPIVACAINE HCL 0.25% 30 ML VIAL ONE (09:53)
[2019-05-23] MEDS ORDERED: LIDOCAINE 1% SDV INJ 30 ML VIAL ONE (09:53)
[2019-05-23 14:00] VITALS: BP 124/67
--- NOTE | 2019-05-23 16:46 | REP ---
CT brain without contrast: History: Question change in size of hemorrhage. Comparison CT study is from May 21, 2019. CT findings: Bony calvarium remains intact. Vascular calcification is again noted in the distal carotid and vertebral artery distribution. There is mild generalized volume loss. Small low density areas are seen opposite one another bilaterally in the thalami consistent with recent nonhemorrhagic infarcts. These are unchanged in appearance. There is a large acute or subacute infarct involving the medial temporal lobe and occipital lobe on the right posterior cerebral artery territory as previously noted. The tiny petechial hemorrhage identified on yesterday's CT study is less conspicuous today. It is less hyperdense and unchanged in size. No new area of parenchymal hemorrhage is seen. No extra-axial fluid collection is observed. No new infarct is seen. Impression: Stable infarct pattern as above. Electronically Signed by Tomasz Schultz MD 05/23/2019 04:52 P
[2019-05-23 19:50] VITALS: BP 140/85
[2019-05-23] MEDS: FLUoxetine 20 MG CAP GT SCH (21:04)
[2019-05-23] MEDS: traZODone 50 MG TAB GT SCH (21:05)
[2019-05-23] MEDS: TAMSULOSIN 0.4 MG CAP PO SCH (21:06)
[2019-05-24 05:18] VITALS: BP 186/90
[2019-05-24] MEDS: DOXAZOSIN MESYLATE 1 MG TAB GT SCH (05:27)
[2019-05-24] MEDS: LISINOPRIL 10 MG TAB GT SCH ×2 (05:28→07:47)
[2019-05-24 06:15] VITALS: BP 170/86
--- NOTE | 2019-05-24 07:07 | CR ---
DATE OF CONSULTATION: 05/23/2019 REFERRING PHYSICIAN: Dr. Clara Moreno REASON FOR CONSULTATION: Stroke and petechial hemorrhage within the stroke. HISTORY OF PRESENT ILLNESS: Chucky Dunn is a 63-year-old man with history of hypertension and diabetes who had presented to [facility] on April 26, 2019 when he developed left-sided facial weakness, altered mental status and was found to be driving erratically and on the wrong side of the road. He was taken to [facility] and flown to [facility] in [place] for acute stroke. He was noted to have acute small multiple strokes in bilateral thalamus, right mid brain, right occipital and temporal region and left cerebellum. This was thought to be due to embolic disease. CTA of head and neck showed occlusion of right posterior cerebral artery with stenosis of bilateral vertebral artery. He was outside the window of tPA and mechanical thrombectomy. He was started on aspirin and Plavix, which was supposed to be continued for 90 days followed by aspirin only. The patient has dysphagia and a PEG tube was placed. His CT scan of head on May 07, 2019 showed no evidence of acute hemorrhage. 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 Echocardiogram showed ejection fraction 65-70%. EEG was unremarkable without epileptiform abnormalities. The patient himself is unable to provide any history. The patient's brother was sitting on bedside during my visit and provided most of the history. History was also obtained from electronic medical records. According to nurses, the patient fell three times over last one week without head injuries. He has significantly decreased vision on left side of visual morelos. He also has trouble with vision on right side as well. His speech appears paraphasic and he seems to have mixed aphasia. He had a repeat CT scan of head on May 21, 2019 which showed tiny petechial hemorrhage in his stroke in right occipital and temporal head region. His repeat CT scan of head showed less prominent seen petechial hemorrhage within the stroke. The patient complains of off-and-on headaches. He states that he has difficulty sleeping at night. He complains of neck and back pain. PAST MEDICAL HISTORY: Hypertension. Diabetes. Recent strokes for which she was admitted at [facility]. CURRENT MEDICATIONS: - aspirin 81 mg p.o. daily - Plavix 75 mg p.o. daily - Lipitor 80 mg p.o. daily - doxazosin 2 mg p.o. daily - Lovenox 40 mg subcutaneous daily - insulin lispro sliding scale - melatonin 5 mg p.o. q.h.s. - Seroquel 25 mg p.o. q.8 h p.r.n. for agitation - Prozac 20 mg p.o. daily - trazodone 25 mg p.o. q.h.s. - Norvasc 5 mg p.o. daily - hydralazine 40 mg p.o. q.i.d. - Flomax 0.8 mg p.o. daily - lisinopril 10 mg p.o. daily ALLERGIES: None. SOCIAL HISTORY: He denies smoking, alcohol or illicit drugs. FAMILY HISTORY: He has six children. REVIEW OF SYSTEMS: All systems were reviewed and found to be noncontributory except as mentioned history present illness. PHYSICAL EXAMINATION: Temperature 98.3, pulse 63, respiratory rate 18, blood pressure 124/67, 97% saturation on room air. Heart: Regular rate and rhythm. Lungs: Clear to auscultation. Abdomen: Soft, nontender, nondistended. No pedal edema. No musculoskeletal abnormalities. No rash. No signs of meningeal irritation. The patient is awake, alert, oriented to self and city. He is unable to tell me day, date, month, year, name of president. His speech appears to have mixed aphasia with paraphasic errors. Memory could not be tested. Extraocular muscles are intact. No facial weakness. Tongue and uvula are midline. He has significant visual field deficit. He has deviation of eyes to right side. He has significantly decreased vision. He has past pointing on [id number] testing. He has mild nystagmus. 5/5 strength in all extremities. Deep tendon flexes 2+ throughout. Sensory examination could not be performed. His gait is ataxic. ASSESSMENT: 1. Right occipital and temporal ischemic stroke due to right posterior cerebral artery occlusion. 2. Ischemic strokes in bilateral thalamus right mid brain and left cerebellum. 3. 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 4. 2.8 mm left ICA aneurysm. 5. Petechial hemorrhage within the right occipital and temporal lobe ischemic stroke. PLAN: 1. Discontinue aspirin for 1 week and continue Plavix 75 mg p.o. daily. Dual antiplatelet therapy does increase the risk of gastrointestinal (GI) and intracranial hemorrhage. 2. Continue Lipitor 80 mg p.o. daily. 3. Physical and occupational therapy and physical and speech rehabilitation. 4. Keep systolic blood pressure below 140 and diastolic blood pressure below 90. He has already been started on Norvasc and hydralazine to optimize his blood pressure. 5. CT scan of head in the next 48 hours.
[2019-05-24] MEDS: HumaLOG INSULIN (NovoLOG) PER UNIT SC SCH ×4 (07:30→19:54)
[2019-05-24 07:45] VITALS: BP 146/92
[2019-05-24] MEDS: guaiFENesin SYRUP 200 MG/10 ML UDC GT SCH (07:46)
[2019-05-24] MEDS: CLOPIDOGREL 75 MG TAB PO SCH (07:46)
[2019-05-24] MEDS: ATORVASTATIN 20 MG TAB GT SCH (07:47)
[2019-05-24] MEDS: LANSOPRAZOLE SUSPENSION 30 MG/10 ML ORAL SYRINGE (FIRST-LANSOPRAZOLE) PEG SCH (07:48)
[2019-05-24] MEDS: **hydrALAZINE** 10 MG TAB PO SCH ×4 (07:48→20:04)
[2019-05-24] MEDS: POLYVINYL ALCOHOL OPHTH SOLN 15 ML(LIQUITEARS) OU SCH ×4 (07:56→20:06)
[2019-05-24] MEDS: GLY OXIDE SSP SCH ×4 (07:56→20:07)
[2019-05-24 11:14] VITALS: BP 122/60
--- NOTE | 2019-05-24 12:07 | IPNPDOC ---
PM&R Progress Note DATE OF SERVICE: May 23, 2019 Xray Tech Progress Note Subjective: Patient fell over the weekend, seen today in therapy stating he is feeling well. He denies headache or dizziness. REVIEW OF SYSTEMS: The following is a completed review of systems and has been reviewed. Review of systems otherwise unremarkable. PAIN: Patient self reports no pain EYES: +visual deficit EARS, NOSE, & THROAT:+dysphagia CARDIOVASCULAR: Denies chest pain or palpitations PULMONARY: Denies shortness of breath GASTROINTESTINAL: Denies constipation/diarrhea GENITOURINARY: +urinary retention (gradually improving) MUSCULOSKELETAL: no joint pain/deformities NEUROLOGICAL:+stroke HEMATOLOGICAL: no easy bruising SKIN: PeG site PSYCHIATRIC: +confused (improving) All other review of systems found to be negative. PHYSICAL EXAMINATION: VITAL SIGNS: Please see below. GENERAL: Pleasant and cooperative. No acute distress. HEENT: PERRL. Extraocular movements impaired, eyes fixed inferiorly and to the right, able to cross midline, Clear conjunctiva CARDIOVASCULAR: Regular rate and rhythm. No murmurs, rubs, or gallops LUNGS: Clear to auscultation bilaterally. No wheezes. No rhonchi ABDOMEN: Soft, nontender, nondistended. Positive bowel sounds. Normal active bowel sounds +PEG, no guarding NEUROLOGICAL: Alert and oriented to self only . 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 4/5 strength in left lower extremity. SKIN:no rash ASSESSMENT:63-year-old M with past medical history of HTN and DM who presents status post stroke PLAN: 1. 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 Neuro: s/p bilateral vertebrobasilar infarcts thought to be due to emboli, with resulting dysphagia, aphasia, ocular deficits, and left sided weakness -CT scan on 05/21/19 ordered by medicine showing new petechial hemorrhage in the right ELECTRICAL CAD TECHNICIAN territory, holding ASA, repeat CTH ordered, discussed case with Dr. Wilkins who is consulted and will advise -Prozac for motor recovery 3. Cardiac: pmh HTN, c/u BP meds and adjust prn, medicine consulted to assist in management -vacillating BPs, c/u hyrdralazine 40mg, will increase to QID with hold parameters, c/u lisinopril, norvasc added -will discuss possibility of in-house loop recorder placement with cardiology for possible cryptogenic stroke 4. Resp: encourage incentive spirometry, admission CXR +left lower lobe infiltrate, s/p Levofloxacin, Duonebs and Guaifenesin- no leukocytosis at this point, will continue to monitor 5. Endo: pmh DM, cu ISS FS ac and qhs 6. : urinary retention with Jane placed per [facility] urology, jane removed, c/u Flomax for urinary retention increased to 0.8mg qHS and continue bladder scan with IC-still retaining -collect UA to r/o infection- UA negative no Cx reflex 7. DVT ppx: Lovenox and TEDs, admission Dopplers negative 8. GI ppx: Lansoprazole BID -patient pulled his PEG 05/12/19 and replaced at bedside by surgery, then replaced in OR on 05/13/19, mild leukocytosis resolved, abdomen soft, afebrile, will continue to monitor for peritonitis-stable 9. Nutrition: PEG in place, however diet advanced to po, eating well 10. Skin: turn q2h and monitor for skin break down 11. Psych: episodes of agitation, trazodone ordered prn, insomnia c/u trazodone 25mg qHS standing -c/u Propranolol 10 mg TID to assist with agitation which may have a component of dysautonomia in setting of stroke -may use Ativan IM prn agitation if trazodone does not work -avoid overstimulating and adjust environment prn 12. Dispo: 06/03/19 to home with 24-7 Allergies Coded Allergies: No Known Allergies (Unverified , 05/10/19) Vital Signs Vital Signs Date Time Temp Pulse Resp B/P (MAP) Pulse Ox O2 Delivery O2 Flow Rate FiO2 05/24/19 07:47 146/92 05/24/19 05:18 97.2 73 18 97 Laboratory Data Labs 24H Laboratory Tests 2 05/23/19 17:01: Bedside Glucose (Misc Panel) 163H 05/23/19 19:46: Bedside Glucose (Misc Panel) 175H 05/24/19 06:12: Bedside Glucose (Misc Panel) 185H 05/24/19 10:12: Bedside Glucose (Misc Panel) 192H Microbiology Microbiology 05/21/19 Stool Occult Blood (SUSAN) - Final, Complete Current Medications Current Medications Current Medications Medications (Trade) Dose Ordered Sig/Maricruz Route PRN Reason Start Time Stop Time Status Last Admin Dose Admin Acetaminophen (Tylenol Suspension) 650 mg Q4HP PRN GT PAIN OR FEVER 05/10/19 12:45 05/22/19 00:13 Albuterol/ Ipratropium (Duoneb (Ipr 0.5mg/Alb 2.5mg)) 3 ml RBID NEB 05/11/19 08:00 05/12/19 12:31 DC 05/12/19 07:28 Amlodipine Besylate (Norvasc) 2.5 mg QHS PO 05/20/19 21:00 05/23/19 06:46 DC 05/22/19 18:33 Amlodipine Besylate (Norvasc) 5 mg DAILY@1700 PO 05/23/19 17:00 05/23/19 17:36 Artificial Tears (Akwa Tears) 2 drop QID OU 05/10/19 13:00 05/24/19 07:56 Aspirin (Aspirin Chewable) 81 mg DAILY PEG 05/11/19 09:00 05/23/19 18:08 DC 05/23/19 07:59 Atorvastatin Calcium (Lipitor) 80 mg DAILY GT 05/11/19 09:00 05/24/19 07:47 Carbamide Peroxide (Debrox) 5 drop PCHS XX 05/10/19 18:30 05/14/19 18:29 Cancel Clopidogrel Bisulfate (PLAVix) 75 mg DAILY PO 05/11/19 09:00 05/24/19 07:46 Dextrose (Dextrose 50%) 25 ml ASDIRECTED PRN IV SEE LABEL COMMENTS 05/10/19 12:45 05/18/19 12:25 DC Dextrose (Dextrose 50%) 25 ml ASDIRECTED PRN IV SEE LABEL COMMENTS 05/17/19 10:30 Dextrose/Sodium Chloride 1,000 ml @ 75 mls/hr [id number] IV 05/12/19 18:45 05/14/19 13:16 DC 05/14/19 06:30 Doxazosin Mesylate (Cardura) 2 mg DAILY GT 05/12/19 09:00 05/24/19 05:27 Doxazosin Mesylate (Cardura) 2 mg DAILY PO 05/11/19 09:00 05/11/19 11:43 DC 05/11/19 07:58 Enoxaparin Sodium (Lovenox) 40 mg DAILY SC 05/11/19 09:00 05/23/19 15:34 DC 05/23/19 08:03 Fluoxetine HCl (PROzac) 20 mg QHS GT 05/11/19 21:00 05/23/19 21:04 Glucagon (Glucagon) 1 mg ASDIRECTED PRN SC SEE LABEL COMMENTS 05/10/19 12:45 05/18/19 12:25 DC Glucagon (Glucagon) 1 mg ASDIRECTED PRN SC SEE LABEL COMMENTS 05/17/19 10:30 Glucose (Glucose) 16 GM ASDIRECTED PRN PO SEE LABEL COMMENTS 05/10/19 12:45 05/18/19 12:25 DC Glucose (Glucose) 16 GM ASDIRECTED PRN PO SEE LABEL COMMENTS 05/17/19 10:30 Guaifenesin (Robitussin) 10 ml BID GT 05/11/19 09:00 05/24/19 07:46 Home Med (Med Rec Complete!) ASDIRECTED XX 05/10/19 13:30 05/10/19 13:30 DC Hydralazine HCl (Apresoline) 20 mg TID PO 05/16/19 09:00 05/18/19 16:30 DC 05/18/19 16:16 Hydralazine HCl (Apresoline) 40 mg QID PO 05/23/19 13:00 05/24/19 07:48 Hydralazine HCl (Apresoline) 40 mg TID PO 05/18/19 21:00 05/23/19 12:05 DC 05/23/19 08:04 Hydralazine HCl (Apresoline) 50 mg TID PO 05/19/19 09:00 05/19/19 17:00 DC 05/19/19 08:29 Insulin Detemir (Levemir Insulin) 5 units DAILY@0000 ND 05/12/19 00:00 05/17/19 10:31 DC 05/16/19 00:10 [facility] 05/[facility] 21:00 05/11/19 11:56 DC Insulin Human Lispro (HumaLOG INSULIN) SEE PROTOCOL TABLE AC ND 05/10/19 17:30 05/11/19 11:46 DC 05/11/19 07:56 Insulin Human Lispro (HumaLOG INSULIN) SEE PROTOCOL TABLE AC ND 05/17/19 07:30 05/23/19 17:35 Insulin Human Lispro (HumaLOG INSULIN) [facility] 05/11/19 12:00 05/17/19 10:31 DC 05/17/19 06:23 Insulin Human Lispro (HumaLOG INSULIN) SEE PROTOCOL TABLE QHS ND 05/10/19 21:00 05/11/19 11:46 DC Insulin Human Lispro (HumaLOG INSULIN) SEE PROTOCOL TABLE QHS ND 05/17/19 21:00 Lansoprazole (First-Lansoprazole Oral Suspension) 30 mg BID PEG 05/11/19 21:00 05/24/19 07:48 Lansoprazole (First-Lansoprazole Oral Suspension) 30 mg DAILY PEG 05/10/19 09:00 05/11/19 11:46 DC 05/11/19 07:57 Levofloxacin (Levaquin) 750 mg DAILY@06 05/11/19 10:30 05/17/19 06:01 DC 05/17/19 06:23 Lidocaine/ Diphenhydr/Alum/ Mg/Simeth (Magic Mouthwash) 5ml AC [facility] 05/11/19 07:30 05/11/19 11:43 DC 05/11/19 07:54 Lisinopril (Prinivil) 5 mg DAILY GT 05/12/19 09:00 05/12/19 11:05 DC 05/12/19 09:31 Lisinopril (Prinivil) 5 mg DAILY PO 05/11/19 09:00 05/11/19 11:43 DC 05/11/19 07:59 Lisinopril (Prinivil) 10 mg DAILY GT 05/21/19 09:00 05/24/19 09:40 DC 05/24/19 07:47 Lisinopril (Prinivil) 20 mg DAILY GT 05/13/19 09:00 05/20/19 10:38 DC 05/20/19 08:54 Lisinopril (Prinivil) 20 mg QHS GT 05/24/19 21:00 Lorazepam (Ativan) 1 mg Q6HP PRN IM AGITATION 05/12/19 09:15 05/23/19 09:00 DC Miscellaneous (Unresolved Clarification Entry) SEE LABEL COMMENTS DAILY XX 05/22/19 09:00 05/22/19 15:57 DC Miscellaneous (Unresolved Patient Own Med Order) SEE LABEL COMMENTS DAILY XX 05/12/19 09:00 05/15/19 14:52 DC Morphine Sulfate (Roxanol) 5 mg Q2HP PRN SL PAIN 05/12/19 16:00 05/18/19 11:04 DC 05/12/19 16:23 Patient Own Medication (Patient'S Own Med) SWISH AND SPIT 5 DROPS... PCHS SSP 05/10/19 18:30 05/15/19 18:17 DC Patient Own Medication (Patient'S Own Med) SWISH AND SPIT 5 DROPS... HS SSP 05/15/19 18:30 05/24/19 07:56 Propranolol HCl (Inderal Liquid) 10 mg TID PO 05/11/19 21:00 05/20/19 10:38 DC 05/20/19 08:52 Tamsulosin HCl (Flomax) 0.4 mg BID PO 05/18/19 21:00 05/20/19 10:38 DC 05/20/19 08:54 Tamsulosin HCl (Flomax) 0.4 mg DAILY PO 05/18/19 10:00 05/18/19 12:59 DC 05/18/19 10:20 Tamsulosin HCl (Flomax) 0.4 mg QHS PO 05/20/19 21:00 05/22/19 21:56 DC 05/22/19 21:14 Tamsulosin HCl (Flomax) 0.8 mg QHS PO 05/23/19 21:00 05/23/19 21:06 Trazodone HCl (Desyrel) 25 mg Q6HP PRN GT AGITATION 05/11/19 11:45 05/11/19 18:36 Trazodone HCl (Desyrel) 25 mg Q6HP PRN PO AGITATION 05/10/19 12:45 05/11/19 11:43 DC Trazodone HCl (Desyrel) 25 mg QHS GT 05/11/19 21:00 05/12/19 09:07 DC 05/11/19 20:53 Trazodone HCl (Desyrel) 25 mg QHS PO 05/10/19 21:00 05/11/19 11:43 DC 05/10/19 20:39 Trazodone HCl (Desyrel) 50 mg QHS GT 05/12/19 21:00 05/23/19 21:05 SHARAN HOOVER MD May 24, 2019 12:06
--- NOTE | 2019-05-24 12:14 | IPNPDOC ---
PM&R Progress Note DATE OF SERVICE: May 24, 2019 [employer] Progress Note Subjective: Patient seen after therapy where he was noted to have an episode of left arm shaking while standing in the parallel bars and appeared more confused for about a minute. Patients vitals were within normal limits, he was brought back to the room, stating he felt ok, denying headache or dizziness. On exam he did not have a tremor/shake in his left arm, able to respond to commands, appeared awake and alert. REVIEW OF SYSTEMS: The following is a completed review of systems and has been reviewed. Review of systems otherwise unremarkable. PAIN: Patient self reports no pain EYES: +visual deficit EARS, NOSE, & THROAT:+dysphagia CARDIOVASCULAR: Denies chest pain or palpitations PULMONARY: Denies shortness of breath GASTROINTESTINAL: Denies constipation/diarrhea GENITOURINARY: +urinary retention (gradually improving) MUSCULOSKELETAL: no joint pain/deformities NEUROLOGICAL:+stroke HEMATOLOGICAL: no easy bruising SKIN: PeG site PSYCHIATRIC: +confused (improving) All other review of systems found to be negative. PHYSICAL EXAMINATION: VITAL SIGNS: Please see below. GENERAL: Pleasant and cooperative. No acute distress. HEENT: PERRL. Extraocular movements impaired, eyes fixed inferiorly and to the right, able to cross midline, Clear conjunctiva CARDIOVASCULAR: Regular rate and rhythm. No murmurs, rubs, or gallops LUNGS: Clear to auscultation bilaterally. No wheezes. No rhonchi ABDOMEN: Soft, nontender, nondistended. Positive bowel sounds. Normal active bowel sounds +PEG, no guarding NEUROLOGICAL: Alert and oriented to self only . 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 4/5 strength in left lower extremity. SKIN:no rash ASSESSMENT:63-year-old M with past medical history of HTN and DM who presents status post stroke PLAN: 1. 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 Wilkins will hold ASa for 7 days and rescan in 48h- neuro recs appreciated -patient with left arm tremor today in therapy, EEG ordered to r/o seizure activity, patient currently neurologically stable -Prozac for motor recovery 3. Cardiac: pmh HTN, c/u BP meds and adjust prn, medicine consulted to assist in management -vacillating BPs, c/u hyrdralazine 40mg, will increase to QID with hold parameters, c/u lisinopril, norvasc added -renal US ordered this am to rule out renal artery stenosis -will discuss possibility of in-house loop recorder placement with cardiology for possible cryptogenic stroke 4. Resp: encourage incentive spirometry, admission CXR +left lower lobe infiltrate, s/p Levofloxacin, Duonebs and Guaifenesin- no leukocytosis at this point, will continue to monitor 5. Endo: pmh DM, cu ISS FS ac and qhs 6. : urinary retention with Jane placed per [facility] urology, jane removed, c/u Flomax for urinary retention increased to 0.8mg qHS- will recheck UA and restart jane as retention may contributing to elevated BPs -admission UA negative 7. DVT ppx: Lovenox and TEDs, admission Dopplers negative 8. GI ppx: Lansoprazole BID -patient pulled his PEG 05/12/19 and replaced at bedside by surgery, then replac ed in OR on 05/13/19, mild leukocytosis resolved, abdomen soft, afebrile, will continue to monitor for peritonitis-stable 9. Nutrition: PEG in place, however diet advanced to po, eating well 10. Skin: turn q2h and monitor for skin break down 11. Psych: episodes of agitation, trazodone ordered prn, insomnia c/u trazodone 25mg qHS standing -holding Propranolol for now for intermittent drops in BP, agitation improving overall -may use Ativan IM prn agitation if trazodone does not work -avoid overstimulating and adjust environment prn 12. Dispo: 06/03/19 to home with 24-7 Allergies Coded Allergies: No Known Allergies (Unverified , 05/10/19) Vital Signs Vital Signs Date Time Temp Pulse Resp B/P (MAP) Pulse Ox O2 Delivery O2 Flow Rate FiO2 05/24/19 07:47 146/92 05/24/19 05:18 97.2 73 18 97 Laboratory Data Labs 24H Laboratory Tests 2 05/23/19 17:01: Bedside Glucose (Misc Panel) 163H 05/23/19 19:46: Bedside Glucose (Misc Panel) 175H 05/24/19 06:12: Bedside Glucose (Misc Panel) 185H 05/24/19 10:12: Bedside Glucose (Misc Panel) 192H Microbiology Microbiology 05/21/19 Stool Occult Blood (SUSAN) - Final, Complete Current Medications Current Medications Current Medications Medications (Trade) Dose Ordered Sig/Maricruz Route PRN Reason Start Time Stop Time Status Last Admin Dose Admin Acetaminophen (Tylenol Suspension) 650 mg Q4HP PRN GT PAIN OR FEVER 05/10/19 12:45 05/22/19 00:13 Albuterol/ Ipratropium (Duoneb (Ipr 0.5mg/Alb 2.5mg)) 3 ml RBID NEB 05/11/19 08:00 05/12/19 12:31 DC 05/12/19 07:28 Amlodipine Besylate (Norvasc) 2.5 mg QHS PO 05/20/19 21:00 05/23/19 06:46 DC 05/22/19 18:33 Amlodipine Besylate (Norvasc) 5 mg DAILY@1700 PO 05/23/19 17:00 05/23/19 17:36 Artificial Tears (Akwa Tears) 2 drop QID OU 05/10/19 13:00 05/24/19 07:56 Aspirin (Aspirin Chewable) 81 mg DAILY PEG 05/11/19 09:00 05/23/19 18:08 DC 05/23/19 07:59 Atorvastatin Calcium (Lipitor) 80 mg DAILY GT 05/11/19 09:00 05/24/19 07:47 Carbamide Peroxide (Debrox) 5 drop PCHS XX 05/10/19 18:30 05/14/19 18:29 Cancel Clopidogrel Bisulfate (PLAVix) 75 mg DAILY PO 05/11/19 09:00 05/24/19 07:46 Dextrose (Dextrose 50%) 25 ml ASDIRECTED PRN IV SEE LABEL COMMENTS 05/10/19 12:45 05/18/19 12:25 DC Dextrose (Dextrose 50%) 25 ml ASDIRECTED PRN IV SEE LABEL COMMENTS 05/17/19 10:30 Dextrose/Sodium Chloride 1,000 ml @ 75 mls/hr [id number] IV 05/12/19 18:45 05/14/19 13:16 DC 05/14/19 06:30 Doxazosin Mesylate (Cardura) 2 mg DAILY GT 05/12/19 09:00 05/24/19 05:27 Doxazosin Mesylate (Cardura) 2 mg DAILY PO 05/11/19 09:00 05/11/19 11:43 DC 05/11/19 07:58 Enoxaparin Sodium (Lovenox) 40 mg DAILY SC 05/11/19 09:00 05/23/19 15:34 DC 05/23/19 08:03 Fluoxetine HCl (PROzac) 20 mg QHS GT 05/11/19 21:00 05/23/19 21:04 Glucagon (Glucagon) 1 mg ASDIRECTED PRN SC SEE LABEL COMMENTS 05/10/19 12:45 05/18/19 12:25 DC Glucagon (Glucagon) 1 mg ASDIRECTED PRN SC SEE LABEL COMMENTS 05/17/19 10:30 Glucose (Glucose) 16 GM ASDIRECTED PRN PO SEE LABEL COMMENTS 05/10/19 12:45 05/18/19 12:25 DC Glucose (Glucose) 16 GM ASDIRECTED PRN PO SEE LABEL COMMENTS 05/17/19 10:30 Guaifenesin (Robitussin) 10 ml BID GT 05/11/19 09:00 05/24/19 07:46 Home Med (Med Rec Complete!) ASDIRECTED XX 05/10/19 13:30 05/10/19 13:30 DC Hydralazine HCl (Apresoline) 20 mg TID PO 05/16/19 09:00 05/18/19 16:30 DC 05/18/19 16:16 Hydralazine HCl (Apresoline) 40 mg QID PO 05/23/19 13:00 05/24/19 07:48 Hydralazine HCl (Apresoline) 40 mg TID PO 05/18/19 21:00 05/23/19 12:05 DC 05/23/19 08:04 Hydralazine HCl (Apresoline) 50 mg TID PO 05/19/19 09:00 05/19/19 17:00 DC 05/19/19 08:29 Insulin Detemir (Levemir Insulin) 5 units DAILY@0000 PA 05/12/19 00:00 05/17/19 10:31 DC 05/16/19 00:10 [facility]ulin [facility] ([facility]) [facility] 21:00 05/11/19 11:56 DC Insulin Human Lispro (HumaLOG INSULIN) SEE PROTOCOL TABLE AC PA 05/10/19 17:30 05/11/19 11:46 DC 05/11/19 07:56 Insulin Human Lispro (HumaLOG INSULIN) SEE PROTOCOL TABLE AC PA 05/17/19 07:30 05/23/19 17:35 Insulin Human Lispro (HumaLOG INSULIN) SEE PROTOCOL TABLE [facility] 05/11/19 12:00 05/17/19 10:31 DC 05/17/19 06:23 Insulin Human Lispro (HumaLOG INSULIN) [facility]OCOL [facility] 21:00 05/11/19 11:46 DC Insulin Human Lispro (HumaLOG INSULIN) [facility]OTOCOL TABLE [facility] 05/17/19 21:00 Lansoprazole (First-Lansoprazole Oral Suspension) 30 mg BID PEG 05/11/19 21:00 05/24/19 07:48 Lansoprazole (First-Lansoprazole Oral Suspension) 30 mg DAILY PEG 05/10/19 09:00 05/11/19 11:46 DC 05/11/19 07:57 Levofloxacin (Levaquin) 750 mg DAILY@06 05/11/19 10:30 05/17/19 06:01 DC 05/17/19 06:23 Lidocaine/ Diphenhydr/Alum/ Mg/Simeth (Magic Mouthwash) 5ml AC SSP 05/11/19 07:30 05/11/19 11:43 DC 05/11/19 07:54 Lisinopril (Prinivil) 5 mg DAILY GT 05/12/19 09:00 05/12/19 11:05 DC 05/12/19 09:31 Lisinopril (Prinivil) 5 mg DAILY PO 05/11/19 09:00 05/11/19 11:43 DC 05/11/19 07:59 Lisinopril (Prinivil) 10 mg DAILY GT 05/21/19 09:00 05/24/19 09:40 DC 05/24/19 07:47 Lisinopril (Prinivil) 20 mg DAILY GT 05/13/19 09:00 05/20/19 10:38 DC 05/20/19 08:54 Lisinopril (Prinivil) 20 mg QHS GT 05/24/19 21:00 Lorazepam (Ativan) 1 mg Q6HP PRN IM AGITATION 05/12/19 09:15 05/23/19 09:00 DC Miscellaneous (Unresolved Clarification Entry) SEE LABEL COMMENTS DAILY XX 05/22/19 09:00 05/22/19 15:57 DC Miscellaneous (Unresolved Patient Own Med Order) SEE LABEL COMMENTS DAILY XX 05/12/19 09:00 05/15/19 14:52 DC Morphine Sulfate (Roxanol) 5 mg Q2HP PRN SL PAIN 05/12/19 16:00 05/18/19 11:04 DC 05/12/19 16:23 Patient Own Medication (Patient'S Own Med) SWISH AND SPIT 5 DROPS... [facility] 05/10/19 18:30 05/15/19 18:17 DC Patient Own Medication (Patient'S Own Med) SWISH AND SPIT 5 DROPS... [facility] 05/15/19 18:30 05/24/19 07:56 Propranolol HCl (Inderal Liquid) 10 mg TID PO 05/11/19 21:00 05/20/19 10:38 DC 05/20/19 08:52 Tamsulosin HCl (Flomax) 0.4 mg BID PO 05/18/19 21:00 05/20/19 10:38 DC 05/20/19 08:54 Tamsulosin HCl (Flomax) 0.4 mg DAILY PO 05/18/19 10:00 05/18/19 12:59 DC 05/18/19 10:20 Tamsulosin HCl (Flomax) 0.4 mg QHS PO 05/20/19 21:00 05/22/19 21:56 DC 05/22/19 21:14 Tamsulosin HCl (Flomax) 0.8 mg QHS PO 05/23/19 21:00 05/23/19 21:06 Trazodone HCl (Desyrel) 25 mg Q6HP PRN GT AGITATION 05/11/19 11:45 05/11/19 18:36 Trazodone HCl (Desyrel) 25 mg Q6HP PRN PO AGITATION 05/10/19 12:45 05/11/19 11:43 DC Trazodone HCl (Desyrel) 25 mg QHS GT 05/11/19 21:00 05/12/19 09:07 DC 05/11/19 20:53 Trazodone HCl (Desyrel) 25 mg QHS PO 05/10/19 21:00 05/11/19 11:43 DC 05/10/19 20:39 Trazodone HCl (Desyrel) 50 mg QHS GT 05/12/19 21:00 05/23/19 21:05 SHARAN HOOVER MD May 24, 2019 12:14
[2019-05-24 12:29] LABS: BASO % 0.4 % (0.0-1.0); EOS # 0.1 10^3/uL (0.0-0.5); EOS % 1.8 % (0.0-3.0); HEMATOCRIT 35.8 % (42.0-52.0); LYMPH # 1.4 10^3/uL (1.5-5.0); MEAN CORPUSCULAR HEMOGLOBIN 30.3 pg (27.0-33.0); MEAN CORPUSCULAR HGB CONC 33.5 g/dl (32.0-36.5); MEAN CORPUSCULAR VOLUME 90.4 fl (80.0-96.0); MONO # 0.6 10^3/uL (0.0-0.8); MONO % 9.1 % (0.0-5.0); NEUTROPHILS # 4.5 10^3/uL (1.5-8.5); NEUTROPHILS % 67.4 % (36.0-66.0); PLATELET COUNT, AUTOMATED 376 10^3/uL (150-450); RED BLOOD COUNT 3.96 10^6/uL (4.30-6.10); WHITE BLOOD COUNT 6.7 10^3/uL (4.0-10.0)
[2019-05-24 13:14] LABS: ALBUMIN 3.1 GM/DL (3.2-5.2); ALT/SGPT 37 U/L (12-78); BILIRUBIN,TOTAL 0.2 MG/DL (0.2-1.0); BLOOD UREA NITROGEN 8 MG/DL (7-18); CALCIUM LEVEL 9.3 MG/DL (8.8-10.2); CARBON DIOXIDE LEVEL 33 MEQ/L (21-32); CHLORIDE LEVEL 103 MEQ/L (98-107); CREATININE FOR GFR 0.61 MG/DL (0.70-1.30); GLOMERULAR FILTRATION RATE > 60.0 (>49); GLUCOSE, FASTING 189 MG/DL (70-100); POTASSIUM SERUM 4.5 MEQ/L (3.5-5.1); PROLACTIN 4.6 NG/ML (2.1-17.7); SODIUM LEVEL 139 MEQ/L (136-145); TOTAL PROTEIN 6.4 GM/DL (6.4-8.2)
--- NOTE | 2019-05-24 13:36 | REP ---
RENAL ULTRASOUND WITH DUPLEX DOPPLER RENAL ARTERY EVALUATION: Real-time ultrasound evaluation of the kidneys performed and demonstrates both kidneys to be normal in size and echotexture, right kidney measuring 12.4 x 5.5 x 5.6 cm and left kidney 11.9 x 6.3 x 5.4 cm. There is slight dilatation of the renal pelvis bilaterally. There is a very minimal caliceal dilatation bilaterally. No renal mass is seen. With Doppler evaluation a left ureteral jet is visualized while a right ureteral jet could not be seen. Real-time ultrasound evaluation and duplex Doppler interrogation of bilateral renal arteries is performed. Peak systolic velocity of the abdominal aorta at the level of the renal artery is 69.4 cm/s. Peak systolic velocity of the main right renal artery is 113 cm/s, renal to aortic ratio 1.6. Resistive indices are measured in the upper, middle, and lower thirds of the right kidney and range between 0.76 and 0.79. Acceleration times range between 0.048 and 0.079. Peak systolic velocity of the main left renal artery is 110 cm/s, renal to aortic ratio 1.6. Resistive indices left kidney range between 0.79 and 0.82. Acceleration times range between 0.036 and 0.052. IMPRESSION: Very mild dilatation of the renal pelvis bilaterally. This may indicate a small extrarenal pelvis bilaterally. There is no compelling duplex Doppler sonographic evidence of significant renal artery stenosis bilaterally. Electronically Signed by Yash Velázquez MD 05/25/2019 04:17 P
[2019-05-24 15:00] VITALS: BP 117/56
[2019-05-24] MEDS ORDERED: ACETAMINOPHEN 325 MG/10.15 ML UDC PO PRN (16:00)
[2019-05-24] MEDS ORDERED: traZODone 25MG PER 1/2 TABLET PO PRN (16:00)
--- NOTE | 2019-05-24 18:10 | EEG ---
DATE OF PROCEDURE: 05/24/2019 REFERRING PHYSICIAN: Dr. Clara Moreno DIAGNOSIS: Seizure. EEG NUMBER: [id number] HISTORY: The patient is a 63-year-old man with a history of right occipital, temporal, bilateral thalamic, right mid brain and left cerebellar ischemic strokes with tiny petechial hemorrhage within the stroke who had an episode of left arm shaking and confusion lasting for 1 minute. This EEG was done to rule out epileptic potential. He is currently taking Plavix, Lipitor, Seroquel, trazodone, Prozac, etc. TECHNICAL DESCRIPTION: This digital EEG was recorded by 21 scalp, ear and two EKG electrodes and was reviewed in bipolar and referential montages following reformatting in 10-20 international electrode placement system. INTERPRETATION: The patient was noted to be in awake and drowsy states during this EEG. Resting awake background rhythm consisted of 7-8 Hz theta activity measuring 15-20 microvolts in amplitude, which was symmetric bilaterally. No sleep was achieved. Hyperventilation could not be performed. Photic stimulation remained unremarkable. EKG revealed normal sinus rhythm. Intermittent right frontal, temporal and parietal 3-4 Hz theta activity was noted lasting for 2-4 seconds. No clear epileptiform abnormalities were seen. No relevant clinical activity was noted. CONCLUSION: This EEG in awake and drowsy states is abnormal due to presence of mild generalized slowing and right frontal, temporal and parietal intermittent focal slowing consistent with focal cortical structural or functional abnormality. No clear epileptiform abnormalities were seen. In some patients with focal seizures, focal slowing may be the only abnormality apparent on scalp EEG. Clinical correlation is recommended.
[2019-05-24] MEDS ORDERED: levETIRAcetam ORAL SOLUTION 500 MG/5 ML UDC GT SCH (18:15)
--- NOTE | 2019-05-24 19:01 | IPN ---
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 Patient was sent for repeat CT of the head yesterday, which showed petechial hemorrhage. Patient had no recurrent episodes throughout the day today. Per Dr. Wilkins, the patient should not be started on any antiepileptic medications currently. Electroencephalogram (EEG) has been performed and will be read this evening. Will repeat CT of the head tomorrow regarding the petechial hemorrhage. Renal ultrasound that was performed today showed no evidence of renal artery stenosis. Patient remains with some expressive aphasia, unable to provide a full review of systems today. He is able to provide his name, is disoriented to time and place and unable to answer any questions. He is following commands, though, and has purposeful movements. OBJECTIVE: Physical Exam: Vital Signs: Temperature 97.6, pulse 71, respiratory rate 18, blood pressure 117/56, 94% on room air. Generally, patient is awake, alert, oriented to his name only. He is able to state his full name, Chucky Dunn. He does not know where he is, thinks that he is in [place] and is disoriented to date and time. Patient does follow commands. He continues to have persistent expressive aphasia. His tongue is midline. His eyes deviated to the right. Unable to perform [id number] testing with significant dysmetria. Gait was not tested. Strength is 5/5 times four extremities. Lungs are clear to auscultation. No wheezing, rales or rhonchi. Heart: S1, S2, sinus. Abdomen is soft, nontender, nondistended. Positive bowel sounds. No rebound or guarding. Extremities: No cyanosis or clubbing. LABORATORY DATA: CBC, metabolic panel have been reviewed. Prolactin level is 4.6. IMAGING STUDIES: CT of the head on 05/23/2019 shows small petechial hemorrhage with a stable infarct pattern, large acute or subacute involving the medial temporal lobe and occipital lobe in the right posterior cerebral artery. Renal ultrasound: No evidence of renal artery stenosis. ASSESSMENT AND PLAN: This is a 64-year-old male with hypertension, diabetes, transferred to [facility], due to erratic driving, found to have a right cerebellar stroke on 04/26/2019. Patient was given aspirin and Plavix. Due to dysphagia, feeding tube was placed. Bubble study echo showed no intraatrial shunting. Ejection fraction (EF) was 65 to 70%. Patient continued to have left-sided hemiparesis, hemianopia, expressive aphasia, and gaze paralysis. He was transferred to [place] for acute rehab. During his admission, he has had his feeding tube replaced. He had persistent mixed aphasia and double vision on the right side and was paraphasic. Repeat CT of the head shows new petechial hemorrhages within the old subacute stroke. His aspirin had been discontinued, Plavix is continued. An EEG was performed, the result of which is still unavailable. Per Dr. Wilkins, Neurologist on consult, no anti-seizure medications for now. [facility]
[2019-05-24] MEDS ORDERED: LORazepam 2 MG/ML VIAL (J2060) IM PRN (19:45)
[2019-05-24 19:52] VITALS: BP 162/78
[2019-05-24] MEDS: LISINOPRIL 20 MG TAB PO SCH (20:04)
[2019-05-24] MEDS: levETIRAcetam ORAL SOLUTION 500 MG/5 ML UDC PO SCH (20:05)
[2019-05-24] MEDS: traZODone 50 MG TAB PO SCH (20:05)
[2019-05-24] MEDS: TAMSULOSIN 0.4 MG CAP PO SCH (20:05)
[2019-05-24] MEDS: FLUoxetine 20 MG CAP PO SCH (20:05)
[2019-05-24] MEDS: LANSOPRAZOLE SUSPENSION 30 MG/10 ML ORAL SYRINGE (FIRST-LANSOPRAZOLE) PO SCH (20:06)
[2019-05-24] MEDS ORDERED: LISINOPRIL 20 MG TAB GT SCH (21:00)
[2019-05-25 05:30] VITALS: BP 160/70
[2019-05-25] MEDS: ATORVASTATIN 20 MG TAB PO SCH (08:27)
[2019-05-25] MEDS: HumaLOG INSULIN (NovoLOG) PER UNIT SC SCH ×4 (08:27→20:11)
[2019-05-25] MEDS: CLOPIDOGREL 75 MG TAB PO SCH (08:27)
[2019-05-25] MEDS: LANSOPRAZOLE SUSPENSION 30 MG/10 ML ORAL SYRINGE (FIRST-LANSOPRAZOLE) PO SCH ×2 (08:27→21:49)
[2019-05-25] MEDS: **hydrALAZINE** 10 MG TAB PO SCH ×4 (08:28→19:40)
[2019-05-25] MEDS: DOXAZOSIN MESYLATE 1 MG TAB PO SCH (08:28)
[2019-05-25] MEDS: levETIRAcetam ORAL SOLUTION 500 MG/5 ML UDC PO SCH ×2 (08:28→21:49)
[2019-05-25] MEDS: POLYVINYL ALCOHOL OPHTH SOLN 15 ML(LIQUITEARS) OU SCH ×4 (08:29→21:49)
[2019-05-25] MEDS: GLY OXIDE SSP SCH ×4 (08:30→21:49)
[2019-05-25 11:49] VITALS: BP 129/62
--- NOTE | 2019-05-25 11:51 | IPNPDOC ---
Date Seen The patient was seen on 05/25/19. Progress Note Per Dr. Wilkins, after reviewing pt's EEG on 05/24/19, he recommended keppra 250 mg bid. VS, I&O, 24H, Fishbone Vital Signs/I&O Vital Signs Date Time Temp Pulse Resp B/P (MAP) Pulse Ox O2 Delivery O2 Flow Rate FiO2 05/25/19 11:49 61 129/62 (84) 05/25/19 05:30 97.1 18 97 I&O- Last 24 Hours up to 6 AM 05/25/19 06:00 Intake Total 1110 ml Output Total 1775 ml Balance -665 ml Laboratory Data 24H LABS Laboratory Tests 2 05/24/19 11:57: Urine Color YELLOW, Urine Appearance HAZY, Urine pH 8.0, Urine Specific Guion 1.006, Urine Protein NEGATIVE, Urine Glucose (UA) NEGATIVE, Urine Ketones NEGATIVE, Urine Blood NEGATIVE, Urine Nitrite NEGATIVE, Urine Bilirubin NEGATIVE, Urine Urobilinogen 0.2, Urine Leukocyte Esterase NEGATIVE, Urine WBC (Auto) 0, Urine RBC (Auto) 0, Urine Hyaline Casts (Auto) 1, Urine Bacteria (Auto) NEGATIVE, Urine Squamous Epithelial Cells 0, Urine Amorphous Sediment SMALLH, Urine Mucus (Auto) SMALL, Urine Sperm (Auto) 05/24/19 12:10: Bedside Glucose (Misc Panel) 187H 05/24/19 12:11: Immature Granulocyte % (Auto) 0.3, White Blood Count 6.7, Red Blood Count 3.96L, Hemoglobin 12.0L, Hematocrit 35.8L, Mean Corpuscular Volume 90.4, Mean Corpuscular Hemoglobin 30.3, Mean Corpuscular Hemoglobin Concent 33.5, Red Cell Distribution Width 12.2, Platelet Count 376, Neutrophils (%) (Auto) 67.4H, Lymphocytes (%) (Auto) 21.0L, Monocytes (%) (Auto) 9.1H, Eosinophils (%) (Auto) 1.8, Basophils (%) (Auto) 0.4, Neutrophils # (Auto) 4.5, Lymphocytes # (Auto) 1.4L, Monocytes # (Auto) 0.6, Eosinophils # (Auto) 0.1, Basophils # (Auto) 0.0, Nucleated Red Blood Cells % (auto) 0.0, Anion Gap 3L, Glomerular Filtration Rate > 60.0, Blood Urea Nitrogen 8, Creatinine 0.61L, Sodium Level 139, Potassium Level 4.5, Chloride Level 103, Carbon Dioxide Level 33H, Calcium Level 9.3, Aspartate Amino Transf (AST/SGOT) 17, Alanine Aminotransferase (ALT/SGPT) 37, Alkaline Phosphatase 99, Total Bilirubin 0.2, Total Protein 6.4, Albumin 3.1L, Albumin/Globulin Ratio 0.94L, Prolactin 4.6 05/24/19 17:14: Bedside Glucose (Misc Panel) 166H 05/24/19 19:47: Bedside Glucose (Misc Panel) 185H 05/25/19 06:06: Bedside Glucose (Misc Panel) 175H 05/25/19 11:43: Bedside Glucose (Misc Panel) 259H CBC/BMP Laboratory Tests 05/24/19 12:11 Red Blood Count 3.96 L, Mean Corpuscular Volume 90.4, Mean Corpuscular Hemoglobin 30.3, Mean Corpuscular Hemoglobin Concent 33.5, Red Cell Distribution Width 12.2, Neutrophils (%) (Auto) 67.4 H, Lymphocytes (%) (Auto) 21.0 L, Monocytes (%) (Auto) 9.1 H, Eosinophils (%) (Auto) 1.8, Basophils (%) (Auto) 0.4, Neutrophils # (Auto) 4.5, Lymphocytes # (Auto) 1.4 L, Monocytes # (Auto) 0.6, Eosinophils # (Auto) 0.1, Basophils # (Auto) 0.0, Calcium Level 9.3, As partate Amino Transf (AST/SGOT) 17, Alanine Aminotransferase (ALT/SGPT) 37, Alkaline Phosphatase 99, Total Bilirubin 0.2, Total Protein 6.4, Albumin 3.1 L Microbiology Microbiology 05/21/19 Stool Occult Blood (SUSAN) - Final, Complete VIRI DECKER MD May 25, 2019 11:51
[2019-05-25] MEDS ORDERED: amLODIPine 5 MG TAB PO ONE ×2 (12:00→22:30)
[2019-05-25 14:00] VITALS: BP 151/72
--- NOTE | 2019-05-25 15:10 | IPNPDOC ---
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 He reports he is feeling well overall. REVIEW OF SYSTEMS: The following is a completed review of systems and has been r eviewed. Review of systems otherwise unremarkable. PAIN: Patient self reports no pain EYES: +visual deficit EARS, NOSE, & THROAT:+dysphagia CARDIOVASCULAR: Denies chest pain or palpitations PULMONARY: Denies shortness of breath GASTROINTESTINAL: Denies constipation/diarrhea GENITOURINARY: +urinary retention (gradually improving) MUSCULOSKELETAL: no joint pain/deformities NEUROLOGICAL:+stroke HEMATOLOGICAL: no easy bruising SKIN: PeG site PSYCHIATRIC: +confused (improving) All other review of systems found to be negative. PHYSICAL EXAMINATION: VITAL SIGNS: Please see below. GENERAL: Pleasant and cooperative. No acute distress. HEENT: PERRL. Extraocular movements impaired, eyes fixed inferiorly and to the right, able to cross midline, Clear conjunctiva CARDIOVASCULAR: Regular rate and rhythm. No murmurs, rubs, or gallops LUNGS: Clear to auscultation bilaterally. No wheezes. No rhonchi ABDOMEN: Soft, nontender, nondistended. Positive bowel sounds. Normal active bowel sounds +PEG, no guarding NEUROLOGICAL: Alert and oriented to self only . 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 4/5 strength in left lower extremity. SKIN:no rash ASSESSMENT:63-year-old M with past medical history of HTN and DM who presents status post stroke PLAN: 1. 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 Wilkins neuro recs appreciated -patient with left arm tremor with EEG on 05/24/19 showing slowing without epileptiform activity, patient started on Keppra per neuro recs -c/u Prozac for motor recovery 3. Cardiac: pmh HTN, c/u BP meds and adjust prn, medicine consulted to assist in management -vacillating BPs, c/u hyrdralazine 40mg, increased to QID with hold parameters, c/u lisinopril, norvasc added -renal US negative for renal artery stenosis -will discuss possibility of in-house loop recorder placement with cardiology for possible cryptogenic stroke 4. Resp: encourage incentive spirometry, admission CXR +left lower lobe infiltrate, s/p Levofloxacin, Duonebs and Guaifenesin- no leukocytosis at this point, will continue to monitor 5. Endo: pmh DM, cu ISS FS ac and qhs 6. : urinary retention with Estrada placed per [facility] urology, did trial of void, however patient still retaining despite being on Cardura and Flomax, will restart Estrada in setting of fluctuating BPs 7. DVT ppx: Lovenox and TEDs, admission Dopplers negative 8. GI ppx: Lansoprazole BID -patient pulled his PEG 05/12/19 and replaced at bedside by surgery, then replaced in OR on 05/13/19, mild leukocytosis resolved, abdomen soft, afebrile, will continue to monitor for peritonitis-stable 9. Nutrition: PEG in place, however diet advanced to po, eating well 10. Skin: turn q2h and monitor for skin break down 11. Psych: episodes of agitation, trazodone ordered prn, insomnia c/u trazodone 25mg qHS standing -s/p Propranolol agitation improving overall -may use Ativan IM prn agitation if trazodone does not work -avoid overstimulating and adjust environment prn 12. Dispo: 06/03/19 to home with 24-7 Allergies Coded Allergies: No Known Allergies (Unverified , 9/17/19) Vital Signs Vital Signs Date Time Temp Pulse Resp B/P (MAP) Pulse Ox O2 Delivery O2 Flow Rate FiO2 05/25/19 14:00 97.7 64 18 151/72 (98) 98 Laboratory Data Labs 24H Laboratory Tests 2 05/24/19 17:14: Bedside Glucose (Misc Panel) 166H 05/24/19 19:47: Bedside Glucose (Misc Panel) 185H 05/25/19 06:06: Bedside Glucose (Misc Panel) 175H 05/25/19 11:43: Bedside Glucose (Misc Panel) 259H Microbiology Microbiology 05/21/19 Stool Occult Blood (SUSAN) - Final, Complete Current Medications Current Medications Current Medications Medications (Trade) Dose Ordered Sig/Maricruz Route PRN Reason Start Time Stop Time Status Last Admin Dose Admin Acetaminophen (Tylenol Suspension) 650 mg Q4HP PRN GT PAIN OR FEVER 05/10/19 12:45 05/24/19 15:53 DC 05/22/19 00:13 Acetaminophen (Tylenol Suspension) 650 mg Q4HP PRN PO PAIN OR FEVER 05/24/19 16:00 Albuterol/ Ipratropium (Duoneb (Ipr 0.5mg/Alb 2.5mg)) 3 ml RBID NEB 05/11/19 08:00 05/12/19 12:31 DC 05/12/19 07:28 Amlodipine Besylate (Norvasc) 2.5 mg QHS PO 05/20/19 21:00 05/23/19 06:46 DC 05/22/19 18:33 Amlodipine Besylate (Norvasc) 5 mg DAILY@1700 PO 05/23/19 17:00 05/24/19 17:28 Artificial Tears (Akwa Tears) 2 drop QID OU 05/10/19 13:00 05/25/19 12:24 Aspirin (Aspirin Chewable) 81 mg DAILY PEG 05/11/19 09:00 05/23/19 18:08 DC 05/23/19 07:59 Atorvastatin Calcium (Lipitor) 80 mg DAILY GT 05/11/19 09:00 05/24/19 15:53 DC 05/24/19 07:47 Atorvastatin Calcium (Lipitor) 80 mg DAILY PO 05/25/19 09:00 05/25/19 08:27 Carbamide Peroxide (Debrox) 5 drop PCHS XX 05/10/19 18:30 05/14/19 18:29 Cancel Clopidogrel Bisulfate (PLAVix) 75 mg DAILY PO 05/11/19 09:00 05/25/19 08:27 Dextrose (Dextrose 50%) 25 ml ASDIRECTED PRN IV SEE LABEL COMMENTS 05/10/19 12:45 05/18/19 12:25 DC Dextrose (Dextrose 50%) 25 ml ASDIRECTED PRN IV SEE LABEL COMMENTS 05/17/19 10:30 Dextrose/Sodium Chloride 1,000 ml @ 75 mls/hr [id number] IV 05/12/19 18:45 05/14/19 13:16 DC 05/14/19 06:30 Doxazosin Mesylate (Cardura) 2 mg DAILY GT 05/12/19 09:00 05/24/19 15:53 DC 05/24/19 05:27 Doxazosin Mesylate (Cardura) 2 mg DAILY PO 05/11/19 09:00 05/11/19 11:43 DC 05/11/19 07:58 Doxazosin Mesylate (Cardura) 2 mg DAILY PO 05/25/19 09:00 05/25/19 08:28 Enoxaparin Sodium (Lovenox) 40 mg DAILY SC 05/11/19 09:00 05/23/19 15:34 DC 05/23/19 08:03 Fluoxetine HCl (PROzac) 20 mg QHS GT 05/11/19 21:00 05/24/19 15:53 DC 05/23/19 21:04 Fluoxetine HCl (PROzac) 20 mg QHS PO 05/24/19 21:00 05/24/19 20:05 Glucagon (Glucagon) 1 mg ASDIRECTED PRN SC SEE LABEL COMMENTS 05/10/19 12:45 05/18/19 12:25 DC Glucagon (Glucagon) 1 mg ASDIRECTED PRN SC SEE LABEL COMMENTS 05/17/19 10:30 Glucose (Glucose) 16 GM ASDIRECTED PRN PO SEE LABEL COMMENTS 05/10/19 12:45 05/18/19 12:25 DC Glucose (Glucose) 16 GM ASDIRECTED PRN PO SEE LABEL COMMENTS 05/17/19 10:30 Guaifenesin (Robitussin) 10 ml BID GT 05/11/19 09:00 05/24/19 12:16 DC 05/24/19 07:46 Home Med (Med Rec Complete!) ASDIRECTED XX 05/10/19 13:30 05/10/19 13:30 DC Hydralazine HCl (Apresoline) 20 mg TID PO 05/16/19 09:00 05/18/19 16:30 DC 05/18/19 16:16 Hydralazine HCl (Apresoline) 40 mg QID PO 05/23/19 13:00 05/25/19 08:28 Hydralazine HCl (Apresoline) 40 mg TID PO 05/18/19 21:00 05/23/19 12:05 DC 05/23/19 08:04 Hydralazine HCl (Apresoline) 50 mg TID PO 05/19/19 09:00 05/19/19 17:00 DC 05/19/19 08:29 Insulin Detemir (Levemir Insulin) 5 units DAILY@0000 PR 05/12/19 00:00 05/17/19 10:31 DC 05/16/19 00:10 [facility]em[facility] ([facility]) [facility] 05/10/19 21:00 05/11/19 11:56 DC Insulin Human Lispro (HumaLOG INSULIN) SEE PROTOCOL TABLE AC PR 05/10/19 17:30 05/11/19 11:46 DC 05/11/19 07:56 Insulin Human Lispro (HumaLOG INSULIN) SEE PROTOCOL TABLE AC PR 05/17/19 07:30 05/25/19 12:24 Insulin Human Lispro (HumaLOG INSULIN) SEE PROTOCOL TABLE Q6H PR 05/11/19 12:00 05/17/19 10:31 DC 05/17/19 06:23 Insulin Human Lispro (HumaLOG INSULIN) [facility]OTOCOL TABLE [facility] 05/10/19 21:00 05/11/19 11:46 DC Insulin Human Lispro (HumaLOG INSULIN) SEE PROTOCOL TABLE Q[facility] 05/17/19 21:00 Lansoprazole (First-Lansoprazole Oral Suspension) 30 mg BID PEG 05/11/19 21:00 05/24/19 15:53 DC 05/24/19 07:48 Lansoprazole (First-Lansoprazole Oral Suspension) 30 mg BID PO 05/24/19 21:00 05/25/19 08:27 Lansoprazole (First-Lansoprazole Oral Suspension) 30 mg DAILY PEG 05/10/19 09:00 05/11/19 11:46 DC 05/11/19 07:57 Levetiracetam (Keppra Oral Solution) 250 mg BID GT 05/24/19 18:15 05/24/19 18:59 DC 05/24/19 18:50 Levetiracetam (Keppra Oral Solution) 250 mg BID PO 05/24/19 21:00 05/25/19 08:28 Levofloxacin (Levaquin) 750 mg DAILY@06 GT 05/11/19 10:30 05/17/19 06:01 DC 05/17/19 06:23 Lidocaine/ Diphenhydr/Alum/ Mg/Simeth (Magic Mouthwash) 5ml AC SSP 05/11/19 07:30 05/11/19 11:43 DC 05/11/19 07:54 Lisinopril (Prinivil) 5 mg DAILY GT 05/12/19 09:00 05/12/19 11:05 DC 05/12/19 09:31 Lisinopril (Prinivil) 5 mg DAILY PO 05/11/19 09:00 05/11/19 11:43 DC 05/11/19 07:59 Lisinopril (Prinivil) 10 mg DAILY GT 05/21/19 09:00 05/24/19 09:40 DC 05/24/19 07:47 Lisinopril (Prinivil) 20 mg DAILY GT 05/13/19 09:00 05/20/19 10:38 DC 05/20/19 08:54 Lisinopril (Prinivil) 20 mg QHS GT 05/24/19 21:00 05/24/19 15:53 DC Lisinopril (Prinivil) 20 mg QHS PO 05/24/19 21:00 05/24/19 20:04 Lorazepam (Ativan) 1 mg Q6HP PRN IM AGITATION 05/12/19 09:15 05/23/19 09:00 DC Lorazepam (Ativan) 2 mg Q4HP PRN IM SEIZURES 05/24/19 19:45 Miscellaneous (Unresolved Clarification Entry) SEE LABEL COMMENTS DAILY XX 05/22/19 09:00 05/22/19 15:57 DC Miscellaneous (Unresolved Patient Own Med Order) SEE LABEL COMMENTS DAILY XX 05/12/19 09:00 05/15/19 14:52 DC Morphine Sulfate (Roxanol) 5 mg Q2HP PRN SL PAIN 05/12/19 16:00 05/18/19 11:04 DC 05/12/19 16:23 Patient Own Medication (Patient'S Own Med) SWISH AND SPIT 5 DROPS... [facility] SSP 05/10/19 18:30 05/15/19 18:17 DC Patient Own Medication (Patient'S Own Med) SWISH AND SPIT 5 DROPS... [facility] 05/15/19 18:30 05/25/19 12:24 Propranolol HCl (Inderal Liquid) 10 mg TID PO 05/11/19 21:00 05/20/19 10:38 DC 05/20/19 08:52 Tamsulosin HCl (Flomax) 0.4 mg BID PO 05/18/19 21:00 05/20/19 10:38 DC 05/20/19 08:54 Tamsulosin HCl (Flomax) 0.4 mg DAILY PO 05/18/19 10:00 05/18/19 12:59 DC 05/18/19 10:20 Tamsulosin HCl (Flomax) 0.4 mg QHS PO 05/20/19 21:00 05/22/19 21:56 DC 05/22/19 21:14 Tamsulosin HCl (Flomax) 0.8 mg QHS PO 05/23/19 21:00 05/24/19 20:05 Trazodone HCl (Desyrel) 25 mg Q6HP PRN GT AGITATION 05/11/19 11:45 05/24/19 15:53 DC 05/11/19 18:36 Trazodone HCl (Desyrel) 25 mg Q6HP PRN PO AGITATION 05/10/19 12:45 05/11/19 11:43 DC Trazodone HCl (Desyrel) 25 mg Q6HP PRN PO AGITATION 05/24/19 16:00 Trazodone HCl (Desyrel) 25 mg QHS GT 05/11/19 21:00 05/12/19 09:07 DC 05/11/19 20:53 Trazodone HCl (Desyrel) 25 mg QHS PO 05/10/19 21:00 05/11/19 11:43 DC 05/10/19 20:39 Trazodone HCl (Desyrel) 50 mg QHS GT 05/12/19 21:00 05/24/19 17:35 DC 05/23/19 21:05 Trazodone HCl (Desyrel) 50 mg QHS PO 05/24/19 21:00 05/24/19 20:05 SHARAN HOOVER MD May 25, 2019 15:10
[2019-05-25 17:12] VITALS: BP 147/56
--- NOTE | 2019-05-25 17:40 | IPN ---
DATE: 05/25/2019 Patient was started on Keppra yesterday due to abnormal electroencephalogram (EEG) per neurology recommendations, Dr. Wilkins. No recurrent seizure despite pressure of 162 systolic. Patient denies any headache, chest pain. He has no fever or chills. No cough. No shortness of breath overnight. Tolerating his oral diet. PHYSICAL EXAMINATION: VITAL SIGNS: Temperature 97.7, pulse 64, respiratory rate 18, blood pressure is 129-160 systolic, diastolic 62-70, respiratory rate 18, 98% on room air. GENERAL: Patient is awake, alert, oriented to his name only. He is disoriented to place and time. He continues to have mild expressive aphasia. No facial asymmetry. Patient's eyes are deviated to the right. He has 5/5 motor function. He is cooperative. LUNGS: Clear to auscultation. No wheezes, rales, or rhonchi. HEART: S1, S2, irregularly irregular. ABDOMEN: Soft, nontender, nondistended. EXTREMITIES: No cyanosis or clubbing. On May 24, CBC, metabolic panel have been reviewed. 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 Was driving erratically and was brought into the hospital, found to have a right cerebellar stroke. He was treated at [facility] with aspirin and Plavix. Feeding tube due to persistent dysphagia. Bubble study echo showed no intra-atrial shunting. Ejection fraction (EF) was 65-70%. Patient was subsequently transferred to [facility] due to persistent left-sided hemiparesis, hemianopia, expressive aphasia, and gaze paralysis. During this admission he was continued on his feeding tube and had an episode of left tremors, thought to be seizures. EEG was abnormal, and per neurologist on consult patient was started on Keppra 350 twice a day. He is able to tolerate his diet currently and off of feeding tubes. IMPRESSION: 1. Cerebrovascular accident (CVA), bilateral thalamic, right occipital, right cerebellar, secondary to bilateral vertebral, basal, intracranial, and extracranial artery disease in the setting of prior history of diabetes, hypertension, and smoking. Patient's aspirin was discontinued due to slight hemorrhage found on CT of the head. 2. seizure in the setting of recent bilateral CVA. Per neurology recommendations, patient has been started on Keppra 250 twice a day without recurrent episodes. 3. Uncontrolled hypertension. Goal is to have blood pressure less than 140 systolic and less than 90 diastolic. Patient is currently on Norvasc, hydralazine, and lisinopril. Nursing has been instructed to call MD to adjust medication should the blood pressure be greater than 140 systolic or greater than 90 diastolic. MTDD
[2019-05-25 19:30] VITALS: BP 162/76
[2019-05-25] MEDS: LISINOPRIL 20 MG TAB PO SCH (19:40)
[2019-05-25] MEDS: TAMSULOSIN 0.4 MG CAP PO SCH (21:49)
[2019-05-25] MEDS: FLUoxetine 20 MG CAP PO SCH (21:49)
[2019-05-25] MEDS: traZODone 50 MG TAB PO SCH (21:49)
[2019-05-25 22:15] VITALS: BP 178/80
[2019-05-26] VITALS: BP 140/70
[2019-05-26 05:00] VITALS: BP_SYST 112; BP_SYST 182; BP_DIAS 64; BP_DIAS 88
[2019-05-26] MEDS: **hydrALAZINE** 10 MG TAB PO SCH ×4 (06:07→20:55)
[2019-05-26] MEDS: DOXAZOSIN MESYLATE 1 MG TAB PO SCH (06:07)
[2019-05-26] MEDS: HumaLOG INSULIN (NovoLOG) PER UNIT SC SCH ×4 (07:52→21:00)
[2019-05-26] MEDS: levETIRAcetam ORAL SOLUTION 500 MG/5 ML UDC PO SCH (08:15)
[2019-05-26] MEDS: ATORVASTATIN 20 MG TAB PO SCH (08:15)
[2019-05-26] MEDS: CLOPIDOGREL 75 MG TAB PO SCH (08:15)
[2019-05-26] MEDS: LANSOPRAZOLE SUSPENSION 30 MG/10 ML ORAL SYRINGE (FIRST-LANSOPRAZOLE) PO SCH ×2 (08:16→20:55)
[2019-05-26] MEDS: POLYVINYL ALCOHOL OPHTH SOLN 15 ML(LIQUITEARS) OU SCH ×4 (08:25→20:55)
[2019-05-26] MEDS: GLY OXIDE SSP SCH ×4 (08:26→20:55)
[2019-05-26 09:00] VITALS: BP 128/64
--- NOTE | 2019-05-26 09:40 | REP ---
CT study of the brain without contrast: History: CVA. Petechial hemorrhage. Comparison CT studies are from May 21 and May 23, 2019. CT findings: Cerebral infarction involving the distribution of the right posterior cerebral artery is again seen affecting the posteromedial temporal lobe and the right occipital lobe. There was a small focus of petechial hemorrhage in the posteromedial temporal lobe on the right which is again seen unchanged and somewhat less opaque. No new hemorrhagic component is appreciated. There is also evidence of acute lacunar infarcts in the thalami bilaterally. These are unchanged and non-hemorrhagic. No extra-axial fluid collection is seen. No mass or midline shift is observed. 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 Impression: Right posterior cerebral artery distribution infarct and bilateral thalamic infarcts again noted unchanged. Electronically Signed by Tomasz Schultz MD 05/26/2019 11:09 A
[2019-05-26 13:05] LABS: BLOOD UREA NITROGEN 9 MG/DL (7-18); CARBON DIOXIDE LEVEL 33 MEQ/L (21-32); CHLORIDE LEVEL 103 MEQ/L (98-107); CREATININE FOR GFR 0.67 MG/DL (0.70-1.30); GLOMERULAR FILTRATION RATE > 60.0 (>49); GLUCOSE, FASTING 186 MG/DL (70-100); POTASSIUM SERUM 4.7 MEQ/L (3.5-5.1); SODIUM LEVEL 141 MEQ/L (136-145)
[2019-05-26 14:00] VITALS: BP 134/64
[2019-05-26 20:30] VITALS: BP 178/90
[2019-05-26] MEDS: levETIRAcetam 250MG TABLET (KEPPRA) PO SCH (20:55)
[2019-05-26] MEDS: FLUoxetine 20 MG CAP PO SCH (20:55)
[2019-05-26] MEDS: traZODone 50 MG TAB PO SCH (20:55)
[2019-05-26] MEDS: LISINOPRIL 20 MG TAB PO SCH (20:55)
[2019-05-26] MEDS: TAMSULOSIN 0.4 MG CAP PO SCH (20:55)
[2019-05-27] VITALS (11 sets, daily range): BP systolic 112–188; BP diastolic 58–84
[2019-05-27] MEDS ORDERED: amLODIPine 5 MG TAB PO ONE (00:15)
[2019-05-27] MEDS: **hydrALAZINE** 10 MG TAB PO SCH ×5 (00:17→22:21)
[2019-05-27] MEDS: ATORVASTATIN 20 MG TAB PO SCH (08:14)
[2019-05-27] MEDS: DOXAZOSIN MESYLATE 1 MG TAB PO SCH (08:14)
[2019-05-27] MEDS: CLOPIDOGREL 75 MG TAB PO SCH (08:14)
[2019-05-27] MEDS: POLYVINYL ALCOHOL OPHTH SOLN 15 ML(LIQUITEARS) OU SCH ×4 (08:15→20:23)
[2019-05-27] MEDS: levETIRAcetam 250MG TABLET (KEPPRA) PO SCH ×2 (08:15→20:20)
[2019-05-27] MEDS: LANSOPRAZOLE SUSPENSION 30 MG/10 ML ORAL SYRINGE (FIRST-LANSOPRAZOLE) PO SCH ×2 (08:15→20:22)
[2019-05-27] MEDS: GLY OXIDE SSP SCH ×4 (08:15→20:23)
[2019-05-27] MEDS: HumaLOG INSULIN (NovoLOG) PER UNIT SC SCH ×4 (08:15→20:24)
[2019-05-27] MEDS: TAMSULOSIN 0.4 MG CAP PO SCH (20:20)
[2019-05-27] MEDS: LISINOPRIL 20 MG TAB PO SCH (20:21)
[2019-05-27] MEDS: traZODone 50 MG TAB PO SCH (20:22)
[2019-05-27] MEDS: FLUoxetine 20 MG CAP PO SCH (20:22)
[2019-05-28] VITALS (7 sets, daily range): BP systolic 100–178; BP diastolic 44–72
[2019-05-28] MEDS ORDERED: amLODIPine 5 MG TAB PO ONE (00:15)
[2019-05-28] MEDS: **hydrALAZINE** 10 MG TAB PO SCH ×4 (05:51→23:48)
[2019-05-28] MEDS: GLY OXIDE SSP SCH ×4 (08:52→20:54)
[2019-05-28] MEDS: CLOPIDOGREL 75 MG TAB PO SCH (08:53)
[2019-05-28] MEDS: DOXAZOSIN MESYLATE 1 MG TAB PO SCH (08:53)
[2019-05-28] MEDS: ATORVASTATIN 20 MG TAB PO SCH (08:53)
[2019-05-28] MEDS: LANSOPRAZOLE SUSPENSION 30 MG/10 ML ORAL SYRINGE (FIRST-LANSOPRAZOLE) PO SCH ×2 (08:53→20:53)
[2019-05-28] MEDS: HumaLOG INSULIN (NovoLOG) PER UNIT SC SCH ×4 (08:53→21:00)
[2019-05-28] MEDS: POLYVINYL ALCOHOL OPHTH SOLN 15 ML(LIQUITEARS) OU SCH ×4 (08:54→21:07)
[2019-05-28] MEDS: levETIRAcetam 250MG TABLET (KEPPRA) PO SCH ×2 (08:54→20:52)
--- NOTE | 2019-05-28 12:49 | IPN ---
DATE: 05/28/2019 The patient's occupational therapist is at the bedside. He has no new complaints, tolerating his pureed diet well. No complaints of choking, shortness of breath, cough. He slept well overnight. Blood pressure is well maintained currently. PHYSICAL EXAM: Temperature 98.6, pulse 65, respiratory rate 17, blood pressure 100/44 to 145/67, 96% on room air. Generally, patient is awake, alert, oriented to himself only. He does not recall the date, time and where he is. He states that it is 1956. He continues to have mixed aphasia. He is cooperative. 5/5 motor function times four extremities. No paresthesias. Eyes are deviated to the right. No jugular venous distention or thyromegaly. Lungs are clear to auscultation. No wheezing, rales, or rhonchi. Heart: S1, S2, irregularly irregular. Abdomen is soft, nontender, nondistended. Positive bowel sounds times four quadrants. No rebound or guarding. No hepatosplenomegaly. No abdominal bruits. Extremities: No cyanosis, clubbing, or any pitting edema. LABORATORY DATA: 05/24/2019 CBC, 05/26/2019 metabolic panel have been reviewed. CT of the head on 05/26/2019 shows no acute changes from previous. Right posterior cerebral artery distribution infarct and bilateral thalamic infarcts. No new hemorrhagic component is appreciated. Small focus of petechial hemorrhage in the posteromedial temporal lobe on the right, which is unchanged and somewhat less opaque. 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 He was treated at [facility] with aspirin and Plavix, feeding tube was placed due to persistent dysphagia. Bubble study echo showed no intraatrial shunting. Ejection fraction (EF) was 65-70%. After stabilization, patient was transferred to [facility] for acute rehab. During this hospitalization, feeding tube was checked. EEG was abnormal. The patient had episode of what was felt to be seizures and has been started on Keppra 250 mg twice a day with no recurrent episode since. He has improved with his dysphagia and is currently on pureed liquids. IMPRESSION: 1. Bilateral thalamic CVA secondary to bilateral vertebral basal intracranial and extracranial artery disease with risk factors of diabetes, hypertension, and smoking. CT of the head shows small petechial hemorrhage, which is unchanged. The patient is clinically improved. He is currently on aspirin, Keppra, which has been increased to 500 mg twice a day to keep blood pressure less than 140 systolic and less than 90 diastolic. On Plavix and aspirin. 2. Hypertension. Patient is to have blood pressure controlled, less than 140 systolic, less than 90 diastolic. He is currently on hydralazine 40 mg every 6 hours, lisinopril 20 mg nightly, and Norvasc 5 mg daily. 3. Dyslipidemia. On Lipitor 80 mg daily. 4. Depression. On Prozac 20 mg nightly. 5. Insomnia. On trazodone. 6. BPH. On Flomax. 7. Type 2 diabetes. On sliding scale. DISPOSITION: Per rehab team. MTDD
[2019-05-28] MEDS: traZODone 50 MG TAB PO SCH (20:52)
[2019-05-28] MEDS: TAMSULOSIN 0.4 MG CAP PO SCH (20:52)
[2019-05-28] MEDS: LISINOPRIL 20 MG TAB PO SCH (20:53)
[2019-05-28] MEDS: FLUoxetine 20 MG CAP PO SCH (20:53)
[2019-05-29 05:22] VITALS: BP 162/74
[2019-05-29] MEDS: **hydrALAZINE** 10 MG TAB PO SCH ×3 (05:27→18:00)
[2019-05-29] MEDS: CLOPIDOGREL 75 MG TAB PO SCH (09:35)
[2019-05-29] MEDS: HumaLOG INSULIN (NovoLOG) PER UNIT SC SCH ×4 (09:35→20:32)
[2019-05-29] MEDS: LANSOPRAZOLE SUSPENSION 30 MG/10 ML ORAL SYRINGE (FIRST-LANSOPRAZOLE) PO SCH ×2 (09:36→20:17)
[2019-05-29] MEDS: levETIRAcetam 250MG TABLET (KEPPRA) PO SCH ×2 (09:36→20:17)
[2019-05-29] MEDS: ATORVASTATIN 20 MG TAB PO SCH (09:36)
[2019-05-29] MEDS: DOXAZOSIN MESYLATE 1 MG TAB PO SCH (09:36)
[2019-05-29] MEDS: POLYVINYL ALCOHOL OPHTH SOLN 15 ML(LIQUITEARS) OU SCH ×4 (09:37→20:17)
[2019-05-29] MEDS: GLY OXIDE SSP SCH ×4 (09:37→20:18)
[2019-05-29 10:30] VITALS: BP 102/56
[2019-05-29 13:15] VITALS: BP 158/76
[2019-05-29 19:49] VITALS: BP 135/66
[2019-05-29] MEDS: TAMSULOSIN 0.4 MG CAP PO SCH (20:16)
[2019-05-29] MEDS: FLUoxetine 20 MG CAP PO SCH (20:17)
[2019-05-29] MEDS: traZODone 50 MG TAB PO SCH (20:17)
[2019-05-29] MEDS: LISINOPRIL 20 MG TAB PO SCH (20:17)
[2019-05-30] VITALS (9 sets, daily range): BP systolic 118–180; BP diastolic 58–90
[2019-05-30] MEDS: **hydrALAZINE** 10 MG TAB PO SCH (00:04)
[2019-05-30] MEDS ORDERED: **hydrALAZINE** 50 MG TAB PO ONE (02:30)
[2019-05-30] MEDS ORDERED: **hydrALAZINE** 50 MG TAB PO SCH (06:00)
[2019-05-30] MEDS: **hydrALAZINE** 50 MG TAB PO SCH ×3 (06:08→16:50)
[2019-05-30] MEDS: levETIRAcetam 250MG TABLET (KEPPRA) PO SCH ×2 (08:07→20:58)
[2019-05-30] MEDS: ATORVASTATIN 20 MG TAB PO SCH (08:07)
[2019-05-30] MEDS: ASPIRIN 81 MG ENTERIC TAB PO SCH (08:07)
[2019-05-30] MEDS: CLOPIDOGREL 75 MG TAB PO SCH (08:07)
[2019-05-30] MEDS: DOXAZOSIN MESYLATE 1 MG TAB PO SCH (08:07)
[2019-05-30] MEDS: HumaLOG INSULIN (NovoLOG) PER UNIT SC SCH ×4 (08:07→20:58)
[2019-05-30] MEDS: GLY OXIDE SSP SCH ×4 (08:08→21:00)
[2019-05-30] MEDS: POLYVINYL ALCOHOL OPHTH SOLN 15 ML(LIQUITEARS) OU SCH ×4 (08:08→20:59)
[2019-05-30] MEDS: LANSOPRAZOLE SUSPENSION 30 MG/10 ML ORAL SYRINGE (FIRST-LANSOPRAZOLE) PO SCH ×2 (08:08→20:58)
[2019-05-30 10:37] LABS: BASO % 0.5 % (0.0-1.0); EOS # 0.2 10^3/uL (0.0-0.5); EOS % 2.5 % (0.0-3.0); HEMATOCRIT 36.2 % (42.0-52.0); HEMOGLOBIN 11.9 g/dl (13.5-17.5); LYMPH # 1.4 10^3/uL (1.5-5.0); LYMPH % 16.5 % (24.0-44.0); MEAN CORPUSCULAR HEMOGLOBIN 30.4 pg (27.0-33.0); MEAN CORPUSCULAR HGB CONC 32.9 g/dl (32.0-36.5); MEAN CORPUSCULAR VOLUME 92.6 fl (80.0-96.0); MONO # 0.6 10^3/uL (0.0-0.8); NEUTROPHILS # 6.1 10^3/uL (1.5-8.5); NEUTROPHILS % 73.3 % (36.0-66.0); PLATELET COUNT, AUTOMATED 297 10^3/uL (150-450); RED BLOOD COUNT 3.91 10^6/uL (4.30-6.10); WHITE BLOOD COUNT 8.3 10^3/uL (4.0-10.0)
[2019-05-30 11:09] LABS: BLOOD UREA NITROGEN 11 MG/DL (7-18); CALCIUM LEVEL 9.1 MG/DL (8.8-10.2); CARBON DIOXIDE LEVEL 34 MEQ/L (21-32); CHLORIDE LEVEL 100 MEQ/L (98-107); CREATININE FOR GFR 0.74 MG/DL (0.70-1.30); GLOMERULAR FILTRATION RATE > 60.0 (>49); GLUCOSE, FASTING 168 MG/DL (70-100); POTASSIUM SERUM 3.7 MEQ/L (3.5-5.1); SODIUM LEVEL 138 MEQ/L (136-145)
[2019-05-30] MEDS: amLODIPine 5 MG TAB PO SCH ×2 (12:19→20:59)
--- NOTE | 2019-05-30 17:38 | IPNPDOC ---
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 REVIEW OF SYSTEMS: The following is a completed review of systems and has been reviewed. Review of systems otherwise unremarkable. PAIN: Patient self reports no pain EYES: +visual deficit EARS, NOSE, & THROAT:+dysphagia CARDIOVASCULAR: Denies chest pain or palpitations PULMONARY: Denies shortness of breath GASTROINTESTINAL: Denies constipation/diarrhea GENITOURINARY: +urinary retention (gradually improving) MUSCULOSKELETAL: no joint pain/deformities NEUROLOGICAL:+stroke HEMATOLOGICAL: no easy bruising SKIN: PeG site PSYCHIATRIC: +confused (improving) All other review of systems found to be negative. PHYSICAL EXAMINATION: VITAL SIGNS: Please see below. GENERAL: Pleasant and cooperative. No acute distress. HEENT: PERRL. Extraocular movements impaired, eyes fixed inferiorly and to the right, able to cross midline, Clear conjunctiva CARDIOVASCULAR: Regular rate and rhythm. No murmurs, rubs, or gallops LUNGS: Clear to auscultation bilaterally. No wheezes. No rhonchi ABDOMEN: Soft, nontender, nondistended. Positive bowel sounds. Normal active bowel sounds +PEG, no guarding NEUROLOGICAL: Alert and oriented to self only . 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 4/5 strength in left lower extremity. SKIN:no rash ASSESSMENT:63-year-old M with past medical history of HTN and DM who presents status post stroke PLAN: 1. Rehab: PT strengthen, stretch, maintain ROM bilat LE, advance gait training, ambulating with hand-held assist/RW, able to propel his own wheelchair OT strengthen, stretch, maintain ROM bilat UE, adapt therapies for visual deficits WR[employer]PER [employer]ER: advance diet when safe, cognitive evaluation and treat aphasia, MBS 05/16/19 ok to begin honey thickened liquids and puree 2. 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 Wilkins neuro recs appreciated -patient with left arm tremor with EEG on 05/24/19 showing slowing without epileptiform activity, patient started on Keppra per neuro recs -c/u Prozac for motor recovery 3. Cardiac: pmh HTN, c/u BP meds and adjust prn, medicine consulted to assist in management -vacillating BPs, c/u hyrdralazine 40mg, increased to QID with hold parameters, c/u lisinopril, norvasc added -renal US megative for renal artery stenosis -will discuss possibility of in-house loop recorder placement with cardiology for possible cryptogenic stroke 4. Resp: encourage incentive spirometry, admission CXR +left lower lobe infiltrate, s/p Levofloxacin, Duonebs and Guaifenesin- no leukocytosis at this point, will continue to monitor 5. Endo: pmh DM, cu ISS FS ac and qhs 6. : urinary retention with Estrada placed per [facility], did trial of void, however patient still retaining despite being on Cardura and Flomax, will restart Estrada in setting of fluctuating BPs 7. DVT ppx: Lovenox and TEDs, admission Dopplers negative 8. GI ppx: Lansoprazole BID -patient pulled his PEG 05/12/19 and replaced at bedside by surgery, then replaced in OR on 05/13/19, mild leukocytosis resolved, abdomen soft, afebrile, will continue to monitor for peritonitis-stable 9. Nutrition: PEG in place, however diet advanced to po, eating well 10. Skin: turn q2h and monitor for skin break down 11. Psych: episodes of agitation, trazodone ordered prn, insomnia c/u trazodone 25mg qHS standing -s/p Propranolol agitation improving overall -may use Ativan IM prn agitation if trazodone does not work -avoid overstimulating and adjust environment prn 12. Dispo: 06/03/19 to home with 24-7 Allergies Coded Allergies: No Known Allergies (Unverified , 05/10/19) Vital Signs Vital Signs Date Time Temp Pulse Resp B/P (MAP) Pulse Ox O2 Delivery O2 Flow Rate FiO2 05/30/19 16:50 158/64 05/30/19 16:48 63 05/30/19 14:00 97.1 18 67 Laboratory Data CBC/BMP Laboratory Tests 05/30/19 10:17 Red Blood Count 3.91 L, Mean Corpuscular Volume 92.6, Mean Corpuscular Hemoglobin 30.4, Mean Corpuscular Hemoglobin Concent 32.9, Red Cell Distribution Width 12.7, Neutrophils (%) (Auto) 73.3 H, Lymphocytes (%) (Auto) 16.5 L, Monocytes (%) (Auto) 7.0 H, Eosinophils (%) (Auto) 2.5, Basophils (%) (Auto) 0.5, Neutrophils # (Auto) 6.1, Lymphocytes # (Auto) 1.4 L, Monocytes # (Auto) 0.6, Eosinophils # (Auto) 0.2, Basophils # (Auto) 0.0, Calcium Level 9.1 Labs 24H Laboratory Tests 2 05/29/19 20:07: Bedside Glucose (Misc Panel) 225H 05/30/19 06:01: Bedside Glucose (Misc Panel) 159H 05/30/19 10:17: Immature Granulocyte % (Auto) 0.2, White Blood Count 8.3, Red Blood Count 3.91L, Hemoglobin 11.9L, Hematocrit 36.2L, Mean Corpuscular Volume 92.6, Mean Corpuscular Hemoglobin 30.4, Mean Corpuscular Hemoglobin Concent 32.9, Red Cell Distribution Width 12.7, Platelet Count 297, Neutrophils (%) (Auto) 73.3H, Lymphocytes (%) (Auto) 16.5L, Monocytes (%) (Auto) 7.0H, Eosinophils (%) (Auto) 2.5, Basophils (%) (Auto) 0.5, Neutrophils # (Auto) 6.1, Lymphocytes # (Auto) 1.4L, Monocytes # (Auto) 0.6, Eosinophils # (Auto) 0.2, Basophils # (Auto) 0.0, Nucleated Red Blood Cells % (auto) 0.0, Anion Gap 4L, Glomerular Filtration Rate > 60.0, Blood Urea Nitrogen 11, Creatinine 0.74, Sodium Level 138, Potassium Level 3.7, Chloride Level 100, Carbon Dioxide Level 34H, Calcium Level 9.1 05/30/19 10:42: Bedside Glucose (Misc Panel) 190H 05/30/19 16:38: Bedside Glucose (Misc Panel) 204H Microbiology Microbiology 05/21/19 Stool Occult Blood (SUSAN) - Final, Complete Current Medications Current Medications Current Medications Medications (Trade) Dose Ordered Sig/Maricruz Route PRN Reason Start Time Stop Time Status Last Admin Dose Admin Acetaminophen (Tylenol Suspension) 650 mg Q4HP PRN GT PAIN OR FEVER 05/10/19 12:45 05/24/19 15:53 DC 05/22/19 00:13 Acetaminophen (Tylenol Suspension) 650 mg Q4HP PRN PO PAIN OR FEVER 05/24/19 16:00 Albuterol/ Ipratropium (Duoneb (Ipr 0.5mg/Alb 2.5mg)) 3 ml RBID NEB 05/11/19 08:00 05/12/19 12:31 DC 05/12/19 07:28 Amlodipine Besylate (Norvasc) 2.5 mg QHS PO 05/20/19 21:00 05/23/19 06:46 DC 05/22/19 18:33 Amlodipine Besylate (Norvasc) 5 mg BID PO 05/30/19 09:00 05/30/19 12:19 Amlodipine Besylate (Norvasc) 5 mg DAILY@1700 PO 05/23/19 17:00 05/30/19 10:21 DC 05/29/19 17:24 Artificial Tears (Akwa Tears) 2 drop QID OU 05/10/19 13:00 05/30/19 16:51 Aspirin (Aspirin Chewable) 81 mg DAILY PEG 05/11/19 09:00 05/23/19 18:08 DC 05/23/19 07:59 Aspirin (Ecotrin) 81 mg DAILY PO 05/30/19 09:00 05/30/19 08:07 Atorvastatin Calcium (Lipitor) 80 mg DAILY GT 05/11/19 09:00 05/24/19 15:53 DC 05/24/19 07:47 Atorvastatin Calcium (Lipitor) 80 mg DAILY PO 05/25/19 09:00 05/30/19 08:07 Carbamide Peroxide (Debrox) 5 drop PCHS XX 05/10/19 18:30 05/14/19 18:29 Cancel Clopidogrel Bisulfate (PLAVix) 75 mg DAILY PO 05/11/19 09:00 05/30/19 08:07 Dextrose (Dextrose 50%) 25 ml ASDIRECTED PRN IV SEE LABEL COMMENTS 05/10/19 12:45 05/18/19 12:25 DC Dextrose (Dextrose 50%) 25 ml ASDIRECTED PRN IV SEE LABEL COMMENTS 05/17/19 10:30 Dextrose/Sodium Chloride 1,000 ml @ 75 mls/hr [id number] IV 05/12/19 18:45 05/14/19 13:16 DC 05/14/19 06:30 Doxazosin Mesylate (Cardura) 2 mg DAILY GT 05/12/19 09:00 05/24/19 15:53 DC 05/24/19 05:27 Doxazosin Mesylate (Cardura) 2 mg DAILY PO 05/11/19 09:00 05/11/19 11:43 DC 05/11/19 07:58 Doxazosin Mesylate (Cardura) 2 mg DAILY PO 05/25/19 09:00 05/30/19 17:25 DC 05/30/19 08:07 Doxazosin Mesylate (Cardura) 4 mg DAILY PO 05/31/19 09:00 Enoxaparin Sodium (Lovenox) 40 mg DAILY SC 05/11/19 09:00 05/23/19 15:34 DC 05/23/19 08:03 Fluoxetine HCl (PROzac) 20 mg QHS GT 05/11/19 21:00 05/24/19 15:53 DC 05/23/19 21:04 Fluoxetine HCl (PROzac) 20 mg QHS PO 05/24/19 21:00 05/29/19 20:17 Glucagon (Glucagon) 1 mg ASDIRECTED PRN SC SEE LABEL COMMENTS 05/10/19 12:45 05/18/19 12:25 DC Glucagon (Glucagon) 1 mg ASDIRECTED PRN SC SEE LABEL COMMENTS 05/17/19 10:30 Glucose (Glucose) 16 GM ASDIRECTED PRN PO SEE LABEL COMMENTS 05/10/19 12:45 05/18/19 12:25 DC Glucose (Glucose) 16 GM ASDIRECTED PRN PO SEE LABEL COMMENTS 05/17/19 10:30 Guaifenesin (Robitussin) 10 ml BID GT 05/11/19 09:00 05/24/19 12:16 DC 05/24/19 07:46 Home Med (Med Rec Complete!) ASDIRECTED XX 05/10/19 13:30 05/10/19 13:30 DC Hydralazine HCl (Apresoline) 20 mg TID PO 05/16/19 09:00 05/18/19 16:30 DC 05/18/19 16:16 Hydralazine HCl (Apresoline) 40 mg Q6H PO 05/26/19 12:00 05/30/19 02:08 DC 05/30/19 00:04 Hydralazine HCl (Apresoline) 40 mg QID PO 05/23/19 13:00 05/26/19 10:08 DC 05/26/19 06:07 Hydralazine HCl (Apresoline) 40 mg TID PO 05/18/19 21:00 05/23/19 12:05 DC 05/23/19 08:04 Hydralazine HCl (Apresoline) 50 mg Q6H PO 05/30/19 06:00 05/30/19 02:28 DC Hydralazine HCl (Apresoline) 50 mg Q6H PO 05/30/19 06:00 05/30/19 16:50 Hydralazine HCl (Apresoline) 50 mg TID PO 05/19/19 09:00 05/19/19 17:00 DC 05/19/19 08:29 Insulin Detemir (Levemir Insulin) 5 units DAILY@0000 [place] 05/12/19 00:00 05/17/19 10:31 DC 05/16/19 00:10 Insulin Detemir (Levemir Insulin) 10 units QHS SC 05/10/19 21:00 05/11/19 11:56 DC Insulin Human Lispro (HumaLOG INSULIN) SEE PROTOCOL TABLE AC [place] 05/10/19 17:30 05/11/19 11:46 DC 05/11/19 07:56 Insulin Human Lispro (HumaLOG INSULIN) SEE PROTOCOL TABLE AC [place] 05/17/19 07:30 05/30/19 16:51 Insulin Human Lispro (HumaLOG INSULIN) SEE PROTOCOL TABLE Q6H [place] 05/11/19 12:00 05/17/19 10:31 DC 05/17/19 06:23 Insulin Human Lis[facility] (HumaLOG [facility]ULIN) [facility] 21:00 05/11/19 11:46 DC Insulin Human Lispro (HumaLOG INSULIN) SEE PROTOCOL TABLE [facility] 05/17/19 21:00 Lansoprazole (First-Lansoprazole Oral Suspension) 30 mg BID PEG 05/11/19 21:00 05/24/19 15:53 DC 05/24/19 07:48 Lansoprazole (First-Lansoprazole Oral Suspension) 30 mg BID PO 05/24/19 21:00 05/30/19 08:08 Lansoprazole (First-Lansoprazole Oral Suspension) 30 mg DAILY PEG 05/10/19 09:00 05/11/19 11:46 DC 05/11/19 07:57 Levetiracetam (Keppra Oral Solution) 250 mg BID GT 05/24/19 18:15 05/24/19 18:59 DC 05/24/19 18:50 Levetiracetam (Keppra Oral Solution) 250 mg BID PO 05/24/19 21:00 05/26/19 17:36 DC 05/26/19 08:15 Levetiracetam (Keppra) 500 mg BID PO 05/26/19 21:00 05/30/19 08:07 Levofloxacin (Levaquin) 750 mg DAILY@06 GT 05/11/19 10:30 05/17/19 06:01 DC 05/17/19 06:23 Lidocaine/ Diphenhydr/Alum/ Mg/Simeth (Magic Mouthwash) 5ml AC SSP 05/11/19 07:30 05/11/19 11:43 DC 05/11/19 07:54 Lisinopril (Prinivil) 5 mg DAILY GT 05/12/19 09:00 05/12/19 11:05 DC 05/12/19 09:31 Lisinopril (Prinivil) 5 mg DAILY PO 05/11/19 09:00 05/11/19 11:43 DC 05/11/19 07:59 Lisinopril (Prinivil) 10 mg DAILY GT 05/21/19 09:00 05/24/19 09:40 DC 05/24/19 07:47 Lisinopril (Prinivil) 20 mg DAILY GT 05/13/19 09:00 05/20/19 10:38 DC 05/20/19 08:54 Lisinopril (Prinivil) 20 mg QHS GT 05/24/19 21:00 05/24/19 15:53 DC Lisinopril (Prinivil) 20 mg QHS PO 05/24/19 21:00 05/29/19 20:17 Lorazepam (Ativan) 1 mg Q6HP PRN IM AGITATION 05/12/19 09:15 05/23/19 09:00 DC Lorazepam (Ativan) 2 mg Q4HP PRN IM SEIZURES 05/24/19 19:45 Miscellaneous (Unresolved Clarification Entry) SEE LABEL COMMENTS DAILY XX 05/22/19 09:00 05/22/19 15:57 DC Miscellaneous (Unresolved Patient Own Med Order) SEE LABEL COMMENTS DAILY XX 05/12/19 09:00 05/15/19 14:52 DC Morphine Sulfate (Roxanol) 5 mg Q2HP PRN SL PAIN 05/12/19 16:00 05/18/19 11:04 DC 05/12/19 16:23 Patient Own Medication (Patient'S Own Med) SWISH AND SPIT 5 DROPS... [facility] SSP 05/10/19 18:30 05/15/19 18:17 DC Patient Own Medication (Patient'S Own Med) SWISH AND SPIT 5 DROPS... [facility] SSP 05/15/19 18:30 05/30/19 16:51 Propranolol HCl (Inderal Liquid) 10 mg TID PO 05/11/19 21:00 05/20/19 10:38 DC 05/20/19 08:52 Tamsulosin HCl (Flomax) 0.4 mg BID PO 05/18/19 21:00 05/20/19 10:38 DC 05/20/19 08:54 Tamsulosin HCl (Flomax) 0.4 mg DAILY PO 05/18/19 10:00 05/18/19 12:59 DC 05/18/19 10:20 Tamsulosin HCl (Flomax) 0.4 mg QHS PO 05/20/19 21:00 05/22/19 21:56 DC 05/22/19 21:14 Tamsulosin HCl (Flomax) 0.8 mg QHS PO 05/23/19 21:00 05/29/19 20:16 Trazodone HCl (Desyrel) 25 mg Q6HP PRN GT AGITATION 05/11/19 11:45 05/24/19 15:53 DC 05/11/19 18:36 Trazodone HCl (Desyrel) 25 mg Q6HP PRN PO AGITATION 05/10/19 12:45 05/11/19 11:43 DC Trazodone HCl (Desyrel) 25 mg Q6HP PRN PO AGITATION 05/24/19 16:00 Trazodone HCl (Desyrel) 25 mg QHS GT 05/11/19 21:00 05/12/19 09:07 DC 05/11/19 20:53 Trazodone HCl (Desyrel) 25 mg QHS PO 05/10/19 21:00 05/11/19 11:43 DC 05/10/19 20:39 Trazodone HCl (Desyrel) 50 mg QHS GT 05/12/19 21:00 05/24/19 17:35 DC 05/23/19 21:05 Trazodone HCl (Desyrel) 50 mg QHS PO 05/24/19 21:00 05/29/19 20:17 SHARAN HOOVER MD May 30, 2019 17:38
--- NOTE | 2019-05-30 17:41 | IPNPDOC ---
PM&R Progress Note DATE OF SERVICE: May 30, 2019 [employer] Progress Note Subjective: REVIEW OF SYSTEMS: The following is a completed review of systems and has been reviewed. Review of systems otherwise unremarkable. PAIN: Patient self reports no pain EYES: +visual deficit EARS, NOSE, & THROAT:+dysphagia CARDIOVASCULAR: Denies chest pain or palpitations PULMONARY: Denies shortness of breath GASTROINTESTINAL: Denies constipation/diarrhea GENITOURINARY: +urinary retention (gradually improving) MUSCULOSKELETAL: no joint pain/deformities NEUROLOGICAL:+stroke HEMATOLOGICAL: no easy bruising SKIN: PeG site PSYCHIATRIC: +confused (improving) All other review of systems found to be negative. PHYSICAL EXAMINATION: VITAL SIGNS: Please see below. GENERAL: Pleasant and cooperative. No acute distress. HEENT: PERRL. Extraocular movements impaired, eyes fixed inferiorly and to the right, able to cross midline, Clear conjunctiva CARDIOVASCULAR: Regular rate and rhythm. No murmurs, rubs, or gallops LUNGS: Clear to auscultation bilaterally. No wheezes. No rhonchi ABDOMEN: Soft, nontender, nondistended. Positive bowel sounds. Normal active bowel sounds +PEG, no guarding NEUROLOGICAL: Alert and oriented to self only . 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 4/5 strength in left lower extremity. SKIN:no rash ASSESSMENT:63-year-old M with past medical history of HTN and DM who presents status post stroke PLAN: 1. Rehab: PT strengthen, stretch, maintain ROM bilat LE, advance gait training, ambulating with hand-held assist/RW, able to propel his own wheelchair OT strengthen, stretch, maintain ROM bilat UE, adapt therapies for visual deficits GAMES DEALER: advance diet when safe, cognitive evaluation and treat aphasia, MBS 05/16/19, tolerated honey thickened and puree, ok to advance to level 2 and nectar today per GAMES DEALER recs 2. 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 Wilkins neuro recs appreciated -patient with left arm tremor with EEG on 05/24/19 showing slowing without epileptiform activity, patient started on Keppra per neuro recs, currently doses 500mg BID -c/u Prozac for motor recovery 3. Cardiac: pmh HTN, c/u BP meds and adjust prn, medicine consulted to assist in management -vacillating BPs, c/u hyrdralazine increased to 50mg, increased to QID with hold parameters, c/u lisinopril, norvasc, will increase cardura to 4mg daily -renal US megative for renal artery stenosis -will discuss possibility of in-house loop recorder placement with cardiology for possible cryptogenic stroke 4. Resp: encourage incentive spirometry, admission CXR +left lower lobe infiltrate, s/p Levofloxacin, Duonebs and Guaifenesin- no leukocytosis at this point, will continue to monitor 5. Endo: pmh DM, cu ISS FS ac and qhs 6. : urinary retention with Estrada placed per [facility] urology, did trial of void, however patient still retaining despite being on Cardura and Flomax, will restart Estrada in setting of fluctuating BPs 7. DVT ppx: Lovenox and TEDs, admission Dopplers negative 8. GI ppx: Lansoprazole BID -patient pulled his PEG 05/12/19 and replaced at bedside by surgery, then replaced in OR on 05/13/19, mild leukocytosis resolved, abdomen soft, afebrile, will continue to monitor for peritonitis-stable 9. Nutrition: PEG in place, however diet advanced to po, eating well 10. Skin: turn q2h and monitor for skin break down 11. Psych: episodes of agitation, trazodone ordered prn, insomnia c/u trazodone 25mg qHS standing -s/p Propranolol agitation improving overall -may use Ativan IM prn agitation if trazodone does not work -avoid overstimulating and adjust environment prn 12. Dispo: 06/03/19 to home with 24-7 Allergies Coded Allergies: No Known Allergies (Unverified , 05/10/19) Vital Signs Vital Signs Date Time Temp Pulse Resp B/P (MAP) Pulse Ox O2 Delivery O2 Flow Rate FiO2 05/30/19 16:50 158/64 05/30/19 16:48 63 05/30/19 14:00 97.1 18 67 Laboratory Data CBC/BMP Laboratory Tests 05/30/19 10:17 Red Blood Count 3.91 L, Mean Corpuscular Volume 92.6, Mean Corpuscular Hemoglobin 30.4, Mean Corpuscular Hemoglobin Concent 32.9, Red Cell Distribution Width 12.7, Neutrophils (%) (Auto) 73.3 H, Lymphocytes (%) (Auto) 16.5 L, Monocytes (%) (Auto) 7.0 H, Eosinophils (%) (Auto) 2.5, Basophils (%) (Auto) 0.5, Neutrophils # (Auto) 6.1, Lymphocytes # (Auto) 1.4 L, Monocytes # (Auto) 0.6, Eosinophils # (Auto) 0.2, Basophils # (Auto) 0.0, Calcium Level 9.1 Labs 24H Laboratory Tests 2 05/29/19 20:07: Bedside Glucose (Misc Panel) 225H 05/30/19 06:01: Bedside Glucose (Misc Panel) 159H 05/30/19 10:17: Immature Granulocyte % (Auto) 0.2, White Blood Count 8.3, Red Blood Count 3.91L, Hemoglobin 11.9L, Hematocrit 36.2L, Mean Corpuscular Volume 92.6, Mean Corpuscular Hemoglobin 30.4, Mean Corpuscular Hemoglobin Concent 32.9, Red Cell Distribution Width 12.7, Platelet Count 297, Neutrophils (%) (Auto) 73.3H, Lymphocytes (%) (Auto) 16.5L, Monocytes (%) (Auto) 7.0H, Eosinophils (%) (Auto) 2.5, Basophils (%) (Auto) 0.5, Neutrophils # (Auto) 6.1, Lymphocytes # (Auto) 1.4L, Monocytes # (Auto) 0.6, Eosinophils # (Auto) 0.2, Basophils # (Auto) 0.0, Nucleated Red Blood Cells % (auto) 0.0, Anion Gap 4L, Glomerular Filtration Rate > 60.0, Blood Urea Nitrogen 11, Creatinine 0.74, Sodium Level 138, Potassium Level 3.7, Chloride Level 100, Carbon Dioxide Level 34H, Calcium Level 9.1 05/30/19 10:42: Bedside Glucose (Misc Panel) 190H 05/30/19 16:38: Bedside Glucose (Misc Panel) 204H Microbiology Microbiology 05/21/19 Stool Occult Blood (SUSAN) - Final, Complete Current Medications Current Medications Current Medications Medications (Trade) Dose Ordered Sig/Maricruz Route PRN Reason Start Time Stop Time Status Last Admin Dose Admin Acetaminophen (Tylenol Suspension) 650 mg Q4HP PRN GT PAIN OR FEVER 05/10/19 12:45 05/24/19 15:53 DC 05/22/19 00:13 Acetaminophen (Tylenol Suspension) 650 mg Q4HP PRN PO PAIN OR FEVER 05/24/19 16:00 Albuterol/ Ipratropium (Duoneb (Ipr 0.5mg/Alb 2.5mg)) 3 ml RBID NEB 05/11/19 08:00 05/12/19 12:31 DC 05/12/19 07:28 Amlodipine Besylate (Norvasc) 2.5 mg QHS PO 05/20/19 21:00 05/23/19 06:46 DC 05/22/19 18:33 Amlodipine Besylate (Norvasc) 5 mg BID PO 05/30/19 09:00 05/30/19 12:19 Amlodipine Besylate (Norvasc) 5 mg DAILY@1700 PO 05/23/19 17:00 05/30/19 10:21 DC 05/29/19 17:24 Artificial Tears (Akwa Tears) 2 drop QID OU 05/10/19 13:00 05/30/19 16:51 Aspirin (Aspirin Chewable) 81 mg DAILY PEG 05/11/19 09:00 05/23/19 18:08 DC 05/23/19 07:59 Aspirin (Ecotrin) 81 mg DAILY PO 05/30/19 09:00 05/30/19 08:07 Atorvastatin Calcium (Lipitor) 80 mg DAILY GT 05/11/19 09:00 05/24/19 15:53 DC 05/24/19 07:47 Atorvastatin Calcium (Lipitor) 80 mg DAILY PO 05/25/19 09:00 05/30/19 08:07 Carbamide Peroxide (Debrox) 5 drop PCHS XX 05/10/19 18:30 05/14/19 18:29 Cancel Clopidogrel Bisulfate (PLAVix) 75 mg DAILY PO 05/11/19 09:00 05/30/19 08:07 Dextrose (Dextrose 50%) 25 ml ASDIRECTED PRN IV SEE LABEL COMMENTS 05/10/19 12:45 05/18/19 12:25 DC Dextrose (Dextrose 50%) 25 ml ASDIRECTED PRN IV SEE LABEL COMMENTS 05/17/19 10:30 Dextrose/Sodium Chloride 1,000 ml @ 75 mls/hr [id number] IV 05/12/19 18:45 05/14/19 13:16 DC 05/14/19 06:30 Doxazosin Mesylate (Cardura) 2 mg DAILY GT 05/12/19 09:00 05/24/19 15:53 DC 05/24/19 05:27 Doxazosin Mesylate (Cardura) 2 mg DAILY PO 05/11/19 09:00 05/11/19 11:43 DC 05/11/19 07:58 Doxazosin Mesylate (Cardura) 2 mg DAILY PO 05/25/19 09:00 05/30/19 17:25 DC 05/30/19 08:07 Doxazosin Mesylate (Cardura) 4 mg DAILY PO 05/31/19 09:00 Enoxaparin Sodium (Lovenox) 40 mg DAILY SC 05/11/19 09:00 05/23/19 15:34 DC 05/23/19 08:03 Fluoxetine HCl (PROzac) 20 mg QHS GT 05/11/19 21:00 05/24/19 15:53 DC 05/23/19 21:04 Fluoxetine HCl (PROzac) 20 mg QHS PO 05/24/19 21:00 05/29/19 20:17 Glucagon (Glucagon) 1 mg ASDIRECTED PRN SC SEE LABEL COMMENTS 05/10/19 12:45 05/18/19 12:25 DC Glucagon (Glucagon) 1 mg ASDIRECTED PRN SC SEE LABEL COMMENTS 05/17/19 10:30 Glucose (Glucose) 16 GM ASDIRECTED PRN PO SEE LABEL COMMENTS 05/10/19 12:45 05/18/19 12:25 DC Glucose (Glucose) 16 GM ASDIRECTED PRN PO SEE LABEL COMMENTS 05/17/19 10:30 Guaifenesin (Robitussin) 10 ml BID GT 05/11/19 09:00 05/24/19 12:16 DC 05/24/19 07:46 Home Med (Med Rec Complete!) ASDIRECTED XX 05/10/19 13:30 05/10/19 13:30 DC Hydralazine HCl (Apresoline) 20 mg TID PO 05/16/19 09:00 05/18/19 16:30 DC 05/18/19 16:16 Hydralazine HCl (Apresoline) 40 mg Q6H PO 05/26/19 12:00 05/30/19 02:08 DC 05/30/19 00:04 Hydralazine HCl (Apresoline) 40 mg QID PO 05/23/19 13:00 05/26/19 10:08 DC 05/26/19 06:07 Hydralazine HCl (Apresoline) 40 mg TID PO 05/18/19 21:00 05/23/19 12:05 DC 05/23/19 08:04 Hydralazine HCl (Apresoline) 50 mg Q6H PO 05/30/19 06:00 05/30/19 02:28 DC Hydralazine HCl (Apresoline) 50 mg Q6H PO 05/30/19 06:00 05/30/19 16:50 Hydralazine HCl (Apresoline) 50 mg TID PO 05/19/19 09:00 05/19/19 17:00 DC 05/19/19 08:29 Insulin Detemir (Levemir Insulin) 5 units DAILY@0000 HI 05/12/19 00:00 05/17/19 10:31 DC 05/16/19 00:10 Insulin Detemir (Levemir Insulin) 10 units QHS SC 05/10/19 21:00 05/11/19 11:56 DC Insulin Human Lispro (HumaLOG INSULIN) SEE PROTOCOL TABLE AC HI 05/10/19 17:30 05/11/19 11:46 DC 05/11/19 07:56 Insulin Human Lispro (HumaLOG INSULIN) SEE PROTOCOL TABLE AC HI 05/17/19 07:30 05/30/19 16:51 Insulin Human Lispro (HumaLOG INSULIN) SEE PROTOCOL TABLE Q6H HI 05/11/19 12:00 05/17/19 10:31 DC 05/17/19 06:23 Insulin Human Lispro (HumaLOG INSULIN) [facility] 05[facility] 21:00 05/11/19 11:46 DC Insulin Human Lispro (HumaLOG INSULIN) [facility] 05/17[facility] 21:00 Lansoprazole (First-Lansoprazole Oral Suspension) 30 mg BID PEG 05/11/19 21:00 05/24/19 15:53 DC 05/24/19 07:48 Lansoprazole (First-Lansoprazole Oral Suspension) 30 mg BID PO 05/24/19 21:00 05/30/19 08:08 Lansoprazole (First-Lansoprazole Oral Suspension) 30 mg DAILY PEG 05/10/19 09:00 05/11/19 11:46 DC 05/11/19 07:57 Levetiracetam (Keppra Oral Solution) 250 mg BID GT 05/24/19 18:15 05/24/19 18:59 DC 05/24/19 18:50 Levetiracetam (Keppra Oral Solution) 250 mg BID PO 05/24/19 21:00 05/26/19 17:36 DC 05/26/19 08:15 Levetiracetam (Keppra) 500 mg BID PO 05/26/19 21:00 05/30/19 08:07 Levofloxacin (Levaquin) 750 mg DAILY@06 GT 05/11/19 10:30 05/17/19 06:01 DC 05/17/19 06:23 Lidocaine/ Diphenhydr/Alum/ Mg/Simeth (Magic Mouthwash) 5ml AC SSP 05/11/19 07:30 05/11/19 11:43 DC 05/11/19 07:54 Lisinopril (Prinivil) 5 mg DAILY GT 05/12/19 09:00 05/12/19 11:05 DC 05/12/19 09:31 Lisinopril (Prinivil) 5 mg DAILY PO 05/11/19 09:00 05/11/19 11:43 DC 05/11/19 07:59 Lisinopril (Prinivil) 10 mg DAILY GT 05/21/19 09:00 05/24/19 09:40 DC 05/24/19 07:47 Lisinopril (Prinivil) 20 mg DAILY GT 05/13/19 09:00 05/20/19 10:38 DC 05/20/19 08:54 Lisinopril (Prinivil) 20 mg QHS GT 05/24/19 21:00 05/24/19 15:53 DC Lisinopril (Prinivil) 20 mg QHS PO 05/24/19 21:00 05/29/19 20:17 Lorazepam (Ativan) 1 mg Q6HP PRN IM AGITATION 05/12/19 09:15 05/23/19 09:00 DC Lorazepam (Ativan) 2 mg Q4HP PRN IM SEIZURES 05/24/19 19:45 Miscellaneous (Unresolved Clarification Entry) SEE LABEL COMMENTS DAILY XX 05/22/19 09:00 05/22/19 15:57 DC Miscellaneous (Unresolved Patient Own Med Order) SEE LABEL COMMENTS DAILY XX 05/12/19 09:00 05/15/19 14:52 DC Morphine Sulfate (Roxanol) 5 mg Q2HP PRN SL PAIN 05/12/19 16:00 05/18/19 11:04 DC 05/12/19 16:23 Patient Own Medication (Patient'S Own Med) SWISH AND SPIT 5 DROPS... [facility] SSP 05/10/19 18:30 05/15/19 18:17 DC Patient Own Medication (Patient'S Own Med) SWISH AND SPIT 5 DROPS... [facility] 05/15/19 18:30 05/30/19 16:51 Propranolol HCl (Inderal Liquid) 10 mg TID PO 05/11/19 21:00 05/20/19 10:38 DC 05/20/19 08:52 Tamsulosin HCl (Flomax) 0.4 mg BID PO 05/18/19 21:00 05/20/19 10:38 DC 05/20/19 08:54 Tamsulosin HCl (Flomax) 0.4 mg DAILY PO 05/18/19 10:00 05/18/19 12:59 DC 05/18/19 10:20 Tamsulosin HCl (Flomax) 0.4 mg QHS PO 05/20/19 21:00 05/22/19 21:56 DC 05/22/19 21:14 Tamsulosin HCl (Flomax) 0.8 mg QHS PO 05/23/19 21:00 05/29/19 20:16 Trazodone HCl (Desyrel) 25 mg Q6HP PRN GT AGITATION 05/11/19 11:45 05/24/19 15:53 DC 05/11/19 18:36 Trazodone HCl (Desyrel) 25 mg Q6HP PRN PO AGITATION 05/10/19 12:45 05/11/19 11:43 DC Trazodone HCl (Desyrel) 25 mg Q6HP PRN PO AGITATION 05/24/19 16:00 Trazodone HCl (Desyrel) 25 mg QHS GT 05/11/19 21:00 05/12/19 09:07 DC 05/11/19 20:53 Trazodone HCl (Desyrel) 25 mg QHS PO 05/10/19 21:00 05/11/19 11:43 DC 05/10/19 20:39 Trazodone HCl (Desyrel) 50 mg QHS GT 05/12/19 21:00 05/24/19 17:35 DC 05/23/19 21:05 Trazodone HCl (Desyrel) 50 mg QHS PO 05/24/19 21:00 05/29/19 20:17 SHARAN HOOVER MD May 30, 2019 17:41
[2019-05-30] MEDS: FLUoxetine 20 MG CAP PO SCH (20:58)
[2019-05-30] MEDS: LISINOPRIL 20 MG TAB PO SCH (20:59)
[2019-05-30] MEDS: TAMSULOSIN 0.4 MG CAP PO SCH (20:59)
[2019-05-30] MEDS: traZODone 50 MG TAB PO SCH (20:59)
[2019-05-31] MEDS: **hydrALAZINE** 50 MG TAB PO SCH ×5 (06:00→23:56)
[2019-05-31 06:30] VITALS: BP 139/67
[2019-05-31] MEDS: HumaLOG INSULIN (NovoLOG) PER UNIT SC SCH ×4 (07:48→20:34)
[2019-05-31] MEDS: ASPIRIN 81 MG ENTERIC TAB PO SCH (08:47)
[2019-05-31] MEDS: LANSOPRAZOLE SUSPENSION 30 MG/10 ML ORAL SYRINGE (FIRST-LANSOPRAZOLE) PO SCH ×2 (08:47→20:23)
[2019-05-31] MEDS: levETIRAcetam 250MG TABLET (KEPPRA) PO SCH ×2 (08:47→20:22)
[2019-05-31] MEDS: DOXAZOSIN MESYLATE 4 MG TAB PO SCH (08:49)
[2019-05-31] MEDS: ATORVASTATIN 20 MG TAB PO SCH (08:50)
[2019-05-31] MEDS: amLODIPine 5 MG TAB PO SCH ×2 (08:50→20:23)
[2019-05-31] MEDS: CLOPIDOGREL 75 MG TAB PO SCH (08:50)
[2019-05-31] MEDS: POLYVINYL ALCOHOL OPHTH SOLN 15 ML(LIQUITEARS) OU SCH ×4 (08:51→20:24)
[2019-05-31] MEDS: GLY OXIDE SSP SCH ×4 (08:51→20:34)
[2019-05-31 09:00] VITALS: BP 112/67
[2019-05-31 12:25] VITALS: BP 118/56
--- NOTE | 2019-05-31 12:25 | IPNPDOC ---
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 REVIEW OF SYSTEMS: The following is a completed review of systems and has been reviewed. Review of systems otherwise unremarkable. PAIN: Patient self reports no pain EYES: +visual deficit EARS, NOSE, & THROAT:+dysphagia CARDIOVASCULAR: Denies chest pain or palpitations PULMONARY: Denies shortness of breath GASTROINTESTINAL: Denies constipation/diarrhea GENITOURINARY: +urinary retention (gradually improving) MUSCULOSKELETAL: no joint pain/deformities NEUROLOGICAL:+stroke HEMATOLOGICAL: no easy bruising SKIN: PeG site PSYCHIATRIC: +confused (improving) All other review of systems found to be negative. PHYSICAL EXAMINATION: VITAL SIGNS: Please see below. GENERAL: Pleasant and cooperative. No acute distress. HEENT: PERRL. Extraocular movements impaired, eyes fixed inferiorly and to the right, able to cross midline, Clear conjunctiva CARDIOVASCULAR: Regular rate and rhythm. No murmurs, rubs, or gallops LUNGS: Clear to auscultation bilaterally. No wheezes. No rhonchi ABDOMEN: Soft, nontender, nondistended. Positive bowel sounds. Normal active bowel sounds +PEG, no guarding NEUROLOGICAL: Alert and oriented to self only . 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 4/5 strength in left lower extremity. SKIN:no rash ASSESSMENT:63-year-old M with past medical history of HTN and DM who presents status post stroke PLAN: 1. Rehab: PT strengthen, stretch, maintain ROM bilat LE, advance gait training, ambulating with hand-held assist/RW, able to propel his own wheelchair OT strengthen, stretch, maintain ROM bilat UE, adapt therapies for visual deficits [employer]: advance diet when safe, cognitive evaluation and treat aphasia, MBS 05/16/19, tolerated honey thickened and puree, advanced to level 2 and nectar today per [employer] recs 2. Neuro: s/p bilateral vertebrobasilar infarcts thought to be due to emboli, with resulting dysphagia, aphasia, ocular deficits, and left sided weakness -CT scan on 05/21/19 ordered by medicine showing new petechial hemorrhage in the right LOOP TACKER territory, holding ASA, repeat CTH ordered 05/23/19 showing no increase in hemorrhage, repeat CTH 05-26-19 showing no increase in hemorrhage, ASA restarted, Dr. Claudette reddy recdalila appreciated- will follow-up as outpatient -patient with left arm tremor with EEG on 05/24/19 showing slowing without epileptiform activity, patient started on Keppra per neuro recs, currently doses 500mg BID, no further reported -c/u Prozac for motor recovery 3. Cardiac: pmh HTN, c/u BP meds and adjust prn, medicine consulted to assist in management -vacillating BPs, c/u hyrdralazine increased to 50mg, increased to QID with hold parameters, c/u lisinopril, norvasc, increased cardura to 4mg daily-improving -renal US negative for renal artery stenosis -will refer to outpatient cardiology for possible loop recorder placement 4. Resp: encourage incentive spirometry, admission CXR +left lower lobe infiltrate, s/p Levofloxacin, Duonebs and Guaifenesin- no leukocytosis at this point, will continue to monitor 5. Endo: pmh DM, cu ISS FS ac and qhs 6. : urinary retention with Estrada placed per [facility], did trial of void, however patient still retaining despite being on Cardura and Flomax, restarted Estrada in setting of fluctuating BPs 7. DVT ppx: Lovenox and TEDs, admission Dopplers negative 8. GI ppx: Lansoprazole BID -patient pulled his PEG 05/12/19 and replaced at bedside by surgery, then replaced in OR on 05/13/19, mild leukocytosis resolved, abdomen soft, afebrile, will continue to monitor for peritonitis-stable 9. Nutrition: PEG in place, however diet advanced to po, eating well 10. Skin: turn q2h and monitor for skin break down 11. Psych: episodes of agitation, trazodone ordered prn, insomnia c/u trazodone 25mg qHS standing -s/p Propranolol agitation improving overall -avoid overstimulating and adjust environment prn 12. Dispo: 06/03/19 to home with 24-7, family training provided Allergies Coded Allergies: No Known Allergies (Unverified , 05/10/19) Vital Signs Vital Signs Date Time Temp Pulse Resp B/P (MAP) Pulse Ox O2 Delivery O2 Flow Rate FiO2 05/31/19 11:54 118/56 05/31/19 09:00 63 18 05/31/19 06:30 97.3 98 Laboratory Data Labs 24H Laboratory Tests 2 05/30/19 16:38: Bedside Glucose (Misc Panel) 204H 05/30/19 19:33: Bedside Glucose (Misc Panel) 261H 05/31/19 06:16: Bedside Glucose (Misc Panel) 180H 05/31/19 11:29: Bedside Glucose (Misc Panel) 165H Microbiology Microbiology 05/21/19 Stool Occult Blood (SUSAN) - Final, Complete Current Medications Current Medications Current Medications Medications (Trade) Dose Ordered Sig/Maricruz Route PRN Reason Start Time Stop Time Status Last Admin Dose Admin Acetaminophen (Tylenol Suspension) 650 mg Q4HP PRN GT PAIN OR FEVER 05/10/19 12:45 05/24/19 15:53 DC 05/22/19 00:13 Acetaminophen (Tylenol Suspension) 650 mg Q4HP PRN PO PAIN OR FEVER 05/24/19 16:00 Albuterol/ Ipratropium (Duoneb (Ipr 0.5mg/Alb 2.5mg)) 3 ml RBID NEB 05/11/19 08:00 05/12/19 12:31 DC 05/12/19 07:28 Amlodipine Besylate (Norvasc) 2.5 mg QHS PO 05/20/19 21:00 05/23/19 06:46 DC 05/22/19 18:33 Amlodipine Besylate (Norvasc) 5 mg BID PO 05/30/19 09:00 05/31/19 08:50 Amlodipine Besylate (Norvasc) 5 mg DAILY@1700 PO 05/23/19 17:00 05/30/19 10:21 DC 05/29/19 17:24 Artificial Tears (Akwa Tears) 2 drop QID OU 05/10/19 13:00 05/31/19 12:01 Aspirin (Aspirin Chewable) 81 mg DAILY PEG 05/11/19 09:00 05/23/19 18:08 DC 05/23/19 07:59 Aspirin (Ecotrin) 81 mg DAILY PO 05/30/19 09:00 05/31/19 08:47 Atorvastatin Calcium (Lipitor) 80 mg DAILY GT 05/11/19 09:00 05/24/19 15:53 DC 05/24/19 07:47 Atorvastatin Calcium (Lipitor) 80 mg DAILY PO 05/25/19 09:00 05/31/19 08:50 Carbamide Peroxide (Debrox) 5 drop PCHS XX 05/10/19 18:30 05/14/19 18:29 Cancel Clopidogrel Bisulfate (PLAVix) 75 mg DAILY PO 05/11/19 09:00 05/31/19 08:50 Dextrose (Dextrose 50%) 25 ml ASDIRECTED PRN IV SEE LABEL COMMENTS 05/10/19 12:45 05/18/19 12:25 DC Dextrose (Dextrose 50%) 25 ml ASDIRECTED PRN IV SEE LABEL COMMENTS 05/17/19 10:30 Dextrose/Sodium Chloride 1,000 ml @ 75 mls/hr [id number] IV 05/12/19 18:45 05/14/19 13:16 DC 05/14/19 06:30 Doxazosin Mesylate (Cardura) 2 mg DAILY GT 05/12/19 09:00 05/24/19 15:53 DC 05/24/19 05:27 Doxazosin Mesylate (Cardura) 2 mg DAILY PO 05/11/19 09:00 05/11/19 11:43 DC 05/11/19 07:58 Doxazosin Mesylate (Cardura) 2 mg DAILY PO 05/25/19 09:00 05/30/19 17:25 DC 05/30/19 08:07 Doxazosin Mesylate (Cardura) 4 mg DAILY PO 05/31/19 09:00 05/31/19 08:49 Enoxaparin Sodium (Lovenox) 40 mg DAILY SC 05/11/19 09:00 05/23/19 15:34 DC 05/23/19 08:03 Fluoxetine HCl (PROzac) 20 mg QHS GT 05/11/19 21:00 05/24/19 15:53 DC 05/23/19 21:04 Fluoxetine HCl (PROzac) 20 mg QHS PO 05/24/19 21:00 05/30/19 20:58 Glucagon (Glucagon) 1 mg ASDIRECTED PRN SC SEE LABEL COMMENTS 05/10/19 12:45 05/18/19 12:25 DC Glucagon (Glucagon) 1 mg ASDIRECTED PRN SC SEE LABEL COMMENTS 05/17/19 10:30 Glucose (Glucose) 16 GM ASDIRECTED PRN PO SEE LABEL COMMENTS 05/10/19 12:45 05/18/19 12:25 DC Glucose (Glucose) 16 GM ASDIRECTED PRN PO SEE LABEL COMMENTS 05/17/19 10:30 Guaifenesin (Robitussin) 10 ml BID GT 05/11/19 09:00 05/24/19 12:16 DC 05/24/19 07:46 Home Med (Med Rec Complete!) ASDIRECTED XX 05/10/19 13:30 05/10/19 13:30 DC Hydralazine HCl (Apresoline) 20 mg TID PO 05/16/19 09:00 05/18/19 16:30 DC 05/18/19 16:16 Hydralazine HCl (Apresoline) 40 mg Q6H PO 05/26/19 12:00 05/30/19 02:08 DC 05/30/19 00:04 Hydralazine HCl (Apresoline) 40 mg QID PO 05/23/19 13:00 05/26/19 10:08 DC 05/26/19 06:07 Hydralazine HCl (Apresoline) 40 mg TID PO 05/18/19 21:00 05/23/19 12:05 DC 05/23/19 08:04 Hydralazine HCl (Apresoline) 50 mg Q6H PO 05/30/19 06:00 05/30/19 02:28 DC Hydralazine HCl (Apresoline) 50 mg Q6H PO 05/30/19 06:00 05/30/19 16:50 Hydralazine HCl (Apresoline) 50 mg TID PO 05/19/19 09:00 05/19/19 17:00 DC 05/19/19 08:29 Insulin Detemir (Levemir Insulin) 5 units DAILY@0000 SC 05/12/19 00:00 05/17/19 10:31 DC 05/16/19 00:10 Insulin Detemir (Levemir Insulin) 10 units QHS SC 05/10/19 21:00 05/11/19 11:56 DC Insulin Human Lispro (HumaLOG INSULIN) SEE PROTOCOL TABLE AC AL 05/10/19 17:30 05/11/19 11:46 DC 05/11/19 07:56 Insulin Human Lispro (HumaLOG INSULIN) SEE PROTOCOL TABLE AC AL 05/17/19 07:30 05/31/19 12:00 Insulin Human Lispro (HumaLOG INSULIN) SEE PROTOCOL TABLE Q6H AL 05/11/19 12:00 05/17/19 10:31 DC 05/17/19 06:23 Insulin Human Lispro (HumaLOG INSULIN) SEE PROTOCOL TABLE QHS AL 05/10/19 21:00 05/11/19 11:46 DC Insulin Human Lispro (HumaLOG INSULIN) [facility] 05/17/19 21:00 05/30/19 20:58 Lansoprazole (First-Lansoprazole Oral Suspension) 30 mg BID PEG 05/11/19 21:00 05/24/19 15:53 DC 05/24/19 07:48 Lansoprazole (First-Lansoprazole Oral Suspension) 30 mg BID PO 05/24/19 21:00 05/31/19 08:47 Lansoprazole (First-Lansoprazole Oral Suspension) 30 mg DAILY PEG 05/10/19 09:00 05/11/19 11:46 DC 05/11/19 07:57 Levetiracetam (Keppra Oral Solution) 250 mg BID GT 05/24/19 18:15 05/24/19 18:59 DC 05/24/19 18:50 Levetiracetam (Keppra Oral Solution) 250 mg BID PO 05/24/19 21:00 05/26/19 17:36 DC 05/26/19 08:15 Levetiracetam (Keppra) 500 mg BID PO 05/26/19 21:00 05/31/19 08:47 Levofloxacin (Levaquin) 750 mg DAILY@06 GT 05/11/19 10:30 05/17/19 06:01 DC 05/17/19 06:23 Lidocaine/ Diphenhydr/Alum/ Mg/Simeth (Magic Mouthwash) 5ml AC SSP 05/11/19 07:30 05/11/19 11:43 DC 05/11/19 07:54 Lisinopril (Prinivil) 5 mg DAILY GT 05/12/19 09:00 05/12/19 11:05 DC 05/12/19 09:31 Lisinopril (Prinivil) 5 mg DAILY PO 05/11/19 09:00 05/11/19 11:43 DC 05/11/19 07:59 Lisinopril (Prinivil) 10 mg DAILY GT 05/21/19 09:00 05/24/19 09:40 DC 05/24/19 07:47 Lisinopril (Prinivil) 20 mg DAILY GT 05/13/19 09:00 05/20/19 10:38 DC 05/20/19 08:54 Lisinopril (Prinivil) 20 mg QHS GT 05/24/19 21:00 05/24/19 15:53 DC Lisinopril (Prinivil) 20 mg QHS PO 05/24/19 21:00 05/30/19 20:59 Lorazepam (Ativan) 1 mg Q6HP PRN IM AGITATION 05/12/19 09:15 05/23/19 09:00 DC Lorazepam (Ativan) 2 mg Q4HP PRN IM SEIZURES 05/24/19 19:45 05/31/19 08:36 DC Miscellaneous (Unresolved Clarification Entry) SEE LABEL COMMENTS DAILY XX 05/22/19 09:00 05/22/19 15:57 DC Miscellaneous (Unresolved Clarification Entry) SEE LABEL COMMENTS DAILY XX 05/30/19 09:00 Miscellaneous (Unresolved Patient Own Med Order) SEE LABEL COMMENTS DAILY XX 05/12/19 09:00 05/15/19 14:52 DC Morphine Sulfate (Roxanol) 5 mg Q2HP PRN SL PAIN 05/12/19 16:00 05/18/19 11:04 DC 05/12/19 16:23 Patient Own Medication (Patient'S Own Med) SWISH AND SPIT 5 DROPS... [facility] SSP 05/10/19 18:30 05/15/19 18:17 DC Patient Own Medication (Patient'S Own Med) SWISH AND SPIT 5 DROPS... [facility]SP 05/15/19 18:30 05/31/19 12:01 Propranolol HCl (Inderal Liquid) 10 mg TID PO 05/11/19 21:00 05/20/19 10:38 DC 05/20/19 08:52 Tamsulosin HCl (Flomax) 0.4 mg BID PO 05/18/19 21:00 05/20/19 10:38 DC 05/20/19 08:54 Tamsulosin HCl (Flomax) 0.4 mg DAILY PO 05/18/19 10:00 05/18/19 12:59 DC 05/18/19 10:20 Tamsulosin HCl (Flomax) 0.4 mg QHS PO 05/20/19 21:00 05/22/19 21:56 DC 05/22/19 21:14 Tamsulosin HCl (Flomax) 0.8 mg QHS PO 05/23/19 21:00 05/30/19 20:59 Trazodone HCl (Desyrel) 25 mg Q6HP PRN GT AGITATION 05/11/19 11:45 05/24/19 15:53 DC 05/11/19 18:36 Trazodone HCl (Desyrel) 25 mg Q6HP PRN PO AGITATION 05/10/19 12:45 05/11/19 11:43 DC Trazodone HCl (Desyrel) 25 mg Q6HP PRN PO AGITATION 05/24/19 16:00 Trazodone HCl (Desyrel) 25 mg QHS GT 05/11/19 21:00 05/12/19 09:07 DC 05/11/19 20:53 Trazodone HCl (Desyrel) 25 mg QHS PO 05/10/19 21:00 05/11/19 11:43 DC 05/10/19 20:39 Trazodone HCl (Desyrel) 50 mg QHS GT 05/12/19 21:00 05/24/19 17:35 DC 05/23/19 21:05 Trazodone HCl (Desyrel) 50 mg QHS PO 05/24/19 21:00 05/30/19 20:59 SHARAN HOOVER MD May 31, 2019 12:25
[2019-05-31 14:00] VITALS: BP 152/80
[2019-05-31 20:06] VITALS: BP 148/66
[2019-05-31] MEDS: traZODone 50 MG TAB PO SCH (20:22)
[2019-05-31] MEDS: FLUoxetine 20 MG CAP PO SCH (20:23)
[2019-05-31] MEDS: LISINOPRIL 20 MG TAB PO SCH (20:23)
[2019-05-31] MEDS: TAMSULOSIN 0.4 MG CAP PO SCH (20:23)
--- NOTE | 2019-05-31 21:07 | IPNPDOC ---
Subjective Date Seen The patient was seen on 05/31/19. Subjective Chief Complaint/HPI 63-year-old elderly male with hypertension and diabetes who was transferred to [facility] from [facility] where he presented with an acute ischemic bilateral thalamic, right occipital, right cerebellar stroke on 04/26/2019 when he was driving erratically. Due to dysphagia, the patient underwent feeding tube placement on 05/06/2019. Bubble study echo showed no intraatrial shunting, ejection fraction of 65 to 70%. He continued to have persistent dysarthria and disorientation and left sided hemianopia and left sided hemiparesis. The patient is transferred to acute ehabilitation unit for further rehabilitation. Since he had been at rehabilitation, the patient had malfunctioning feeding tube which was replaced here by general surgery. General: Reports: Malaise; Denies: ROS Unobtainable, Chills, Night Sweats, Fatigue, Normal Appetite, Other Symptoms Constitutional: Reports: Fatigue Eyes: Denies: Pain, Vision change, Conjunctivae inflammation, Eyelid inflammation, Redness, Other ENT: Denies: Head Aches, Ear Pain, Dysphagia, Sinus Congestion, Post Nasal Drip, Sore Throat, Epistaxis, Other Symptoms Pulmonary: Denies: Dyspnea, Cough, Pleuritic Chest Pain, Other Symptoms Cardiovascular: Denies: Chest Pain, Palpitations, Orthopnea, Paroxysmal Noc. Dyspnea, Edema, Lt Headedness, Other Symptoms Gastrointestinal: Reports: Constipation Genitourinary: Denies: Dysuria, Frequency, Incontinence, Hematuria, Retention, Other Symptoms Hematologic: Denies: Bruising, Bleeding Excessively, Petecchia, Purpura, Enlarged Lymph Nodes, Other Hematologic Endocrine: Denies: Polydipsia, Polyphagia, Polyuria, Heat Intolerance, Cold Intolerance, Other Endocrine Sx Neurological: Reports: Weakness Psych: Denies: Mood Normal, Anxiety, Depression, Memory Issues, Thoughts of Self Harm, Anger, Thoughts of Harming Other, Other Psych Assessment /Plan Assessment 63-year-old male with hypertension and diabetes who was transferred to [facility] from [facility] where he presented with an acute ischemic bilateral thalamic, right occipital, right cerebellar stroke on 04/26/2019 when he was driving erratically. PLAN S/P Acute CVA with residual left hemiparesis and hemianopia, dysarthria, dysphagia. in vertebrobasilar distribution thought to be embolic Bubble study negative thoughts about loop recorder placement. bilateral thalamic, right occipital, right cerebellar secondary to bilateral vertebral, basal, intracranial and extracranial artery disease in the setting of prior history of smoking, diabetes and hypertension. The patient has exhibited significant confusion and has pulled his feeding tube, which is now being replaced by surgery if it is in the correct position. He is continued on aspirin, Plavix and Lipitor according to neurology for treatment of his stroke. Hypertension. fluctuating probably related to his sun downing , some agitation in the evenings. Currently on Lisinopril propralol and hydralazine, doxazocin Type 2 diabetes. Currently on Lispro insulin sliding scale. Hypoglycemic protocol and Levemir insulin. Encephalopathy due to CVA improving but still gets irritable in the evenings Has feeding tube. For insomnia on trazodone. Propranolol for agitation which may have a component of dysautonomia in setting of stroke Acute urinary retension with Estrada in [facility] started on flomax bid. DVT prophylaxis in place. Plan/VTE VTE Prophylaxis Ordered?: Yes Plan Diet: Continue Current Activity: Continue Current Therapy: PT, OT, Speech Anticipated Discharge: Sub Acute Rehab VS, I&O, 24H, Fishbone Vital Signs/I&O Vital Signs Date Time Temp Pulse Resp B/P (MAP) Pulse Ox O2 Delivery O2 Flow Rate FiO2 05/31/19 20:23 71 148/66 05/31/19 20:06 97.1 18 98 I&O- Last 24 Hours up to 6 AM 05/31/19 05:59 Intake Total 1310 ml Output Total 2300 ml Balance -990 ml Laboratory Data 24H LABS Laboratory Tests 2 05/31/19 06:16: Bedside Glucose (Misc Panel) 180H 05/31/19 11:29: Bedside Glucose (Misc Panel) 165H Microbiology Microbiology 05/21/19 Stool Occult Blood (SUSAN) - Final, Complete KATERINA BAGLEY May 31, 2019 21:07
[2019-06-01] MEDS: **hydrALAZINE** 50 MG TAB PO SCH ×2 (06:02→11:43)
[2019-06-01 06:08] VITALS: BP 154/68
[2019-06-01] MEDS: GLY OXIDE SSP SCH ×4 (08:30→20:16)
[2019-06-01] MEDS: HumaLOG INSULIN (NovoLOG) PER UNIT SC SCH ×4 (09:25→20:16)
[2019-06-01] MEDS: metFORMIN (GLUCOPHAGE) 500 MG TAB PO SCH (09:26)
[2019-06-01] MEDS: LANSOPRAZOLE SUSPENSION 30 MG/10 ML ORAL SYRINGE (FIRST-LANSOPRAZOLE) PO SCH ×2 (09:26→20:14)
[2019-06-01] MEDS: ASPIRIN 81 MG ENTERIC TAB PO SCH (09:26)
[2019-06-01] MEDS: CLOPIDOGREL 75 MG TAB PO SCH (09:26)
[2019-06-01] MEDS: ATORVASTATIN 20 MG TAB PO SCH (09:27)
[2019-06-01] MEDS: amLODIPine 5 MG TAB PO SCH ×2 (09:27→20:15)
[2019-06-01] MEDS: levETIRAcetam 250MG TABLET (KEPPRA) PO SCH ×2 (09:27→20:14)
[2019-06-01] MEDS: DOXAZOSIN MESYLATE 4 MG TAB PO SCH (09:27)
[2019-06-01] MEDS: POLYVINYL ALCOHOL OPHTH SOLN 15 ML(LIQUITEARS) OU SCH ×4 (09:28→20:16)
[2019-06-01] MEDS ORDERED: VARIBAR PUDDING 40% w/v 230ML TUBE As Ordered ONE (14:27)
[2019-06-01] MEDS ORDERED: E-Z-PAQUE 96% w/w SUSP 176GM BTL As Ordered ONE (14:27)
[2019-06-01] MEDS ORDERED: VARIBAR NECTAR 40% w/v 240ML SUSP BTL As Ordered ONE (14:27)
[2019-06-01] MEDS ORDERED: BARIUM SULFATE 700 MG TABLET (E-Z-DISK) As Ordered ONE (14:28)
[2019-06-01 14:35] VITALS: BP 160/79
[2019-06-01] MEDS ORDERED: **hydrALAZINE** 50 MG TAB PO PRN (16:00)
--- NOTE | 2019-06-01 16:14 | REP ---
COOKIE SWALLOW The procedure was performed under the direct supervision of Dr. Velázquez. The procedure was performed with Anita Hebert from speech pathology present. 5 ml aliquots of nectar, thin and soft solid consistency barium was administered. With nectar consistency barium there is aspiration when using a straw. There was delayed cough response. A detailed report of this examination will be provided by speech pathology. 2.3 minutes of fluoroscopy time was utilized for this procedure. Electronically Signed by JULIO CESAR Doyle 06/01/2019 03:38 P Electronically Signed by Yash Velázquez MD 06/01/2019 04:04 P
[2019-06-01 16:16] VITALS: BP 157/71
--- NOTE | 2019-06-01 17:07 | IPNPDOC ---
PM&R Progress Note [employer]er Progress Note DATE OF ADMISSION: May 10, 2019 at 12:30 INPATIENT REHABILITATION ADMISSION DAY: # SUBJECTIVE: Patient is a -year-old with . ALLERGIES: See Below MEDICATIONS: Reviewed, see below. OBJECTIVE: VITAL SIGNS: Please see below. PHYSICAL EXAMINATION: GENERAL: [Cachectic, well developed, sitting up in bed, no acute distress]. HEENT: [Normocephalic, atraumatic]. [No facial droop]. [Poor dentition, missing teeth. PERRL, EOMI]. CARDIOVASCULAR: [S1, S2, irregular rate]. [No lower limb edema or calf tenderness]. LUNGS: [Decreased breath sounds, coarse throughout]. ABDOMEN: [Soft, nontender, nondistended. Normoactive bowel sounds throughout]. MUSCULOSKELETAL: MMT: /5 strength proximally bilateral shoulder abduction, forward flexion and bilateral hip flexion. /5 strength bilateral elbow flexion, knee flexion, /5 bilateral elbow extension and knee extension. /5 mid level business analyst, dorsiflexion, plantar flexion. NEUROLOGICAL: [Alert and oriented times three]. [Answers all question appropriately]. SKIN: . LABORATORY DATA: Reviewed. Please see below. MICROBIOLOGY: Please see below. IMAGING: ASSESSMENT AND PLAN: 1. . 2. . 3. . TIME SPENT: Chart Review, examination and documentation minutes. Allergies Coded Allergies: No Known Allergies (Unverified , 05/10/19) Vital Signs Vital Signs Date Time Temp Pulse Resp B/P (MAP) Pulse Ox O2 Delivery O2 Flow Rate FiO2 06/01/19 16:16 97.7 62 16 157/71 (99) 97 Current Medications Current Medications Current Medications Medications (Trade) Dose Ordered Sig/Maricruz Route PRN Reason Start Time Stop Time Status Last Admin Dose Admin Acetaminophen (Tylenol Suspension) 650 mg Q4HP PRN GT PAIN OR FEVER 05/10/19 12:45 05/24/19 15:53 DC 05/22/19 00:13 Acetaminophen (Tylenol Suspension) 650 mg Q4HP PRN PO PAIN OR FEVER 05/24/19 16:00 Albuterol/ Ipratropium (Duoneb (Ipr 0.5mg/Alb 2.5mg)) 3 ml RBID NEB 05/11/19 08:00 05/12/19 12:31 DC 05/12/19 07:28 Amlodipine Besylate (Norvasc) 2.5 mg QHS PO 05/20/19 21:00 05/23/19 06:46 DC 05/22/19 18:33 Amlodipine Besylate (Norvasc) 5 mg BID PO 05/30/19 09:00 06/01/19 09:27 Amlodipine Besylate (Norvasc) 5 mg DAILY@1700 PO 05/23/19 17:00 05/30/19 10:21 DC 05/29/19 17:24 Amlodipine Besylate (Norvasc) 10 mg BID PO 06/01/19 21:00 UNV Artificial Tears (Akwa Tears) 2 drop QID OU 05/10/19 13:00 06/01/19 16:56 Aspirin (Aspirin Chewable) 81 mg DAILY PEG 05/11/19 09:00 05/23/19 18:08 DC 05/23/19 07:59 Aspirin (Ecotrin) 81 mg DAILY PO 05/30/19 09:00 06/01/19 09:26 Atorvastatin Calcium (Lipitor) 80 mg DAILY GT 05/11/19 09:00 05/24/19 15:53 DC 05/24/19 07:47 Atorvastatin Calcium (Lipitor) 80 mg DAILY PO 05/25/19 09:00 06/01/19 09:27 Carbamide Peroxide (Debrox) 5 drop PCHS XX 05/10/19 18:30 05/14/19 18:29 Cancel Clopidogrel Bisulfate (PLAVix) 75 mg DAILY PO 05/11/19 09:00 06/01/19 09:26 Dextrose (Dextrose 50%) 25 ml ASDIRECTED PRN IV SEE LABEL COMMENTS 05/10/19 12:45 05/18/19 12:25 DC Dextrose (Dextrose 50%) 25 ml ASDIRECTED PRN IV SEE LABEL COMMENTS 05/17/19 10:30 Dextrose/Sodium Chloride 1,000 ml @ 75 mls/hr [id number] IV 05/12/19 18:45 05/14/19 13:16 DC 05/14/19 06:30 Doxazosin Mesylate (Cardura) 2 mg DAILY GT 05/12/19 09:00 05/24/19 15:53 DC 05/24/19 05:27 Doxazosin Mesylate (Cardura) 2 mg DAILY PO 05/11/19 09:00 05/11/19 11:43 DC 05/11/19 07:58 Doxazosin Mesylate (Cardura) 2 mg DAILY PO 05/25/19 09:00 05/30/19 17:25 DC 05/30/19 08:07 Doxazosin Mesylate (Cardura) 4 mg DAILY PO 05/31/19 09:00 06/01/19 09:27 Enoxaparin Sodium (Lovenox) 40 mg DAILY SC 05/11/19 09:00 05/23/19 15:34 DC 05/23/19 08:03 Fluoxetine HCl (PROzac) 20 mg QHS GT 05/11/19 21:00 05/24/19 15:53 DC 05/23/19 21:04 Fluoxetine HCl (PROzac) 20 mg QHS PO 05/24/19 21:00 05/31/19 20:23 Glucagon (Glucagon) 1 mg ASDIRECTED PRN SC SEE LABEL COMMENTS 05/10/19 12:45 05/18/19 12:25 DC Glucagon (Glucagon) 1 mg ASDIRECTED PRN SC SEE LABEL COMMENTS 05/17/19 10:30 Glucose (Glucose) 16 GM ASDIRECTED PRN PO SEE LABEL COMMENTS 05/10/19 12:45 05/18/19 12:25 DC Glucose (Glucose) 16 GM ASDIRECTED PRN PO SEE LABEL COMMENTS 05/17/19 10:30 Guaifenesin (Robitussin) 10 ml BID GT 05/11/19 09:00 05/24/19 12:16 DC 05/24/19 07:46 Home Med (Med Rec Complete!) ASDIRECTED XX 05/10/19 13:30 05/10/19 13:30 DC Hydralazine HCl (Apresoline) 20 mg TID PO 05/16/19 09:00 05/18/19 16:30 DC 05/18/19 16:16 Hydralazine HCl (Apresoline) 40 mg Q6H PO 05/26/19 12:00 05/30/19 02:08 DC 05/30/19 00:04 Hydralazine HCl (Apresoline) 40 mg QID PO 05/23/19 13:00 05/26/19 10:08 DC 05/26/19 06:07 Hydralazine HCl (Apresoline) 40 mg TID PO 05/18/19 21:00 05/23/19 12:05 DC 05/23/19 08:04 Hydralazine HCl (Apresoline) 50 mg Q6H PO 05/30/19 06:00 05/30/19 02:28 DC Hydralazine HCl (Apresoline) 50 mg Q6H PO 05/30/19 06:00 06/01/19 16:00 [place] 06/01/19 06:02 Hydralazine HCl (Apresoline) 50 mg Q6H PRN PO SBP >140 06/01/19 16:00 Hydralazine HCl (Apresoline) 50 mg TID PO 05/19/19 09:00 05/19/19 17:00 DC 05/19/19 08:29 Insulin Detemir (Levemir Insulin) 5 units DAILY@0000 SD 05/12/19 00:00 05/17/19 10:31 [place] 05/16/19 00:10 Insulin [facility]emir ([facility]) [facility] 05/10/19 21:00 05/11/19 11:56 DC Insulin Human Lispro (HumaLOG INSULIN) SEE PROTOCOL TABLE AC SD 05/10/19 17:30 05/11/19 11:46 DC 05/11/19 07:56 Insulin Human Lispro (HumaLOG INSULIN) SEE PROTOCOL TABLE AC SD 05/17/19 07:30 06/01/19 12:53 Insulin Human Lispro (HumaLOG INSULIN) [id number] 05/11[facility] 12:00 05/17/19 10:31 DC 05/17/19 06:23 Insulin Human Lispro (HumaLOG INSULIN) [facility]OTOCOL [facility] 05/10/19 21:00 05/11/19 11:46 DC Insulin Human Lispro (HumaLOG INSULIN) SEE PROTOCOL TABLE [facility] 05/17/19 21:00 05/30/19 20:58 Lansoprazole (First-Lansoprazole Oral Suspension) 30 mg BID PEG 05/11/19 21:00 05/24/19 15:53 DC 05/24/19 07:48 Lansoprazole (First-Lansoprazole Oral Suspension) 30 mg BID PO 05/24/19 21:00 06/01/19 09:26 Lansoprazole (First-Lansoprazole Oral Suspension) 30 mg DAILY PEG 05/10/19 09:00 05/11/19 11:46 DC 05/11/19 07:57 Levetiracetam (Keppra Oral Solution) 250 mg BID GT 05/24/19 18:15 05/24/19 18:59 DC 05/24/19 18:50 Levetiracetam (Keppra Oral Solution) 250 mg BID PO 05/24/19 21:00 05/26/19 17:36 DC 05/26/19 08:15 Levetiracetam (Keppra) 500 mg BID PO 05/26/19 21:00 06/01/19 09:27 Levofloxacin (Levaquin) 750 mg DAILY@06 GT 05/11/19 10:30 05/17/19 06:01 DC 05/17/19 06:23 Lidocaine/ Diphenhydr/Alum/ Mg/Simeth (Magic Mouthwash) 5ml AC SSP 05/11/19 07:30 05/11/19 11:43 DC 05/11/19 07:54 Lisinopril (Prinivil) 5 mg DAILY GT 05/12/19 09:00 05/12/19 11:05 DC 05/12/19 09:31 Lisinopril (Prinivil) 5 mg DAILY PO 05/11/19 09:00 05/11/19 11:43 DC 05/11/19 07:59 Lisinopril (Prinivil) 10 mg DAILY GT 05/21/19 09:00 05/24/19 09:40 DC 05/24/19 07:47 Lisinopril (Prinivil) 20 mg BID PO 06/01/19 21:00 Lisinopril (Prinivil) 20 mg DAILY GT 05/13/19 09:00 05/20/19 10:38 DC 05/20/19 08:54 Lisinopril (Prinivil) 20 mg QHS GT 05/24/19 21:00 05/24/19 15:53 DC Lisinopril (Prinivil) 20 mg QHS PO 05/24/19 21:00 06/01/19 16:02 DC 05/31/19 20:23 Lorazepam (Ativan) 1 mg Q6HP PRN IM AGITATION 05/12/19 09:15 05/23/19 09:00 DC Lorazepam (Ativan) 2 mg Q4HP PRN IM SEIZURES 05/24/19 19:45 05/31/19 08:36 DC Metformin HCl (Glucophage) 500 mg DAILY@08 PO 06/01/19 08:00 06/01/19 09:26 Miscellaneous (Unresolved Clarification Entry) SEE LABEL COMMENTS DAILY XX 05/22/19 09:00 05/22/19 15:57 DC Miscellaneous (Unresolved Clarification Entry) SEE LABEL COMMENTS DAILY XX 05/30/19 09:00 06/01/19 16:04 DC Miscellaneous (Unresolved Patient Own Med Order) SEE LABEL COMMENTS DAILY XX 05/12/19 09:00 05/15/19 14:52 DC Morphine Sulfate (Roxanol) 5 mg Q2HP PRN SL PAIN 05/12/19 16:00 05/18/19 11:04 DC 05/12/19 16:23 Patient Own Medication (Patient'S Own Med) SWISH AND SPIT 5 DROPS... PCHS SSP 05/10/19 18:30 05/15/19 18:17 DC Patient Own Medication (Patient'S Own Med) SWISH AND SPIT 5 DROPS... PCHS SSP 05/15/19 18:30 05/31/19 20:34 Propranolol HCl (Inderal Liquid) 10 mg TID PO 05/11/19 21:00 05/20/19 10:38 DC 05/20/19 08:52 Tamsulosin HCl (Flomax) 0.4 mg BID PO 05/18/19 21:00 05/20/19 10:38 DC 05/20/19 08:54 Tamsulosin HCl (Flomax) 0.4 mg DAILY PO 05/18/19 10:00 05/18/19 12:59 DC 05/18/19 10:20 Tamsulosin HCl (Flomax) 0.4 mg QHS PO 05/20/19 21:00 05/22/19 21:56 DC 05/22/19 21:14 Tamsulosin HCl (Flomax) 0.8 mg QHS PO 05/23/19 21:00 05/31/19 20:23 Trazodone HCl (Desyrel) 25 mg Q6HP PRN GT AGITATION 05/11/19 11:45 05/24/19 15:53 DC 05/11/19 18:36 Trazodone HCl (Desyrel) 25 mg Q6HP PRN PO AGITATION 05/10/19 12:45 05/11/19 11:43 DC Trazodone HCl (Desyrel) 25 mg Q6HP PRN PO AGITATION 05/24/19 16:00 Trazodone HCl (Desyrel) 25 mg QHS GT 05/11/19 21:00 05/12/19 09:07 DC 05/11/19 20:53 Trazodone HCl (Desyrel) 25 mg QHS PO 05/10/19 21:00 05/11/19 11:43 DC 05/10/19 20:39 Trazodone HCl (Desyrel) 50 mg QHS GT 05/12/19 21:00 05/24/19 17:35 DC 05/23/19 21:05 Trazodone HCl (Desyrel) 50 mg QHS PO 05/24/19 21:00 05/31/19 20:22 SHARAN HOOVER MD Jun 01, 2019 17:07
[2019-06-01] MEDS: FLUoxetine 20 MG CAP PO SCH (20:15)
[2019-06-01] MEDS: TAMSULOSIN 0.4 MG CAP PO SCH (20:15)
[2019-06-01] MEDS: traZODone 50 MG TAB PO SCH (20:15)
[2019-06-01] MEDS: LISINOPRIL 20 MG TAB PO SCH (20:15)
[2019-06-01] MEDS ORDERED: amLODIPine 5 MG TAB PO SCH (21:00)
[2019-06-01 21:05] VITALS: BP 172/78
[2019-06-01 22:51] VITALS: BP 160/68
[2019-06-02 05:35] VITALS: BP 144/62
[2019-06-02] MEDS: HumaLOG INSULIN (NovoLOG) PER UNIT SC SCH ×4 (09:16→19:45)
[2019-06-02] MEDS: LANSOPRAZOLE SUSPENSION 30 MG/10 ML ORAL SYRINGE (FIRST-LANSOPRAZOLE) PO SCH ×2 (09:17→20:44)
[2019-06-02] MEDS: levETIRAcetam 250MG TABLET (KEPPRA) PO SCH ×2 (09:17→20:44)
[2019-06-02] MEDS: metFORMIN (GLUCOPHAGE) 500 MG TAB PO SCH (09:17)
[2019-06-02] MEDS: ATORVASTATIN 20 MG TAB PO SCH (09:17)
[2019-06-02] MEDS: ASPIRIN 81 MG ENTERIC TAB PO SCH (09:17)
[2019-06-02] MEDS: CLOPIDOGREL 75 MG TAB PO SCH (09:17)
[2019-06-02] MEDS: POLYVINYL ALCOHOL OPHTH SOLN 15 ML(LIQUITEARS) OU SCH ×4 (09:18→20:45)
[2019-06-02] MEDS: GLY OXIDE SSP SCH ×4 (09:18→20:45)
[2019-06-02] MEDS: DOXAZOSIN MESYLATE 4 MG TAB PO SCH (09:19)
[2019-06-02] MEDS: amLODIPine 5 MG TAB PO SCH ×2 (09:20→20:44)
[2019-06-02] MEDS: LISINOPRIL 20 MG TAB PO SCH ×2 (09:20→20:44)
[2019-06-02] MEDS: **hydrALAZINE** 10 MG TAB PO SCH ×3 (12:48→23:44)
[2019-06-02 14:00] VITALS: BP 132/65
[2019-06-02] MEDS: TAMSULOSIN 0.4 MG CAP PO SCH (20:44)
[2019-06-02] MEDS: FLUoxetine 20 MG CAP PO SCH (20:44)
[2019-06-02] MEDS: traZODone 50 MG TAB PO SCH (20:44)
[2019-06-02 21:00] VITALS: BP 138/68
[2019-06-02 23:44] VITALS: BP 140/70
[2019-06-03] MEDS: **hydrALAZINE** 10 MG TAB PO SCH ×2 (05:29→12:28)
[2019-06-03 07:00] VITALS: BP 130/62
[2019-06-03] MEDS: metFORMIN (GLUCOPHAGE) 500 MG TAB PO SCH (07:16)
[2019-06-03] MEDS: HumaLOG INSULIN (NovoLOG) PER UNIT SC SCH ×3 (07:16→12:28)
[2019-06-03] MEDS: GLY OXIDE SSP SCH (08:30)
[2019-06-03] MEDS: CLOPIDOGREL 75 MG TAB PO SCH (08:33)
[2019-06-03] MEDS: ASPIRIN 81 MG ENTERIC TAB PO SCH (08:33)
[2019-06-03] MEDS: levETIRAcetam 250MG TABLET (KEPPRA) PO SCH (08:33)
[2019-06-03] MEDS: ATORVASTATIN 20 MG TAB PO SCH (08:33)
[2019-06-03] MEDS: LANSOPRAZOLE SUSPENSION 30 MG/10 ML ORAL SYRINGE (FIRST-LANSOPRAZOLE) PO SCH (08:33)
[2019-06-03] MEDS: amLODIPine 5 MG TAB PO SCH (08:37)
[2019-06-03] MEDS: LISINOPRIL 20 MG TAB PO SCH (08:37)
[2019-06-03] MEDS: DOXAZOSIN MESYLATE 4 MG TAB PO SCH (08:38)
[2019-06-03] MEDS: POLYVINYL ALCOHOL OPHTH SOLN 15 ML(LIQUITEARS) OU SCH (08:38)
[2019-06-03] MEDS ORDERED: GLUC500T PO (10:39)
[2019-06-03] MEDS ORDERED: TRAZ-252 PO (10:39)
[2019-06-03] MEDS ORDERED: KEPP250T5 PO (10:39)
[2019-06-03] MEDS ORDERED: CLOP75TA2 PO (10:39)
[2019-06-03] MEDS ORDERED: ATOR1TAB21 PO (10:39)
[2019-06-03] MEDS ORDERED: HYDR10TAB PO (10:39)
[2019-06-03] MEDS ORDERED: LISI-538 PO (10:39)
[2019-06-03] MEDS ORDERED: FLUO20CA19 PO (10:39)
[2019-06-03] MEDS ORDERED: DOXA4TAB PO (10:39)
[2019-06-03] MEDS ORDERED: FLOM0.4C39 PO (10:39)
[2019-06-03] MEDS ORDERED: ASPI81TAEC PO (10:39)
[2019-06-03] MEDS ORDERED: AMLO5TAB6 PO (10:39)
[2019-06-03] MEDS ORDERED: METF500T13 PO (10:41)
[2019-06-03 12:28] VITALS: BP 147/72
[2019-06-03 12:42] VITALS: BP 147/72
== END 2019-06-03 13:40 | disposition home health service (06) | DRG 57 ==
LOC: M PM&R 12:30
PROVIDERS: ADMIT Physical Medicine & Rehabilitation; ATTEND Physical Medicine & Rehabilitation
PROC: 0DH64UZ Insertion of Feeding Device into Stomach, Percutaneous Endoscopic Approach (ICD-10-PCS; principal; 2019-05-13)
DX: I69.321 Dysphasia following cerebral infarction (principal); I69.354 Hemiplegia and hemiparesis following cerebral infarction affecting left non-dominant side; G93.40 Encephalopathy, unspecified; I69.320 Aphasia following cerebral infarction; I10 Essential (primary) hypertension; Z79.82 Long term (current) use of aspirin; Z79.899 Other long term (current) drug therapy; I67.2 Cerebral atherosclerosis; Z79.4 Long term (current) use of insulin; Z93.1 Gastrostomy status; E11.9 Type 2 diabetes mellitus without complications; G47.00 Insomnia, unspecified; R33.9 Retention of urine, unspecified; R56.9 Unspecified convulsions; E78.5 Hyperlipidemia, unspecified; F32.9 Major depressive disorder, single episode, unspecified; N40.0 Benign prostatic hyperplasia without lower urinary tract symptoms

== ENCOUNTER 2019-05-13 14:30 | Day surgery (SDC) | payer OTHER ==
[~2019-05-13 14:30] MED LIST: ACET-907 PO; ASPI81CH44 PO; CLOP75TA2 PO; DOXA2TAB3 PO; INSUHUMDS SC; LIPI80TA PO; LISI-542 PO; LOVE1INJ SC; MELA5TAB7 PO; QUET1TAB7 PO; [UNRECOGNIZED DRUG - CODE] MT
[2019-05-13] MEDS ORDERED: ONDANSETRON 4MG/2ML VIAL (J2405) As Ordered ONE (15:03)
[2019-05-13] MEDS ORDERED: dexameTHASONE 4 MG/ML 1ML VIAL (J1100) As Ordered ONE (15:03)
[2019-05-13] MEDS ORDERED: fentaNYL 250 MCG/5 ML INJECTION (J3010) As Ordered ONE (15:03)
[2019-05-13] MEDS ORDERED: LIDOCAINE 2% INJ 100 MG/5 ML SDV (FOR ANES.) As Ordered ONE (15:03)
[2019-05-13] MEDS ORDERED: ROCURONIUM BROMIDE 50 MG/5 ML VIAL As Ordered ONE (15:03)
[2019-05-13] MEDS ORDERED: SUGAMMADEX SODIUM 500 MG/5 ML VIAL (BRIDION) As Ordered ONE (15:03)
[2019-05-13] MEDS ORDERED: ePHEDrine SULFATE 25 MG/5 ML(5MG/ML) SYRINGE As Ordered ONE (15:03)
[2019-05-13] MEDS ORDERED: PROPOFOL 200 MG/20 ML VIAL As Ordered ONE (15:03)
[2019-05-13] MEDS ORDERED: MIDAZOLAM INJ 2 MG/2 ML VIAL (J2250) As Ordered ONE (15:03)
[2019-05-13] MEDS ORDERED: METOCLOPRAMIDE INJ 10MG/2ML VIAL (J2765) As Ordered ONE (15:03)
[2019-05-13] MEDS ORDERED: LIDOCAINE 2% JELLY 6 ML SYRINGE As Ordered ONE (15:03)
[2019-05-13] MEDS ORDERED: DESFLURANE 240 ML INHALANT As Ordered ONE (15:49)
[2019-05-13] MEDS ORDERED: LABETALOL HCL 100 MG/20 ML VIAL As Ordered ONE (15:55)
[2019-05-13] MEDS: LABETALOL HCL 100 MG/20 ML VIAL IV PRN ×5 (16:09→16:42)
[2019-05-13] MEDS ORDERED: ACETAMINOPHEN 325 MG/10.15 ML UDC GT PRN (16:15)
[2019-05-13] MEDS ORDERED: ONDANSETRON 4MG/2ML VIAL (J2405) IV PRN (16:30)
[2019-05-13] MEDS ORDERED: fentaNYL 100 MCG/2 ML INJECTION (J3010) IV PRN (16:30)
[2019-05-13] MEDS ORDERED: LR 1,000 ML IV SCH (16:30)
[2019-05-13] MEDS: hydrALAZINE INJ 20 MG/ML VIAL IV PRN ×3 (16:45→16:55)
[2019-05-13] MEDS ORDERED: hydrALAZINE INJ 20 MG/ML VIAL As Ordered ONE (16:47)
[2019-05-13 17:10] VITALS: BP 130/58
--- NOTE | 2019-05-13 20:14 | POST-OPPD ---
Postoperative Procedure Note Date Of Procedure: May 13, 2019 PREOPERATIVE DIAGNOSIS: dislodged feeding gastrostomy tube (7 day old) POSTOPERATIVE DIAGNOSIS: dislodged feeding gastrostomy tube FINDINGS: The stomach has not adhered to the abdominal wall. The gastrotomy was visualized but did not leak any gastric fluid. PROCEDURE: Diagnostic Laparoscopy, Upper gastrointestinal endoscopy and placement of new gastrostomy feeding tube. SURGEON: Shakir Neville MD MANAGER TRACK: Jay Stephens MD ANESTHESIA: General Anesthesia SPECIMENS: none ESTIMATED BLOOD LOSS: 10 mLs DRAINS: none COMPLICATIONS: none POSTOPERATIVE CONDITION: stable, extubated to PACU SHAKIR NEVILLE MD May 13, 2019 20:14
[2019-05-13] MEDS ORDERED: LANSOPRAZOLE SUSPENSION 30 MG/10 ML ORAL SYRINGE (FIRST-LANSOPRAZOLE) GT SCH (21:00)
[2019-05-13] MEDS ORDERED: traZODone 50 MG TAB GT SCH (21:00)
[2019-05-13] MEDS ORDERED: PROPRANOLOL 20 MG/5 ML PO SCH (21:00)
[2019-05-13] MEDS ORDERED: LEVEMIR (INSULIN DETEMIR) 1 UNITS/0.01ML SC SCH (21:00)
[2019-05-13] MEDS ORDERED: FLUoxetine 20 MG CAP GT SCH (21:00)
[2019-05-14] MEDS ORDERED: ENOXAPARIN 40 MG/0.4 ML SYRINGE (J1650) SC SCH (09:00)
[2019-05-14] MEDS ORDERED: LISINOPRIL 20 MG TAB GT SCH (09:00)
[2019-05-14] MEDS ORDERED: ASPIRIN 81 MG CHEW TABLET PEG SCH (09:00)
[2019-05-14] MEDS ORDERED: DOXAZOSIN MESYLATE 1 MG TAB GT SCH (09:00)
[2019-05-14] MEDS ORDERED: CLOPIDOGREL 75 MG TAB GT SCH (09:00)
--- NOTE | 2019-05-16 05:41 | IPN ---
DATE OF VISIT: 05/14/2019 Patient overall had a laparoscopy with the replacement of this percutaneous endoscopic gastrostomy (PEG) tube. He seems to be doing quite well with the PEG tube placement and tolerating tube feeds all ready. He has had no problems with this. He is nonverbal so it was difficult to communicate with but in any case, the gastric (G) tube is in place, it is functioning well and he is tolerating his tube feeds. He has been afebrile and thus from a surgical standpoint can continue on his current medical treatments.
[2019-05-16] MEDS ORDERED: VARIBAR NECTAR 40% w/v 240ML SUSP BTL As Ordered ONE (10:51)
[2019-05-16] MEDS ORDERED: BARIUM SULFATE 700 MG TABLET (E-Z-DISK) As Ordered ONE (10:51)
[2019-05-16] MEDS ORDERED: E-Z-PAQUE 96% w/w SUSP 176GM BTL As Ordered ONE (10:51)
[2019-05-16] MEDS ORDERED: VARIBAR PUDDING 40% w/v 230ML TUBE As Ordered ONE (10:51)
== END 2019-05-13 17:30 ==
LOC: M SDC 14:30
PROVIDERS: ATTEND Surgery
DX: K94.23 Gastrostomy malfunction (principal); I10 Essential (primary) hypertension; N40.0 Benign prostatic hyperplasia without lower urinary tract symptoms; E11.9 Type 2 diabetes mellitus without complications; Z79.4 Long term (current) use of insulin; Z86.73 Personal history of transient ischemic attack (TIA), and cerebral infarction without residual deficits; Z79.899 Other long term (current) drug therapy; Z87.891 Personal history of nicotine dependence
CPT/HCPCS: 43246; 49320; J1100; J2250; J2405; J2765; J3010